=== PATIENT | female | born 1935 | race Caucasian/White ===

== ENCOUNTER 2018-04-21 17:46 | Emergency (ER) | payer OTHER ==
[~2018-04-21] VITALS: Ht 152.4 cm; Wt 52.6 kg
[2018-04-21 18:00] VITALS: BP 114/60
--- NOTE | 2018-04-21 19:00 | NUR ---
PT REFUSING TO STAY & BE TREATED, SON SIGNED AMA. MAYUR, SEWING MACHINE OPERATOR SEMIAUTOMATIC AWARE.
== END 2018-04-21 19:37 | disposition left against medical advice (07) ==
LOC: EDBD 17:55 → ER 17:55
DX: I10 Essential (primary) hypertension (principal); K21.9 Gastro-esophageal reflux disease without esophagitis; E78.00 Pure hypercholesterolemia, unspecified; F03.90 Unspecified dementia, unspecified severity, without behavioral disturbance, psychotic disturbance, mood disturbance, and anxiety
CPT/HCPCS: Z7502

== ENCOUNTER 2018-10-21 14:30 | Inpatient (IN) | payer MEDICARE, MEDICAID ==
[~2018-10-21] VITALS: Ht 160 cm; Wt 52.2 kg
--- NOTE | 2018-10-21 14:55 | NUR ---
LATOSHA FROM [facility], SEND BY PMD FOR ELEVATED K+ LEVEL. A/OX2, TAJIK SPEAKING, NO DISTRESS NOTED, NEEDS ATTENDED. KEPT COMFORTABLE. ATTACHED TO THE MONITOR.
[2018-10-21] MEDS ORDERED: ASCO500T9 PO (15:12)
[2018-10-21] MEDS ORDERED: ASPI-1169 PO (15:12)
[2018-10-21] MEDS ORDERED: ESCI5TAB PO (15:12)
[2018-10-21] MEDS ORDERED: ACET-868 PO (15:12)
[2018-10-21] MEDS ORDERED: ACET-2605 PO (15:12)
[2018-10-21] MEDS ORDERED: ALLO100T PO (15:12)
[2018-10-21] MEDS ORDERED: LORA0.5T PO (15:12)
[2018-10-21] MEDS ORDERED: AMLO5TAB9 PO (15:12)
[2018-10-21] MEDS ORDERED: HYDR-4076 PO ×2 (15:12)
[2018-10-21] MEDS ORDERED: ONDA4TAB5 PO (15:12)
[2018-10-21] MEDS ORDERED: PANT40TA2 PO (15:12)
[2018-10-21 15:23] LABS: BASOPHILS # (AUTO) 0.1 /CMM (0.0-0.2); BASOPHILS % (AUTO) 0.9 % (0.0-2.0); EOSINOPHILS % (AUTO) 4.3 % (0.0-6.0); HEMATOCRIT 26 % (33-45); HEMOGLOBIN 8.6 g/dL (11.5-14.8); LYMPHOCYTES # (AUTO) 1.4 /CMM (0.8-4.8); LYMPHOCYTES % (AUTO) 20.6 % (20.0-44.0); MEAN CORPUSCULAR HGB CONC 33 g/dl (31.0-36.0); MEAN CORPUSCULAR VOLUME 96 fL (82-100); MONOCYTES # (AUTO) 0.9 /CMM (0.1-1.30); MONOCYTES % (AUTO) 13.3 % (2.0-12.0); NEUTROPHILS % (AUTO) 60.9 % (43.0-81.0); PLATELET COUNT (AUTO) 235 /CMM (150-450); RED BLOOD CELL COUNT(AUTO) 2.74 MIL/uL (4.0-5.2); WHITE BLOOD COUNT (AUTO) 6.5 K/uL (4.3-11.0)
[2018-10-21 15:37] LABS: CARBON DIOXIDE 14 mmol/L (21-32); CHLORIDE 108 mmol/L (98-107); CREATININE 4.2 mg/dL (0.6-1.3); GLUCOSE 102 mg/dL (74-106); POTASSIUM 4.5 mmol/L (3.5-5.1); SODIUM SERUM 139 mmol/L (136-145); UREA NITROGEN, BLOOD 48 mg/dL (7-18)
[2018-10-21 15:41] LABS: CALCIUM, SERUM 8.2 mg/dL (8.5-10.1)
--- NOTE | 2018-10-21 16:44 | NUR ---
CALLED FOR BED, TURNED IN MOVE SHEET, GOING TO BED 308-1
--- NOTE | 2018-10-21 17:24 | NUR ---
REPORT GIVEN TO FAITH RANDHAWA.
[2018-10-21] MEDS ORDERED: IV NS 0.9% 1,000 ML IV PRN (17:45)
--- NOTE | 2018-10-21 17:59 | NUR ---
PATIENT TRANSFERRED TO ROOM 308 MED SURG. PATIENT IN STABLE CONDITION. UNA EDGE. ENDORSED TO FAITH RANDHAWA.
[2018-10-21] MEDS ORDERED: ACETAMINOPHEN 325 MG TABLET PO PRN (18:00)
[2018-10-21] MEDS ORDERED: MAG HYDROX/AL HYDROX/SIMETH 30 ML UDC PO PRN (18:00)
[2018-10-21] MEDS ORDERED: Z GUARD REMEDY 2 OZ OINT TP PRN (18:00)
[2018-10-21] MEDS ORDERED: ONDANSETRON HCL/PF 4 MG/2 ML VIAL IVP PRN (18:00)
[2018-10-21] MEDS ORDERED: hydrALAZINE HCL 25 MG TABLET PO PRN (18:00)
[2018-10-21] MEDS ORDERED: MAGNESIUM HYDROXIDE 30 ML UDC PO PRN (18:00)
[2018-10-21] MEDS ORDERED: HYDROCODONE/APAP 5/325MG 1 EACH TABLET PO PRN (18:00)
[2018-10-21] MEDS ORDERED: LORAZEPAM 0.5 MG TABLET PO PRN (18:00)
[2018-10-21 18:30] VITALS: BP 186/73
--- NOTE | 2018-10-21 19:30 | NUR ---
MS RN NOTES RECEIVED REPORT FROM FAITH RANDHAWA,PATIENT CAME FROM ER PER ANTHONY,WAS SENT FROM [facility] FOR ELEVATED POTASSIUM ON 10/15MNOW ELEVATED BUN AND CREATININE.A/O X1-2,SPEAK THAI WITH LITTLE KINYARWANDA, NOTED SLIGHT BRUISING ON BOTH UPPER ARMS,SALINE LOCK OUT,FOUND ON BEDSIDE TABLE.NO BLEEDING ON SITE.EATING RIGHT NOW DINNER FOOD.FALL PRECAUTION OBSERVED,BED ON LOWEST POSITION AND LOCKED.CALL LIGHT IN REACH,NEEDS ANTICIPATED.
[2018-10-21 19:58] VITALS: BP 160/71
--- NOTE | 2018-10-21 20:00 | NUR ---
MS RN NOTES NEW SALINE LOCK PLACE ON RIGHT FORE ARM #22,SECURED WITH BROWN SLEEVE.
[2018-10-21 20:37] VITALS: BP 160/71
[2018-10-21 21:22] LABS: HEMOGLOBIN 8.5 g/dL (11.5-14.8)
[2018-10-22 06:32] LABS: CHOLESTEROL 147 mg/dL (<200); HDL CHOLESTEROL 35 mg/dL (40-60); LDL 99 mg/dL (0-99); THYROID STIMULATING HORMONE 2.094 uIU/mL (0.358-3.74); TRIGLYCERIDES 81 mg/dL (30-150)
[2018-10-22 06:33] LABS: CALCIUM, SERUM 8.6 mg/dL (8.5-10.1); CARBON DIOXIDE 14 mmol/L (21-32); CHLORIDE 111 mmol/L (98-107); CREATININE 4.4 mg/dL (0.6-1.3); GLUCOSE 90 mg/dL (74-106); MAGNESIUM 1.4 mg/dL (1.8-2.4); PHOSPHORUS 5.4 mg/dL (2.5-4.9); POTASSIUM 4.9 mmol/L (3.5-5.1); SODIUM SERUM 140 mmol/L (136-145); UREA NITROGEN, BLOOD 55 mg/dL (7-18)
--- NOTE | 2018-10-22 06:34 | NUR ---
MS RN NOTES FAIRLY RESTED AT NIGHT,TINO ANY DISCOMFORTS,SALINE LOCK REMAINS PATENT ON RIGHT FORE ARM.CALL LIGHT IN REACHNEEDS ATTENDED,WILL ENDORSE TO DAY NURSE FOR LINO.
[2018-10-22 06:40] LABS: BASOPHILS # (AUTO) 0.1 /CMM (0.0-0.2); EOSINOPHILS % (AUTO) 5.3 % (0.0-6.0); HEMATOCRIT 24 % (33-45); HEMOGLOBIN 8.1 g/dL (11.5-14.8); LYMPHOCYTES # (AUTO) 1.3 /CMM (0.8-4.8); LYMPHOCYTES % (AUTO) 22.1 % (20.0-44.0); MEAN CORPUSCULAR HGB CONC 34 g/dl (31.0-36.0); MEAN CORPUSCULAR VOLUME 94 fL (82-100); MONOCYTES # (AUTO) 0.7 /CMM (0.1-1.30); MONOCYTES % (AUTO) 12.4 % (2.0-12.0); NEUTROPHILS # (AUTO) 3.4 /CMM (1.8-8.9); NEUTROPHILS % (AUTO) 59.2 % (43.0-81.0); PLATELET COUNT (AUTO) 202 /CMM (150-450); RED BLOOD CELL COUNT(AUTO) 2.54 MIL/uL (4.0-5.2); WHITE BLOOD COUNT (AUTO) 5.7 K/uL (4.3-11.0)
--- NOTE | 2018-10-22 07:27 | NUR ---
RN OPENING NOTES RECEIVED PATIENT IN BED RESTING, A/OX2, CAPE VERDEAN SPEAKING. NOT IN ANY FORM OF DISTRESS, NO SOB. NO S/S OF PAIN OR DISCOMFORT. IV ACCESS INTACT AND PATENT. KEPT PATIENT SAFE AND COMFORTABLE. BED IN LOW/LOCKED POSITION. SIDERAILS UPX2, CALL LIGHT IN REACH. WILL CONTINUE TO MONITOR ACCORDINGLY Addendum: 10/22/18 at 0735 by CECI ARANA BED ALARM ON
[2018-10-22 08:00] VITALS: BP 200/86
[2018-10-22] MEDS: ESCITALOPRAM OXALATE (10 MG) 10 MG TABLET PO SCH (08:20)
[2018-10-22] MEDS: PANTOPRAZOLE 40 MG TABLET.DR PO SCH (08:21)
[2018-10-22] MEDS: ASPIRIN 81 MG TAB.CHEW PO SCH (08:21)
[2018-10-22] MEDS: AMLODIPINE BESYLATE 5 MG TABLET PO SCH ×2 (08:21→16:28)
[2018-10-22] MEDS: ALLOPURINOL 100 MG TABLET PO SCH (08:21)
[2018-10-22] MEDS: hydrALAZINE HCL 25 MG TABLET PO SCH ×3 (08:22→16:28)
[2018-10-22] MEDS: ASCORBIC ACID 500 MG TABLET PO SCH (08:22)
[2018-10-22] MEDS ORDERED: hydrALAZINE HCL IV 20 MG VIAL IV PRN (09:00)
[2018-10-22 09:59] VITALS: BP 159/86
[2018-10-22 12:06] LABS: IRON, SERUM 40 ug/dl (50-175); TOTAL IRON BINDING CAPACITY 255 ug/dl (250-450)
--- NOTE | 2018-10-22 12:30 | NUR ---
RN NOTES PATIENT IS REFUSING CARE. ALSO REFUSED BREAKFAST AND LUNCH. ALWAYS SAYS "NO". CALLED CATHLEENLAZulema TO GET PATIENT BASELINE. PER STAFF, PATIENT ALERT AND ORIENTED, COOPERATIVE, FOLLOWS DIRECTION AND MED COMPLIANT, FEED SELF INDEPENDENTLY AND AMBULATORY. NOTIFIED DELL HEMPHILL NP. PER DELL, PATIENT NEEDS UA AND CULTURE. NO NEED FOR IVF AT THIS TIME. ORDERS NOTED AND WILL CARRY OUT.
[2018-10-22 16:00] VITALS: BP 180/78
[2018-10-22 16:05] LABS: APPEARANCE,URINE CLEAR (CLEAR); BILIRUBIN,URINE NEGATIVE (NEGATIVE); BLOOD, URINE NEGATIVE Ery/uL (NEGATIVE); KETONES,URINE NEGATIVE (NEGATIVE); LEUKOCYTE ESTERASE ,URINE NEGATIVE (NEGATIVE); NITRITE, URINE NEGATIVE (NEGATIVE); PROTEIN,URINE 1+ mg/dl (NEGATIVE); UGLUCOSE NEGATIVE (NEGATIVE); UROBILINOGEN,URINE 0.2 EU/dL (0.2)
[2018-10-22 16:07] LABS: COLOR,URINE OTHER (YELLOW)
[2018-10-22 16:32] LABS: BACTERIA,URINE None seen /HPF (None Seen); RBC,URINE 0-2 /HPF (0-2); SQUAMOUS EPITHELIAL CELL,UR Many /HPF (None Seen); WBC,URINE 0-2 /HPF (0-3)
[2018-10-22 18:00] VITALS: BP 140/85
--- NOTE | 2018-10-22 19:24 | NUR ---
RN CLOSING NOTES PATIENT IN STABLE CONDITION. ALL NEEDS ATTENDED AND PROVIDED. ALL DUE MEDICATIONS GIVEN ORDERED. URINE WAS COLLECTED BY FEMALE RN, PATIENT WAS COOPERATIVE IN THE AFTERNOON, TOOK MEDICATIONS, ATE DINNER. KEPT PATIENT SAFE AND COMFORTABLE. BED IN LOW/LOCKED POSITION, SIDERAILS UPX2, CALL LIGHT IN REACH. ENDORSED TO NIGHT RN FOR LINO.
--- NOTE | 2018-10-22 19:40 | NUR ---
MS RN NOTES RECEIVED ON BED ON HIGH FOWLERS POSITION,BREATHING REGULAR,NOT IN ANY FORM DISTRESS.SALINE LOCK RIGHT FORE ARM INTACT AND PATENT.GEL BED IN USED.FALL PRECAUTION OBSERVED.BED ON LOWEST POSITION AND LOCKED.CALL LIGHT IN REACH,NEEDS ANTICIPATED.
[2018-10-22 20:00] VITALS: BP 157/68
[2018-10-22 20:16] VITALS: BP 157/58
[2018-10-23 00:04] LABS: HEMOGLOBIN 8.2 g/dL (11.5-14.8)
--- NOTE | 2018-10-23 05:08 | NUR ---
MS RN NOTES REFUSED BLOOD DRAW THIS MORNING.
--- NOTE | 2018-10-23 06:39 | NUR ---
MS RN NOTES SLEPT WITH INTERVALS,REFUSING BLOOD DRAW MOST OF THE TIME,CHEST X-RAY DONE BY RADIOLOGY.IN NO ACUTE DISTRESS.WILL ENDORSE TO NORA RANDHAWA FOR LINO.
--- NOTE | 2018-10-23 07:37 | NUR ---
MS RN NOTES RECEIVED PATIENT IN BED RESTING COMFORTABLY. A/O X 1-2. ON ROOM AIR. NO COMPLAIN OF PAIN OR DISCOMFORT AT THIS TIME. IV ACCESS ON RIGHT FA #22, CURRENTLY ON HL. SAFETY MEASURES IN PLACE. BED IN LOW LOCKED POSITION, SIDE RAILS UP X2. CALL LIGHT WITHIN EASY REACH. WILL CONTINUE TO MONITOR.
[2018-10-23 08:00] VITALS: BP 170/71
[2018-10-23] MEDS: PANTOPRAZOLE 40 MG TABLET.DR PO SCH (08:20)
[2018-10-23] MEDS: hydrALAZINE HCL 25 MG TABLET PO SCH ×2 (08:21→12:06)
[2018-10-23] MEDS: AMLODIPINE BESYLATE 5 MG TABLET PO SCH (08:21)
[2018-10-23] MEDS: ASPIRIN 81 MG TAB.CHEW PO SCH (08:21)
[2018-10-23] MEDS: ASCORBIC ACID 500 MG TABLET PO SCH (08:22)
[2018-10-23] MEDS: ALLOPURINOL 100 MG TABLET PO SCH (08:22)
[2018-10-23] MEDS: ESCITALOPRAM OXALATE (10 MG) 10 MG TABLET PO SCH (08:22)
[2018-10-23 11:02] LABS: BASOPHILS # (AUTO) 0.1 /CMM (0.0-0.2); BASOPHILS % (AUTO) 1.4 % (0.0-2.0); EOSINOPHILS % (AUTO) 7.8 % (0.0-6.0); HEMATOCRIT 26 % (33-45); HEMOGLOBIN 8.5 g/dL (11.5-14.8); LYMPHOCYTES # (AUTO) 1.2 /CMM (0.8-4.8); MEAN CORPUSCULAR HGB CONC 33 g/dl (31.0-36.0); MEAN CORPUSCULAR VOLUME 95 fL (82-100); MONOCYTES # (AUTO) 0.6 /CMM (0.1-1.30); MONOCYTES % (AUTO) 11.9 % (2.0-12.0); NEUTROPHILS % (AUTO) 55.9 % (43.0-81.0); PLATELET COUNT (AUTO) 229 /CMM (150-450); RED BLOOD CELL COUNT(AUTO) 2.72 MIL/uL (4.0-5.2); WHITE BLOOD COUNT (AUTO) 5.4 K/uL (4.3-11.0)
[2018-10-23 11:17] LABS: ALANINE AMINOTRANSFERASE 19 U/L (12-78); ALBUMIN 2.7 g/dL (3.4-5.0); ALKALINE PHOSPHATASE 63 U/L (46-116); ASPARTATE AMINOTRANSFERASE 16 U/L (15-37); BILIRUBIN,TOTAL 0.2 mg/dL (0.2-1.0); CALCIUM, SERUM 8.5 mg/dL (8.5-10.1); CARBON DIOXIDE 16 mmol/L (21-32); CHLORIDE 109 mmol/L (98-107); CREATININE 4.6 mg/dL (0.6-1.3); GLUCOSE 136 mg/dL (74-106); MAGNESIUM 1.4 mg/dL (1.8-2.4); PHOSPHORUS 4.2 mg/dL (2.5-4.9); POTASSIUM 3.9 mmol/L (3.5-5.1); SODIUM SERUM 140 mmol/L (136-145); TOTAL PROTEIN, SERUM 6.1 g/dL (6.4-8.2); UREA NITROGEN, BLOOD 58 mg/dL (7-18)
[2018-10-23 11:51] LABS: CREATINE KINASE, TOTAL 34 U/L (26-192)
[2018-10-23] MEDS ORDERED: FERR325T23 PO (11:54)
[2018-10-23 12:06] VITALS: BP 146/74
--- NOTE | 2018-10-23 13:45 | NUR ---
MS RN NOTES CALLED [facility], SPOKE TO ALTON @ 3906 TO GIVE REPORT REGARDING THE PATIENT STATUS AND THAT PATIENT WILL BE GOING BACK AT THEIR FACILITY. WILL CONTINUE TO MONITOR.
--- NOTE | 2018-10-23 15:45 | NUR ---
MS AREA COORDINATOR NOTES PATIENT DISCHARGED IN STABLE CONDITION. A/O X 2. V/S TAKEN, STABLE AND RECORDED. PATIENT'S IV ACCESS REMOVED AND APPLIED PRESSURE DRESSINGS. SKIN IS INTACT. NAME ARM BAND REMOVED. ALL BELONGINGS CHECKED AND SIGNED. HEALTH TEACHINGS/DISCHARGED INSTRUCTIONS GIVEN AND VERBALIZED UNDERSTANDING. PATIENT LEFT UNIT VIA GURNEY WITH 2 AMBULANCE STAFF AT 1540 WITH NO ACUTE SIGNS OF DISTRESS. CHARGE NURSE AWARE OF DISCHARGED.
[2018-10-24 13:06] LABS: PTH, INTACT 102 pg/mL (15-65)
[2018-10-26 13:06] LABS: *SPE ALBUMIN 2.9 g/dL (2.9-4.4); *SPE ALPHA-1-GLOBULIN 0.2 g/dL (0.0-0.4); *SPE ALPHA-2-GLOBULIN 1.1 g/dL (0.4-1.0); *SPE BETA GLOBULIN 0.8 g/dL (0.7-1.3); *SPE GLOBULIN, TOTAL 2.8 g/dL (2.2-3.9); *SPE M-SPIKE Not Observed g/dL (Not Observed); *SPEGAMMA GLOBULIN 0.7 g/dL (0.4-1.8)
== END 2018-10-23 15:50 | DRG 682 ==
LOC: ER 14:30 → MED 17:15
PROVIDERS: ADMIT Nurse Practitioner Acute Care; ATTEND Nurse Practitioner Acute Care
DX: I12.9 Hypertensive chronic kidney disease with stage 1 through stage 4 chronic kidney disease, or unspecified chronic kidney disease (principal); N17.0 Acute kidney failure with tubular necrosis; N18.4 Chronic kidney disease, stage 4 (severe); E87.5 Hyperkalemia; K21.9 Gastro-esophageal reflux disease without esophagitis; F03.90 Unspecified dementia, unspecified severity, without behavioral disturbance, psychotic disturbance, mood disturbance, and anxiety; Z79.899 Other long term (current) drug therapy; Z79.82 Long term (current) use of aspirin; F32.9 Major depressive disorder, single episode, unspecified; Z90.49 Acquired absence of other specified parts of digestive tract; D63.8 Anemia in other chronic diseases classified elsewhere; M85.9 Disorder of bone density and structure, unspecified
CPT/HCPCS: 36415; 71045-TC; 76770-TC; 80048-TC; 80053-TC; 80061-TC; 81000-TC; 82550-TC; 83540-TC; 83735-TC; 83970; 84100-TC; 84155; 84165; 84443-TC; 85025-TC; 85027-TC; 87081-TC; 87086-TC; G0378

== ENCOUNTER 2019-05-03 21:18 | Inpatient (IN) | payer MEDICAID, MEDICARE ==
[~2019-05-03] VITALS: Ht 147.3 cm; Wt 45.8 kg
[~2019-05-03 21:18] MED LIST: ACET-2605 PO; ACET-868 PO; ALLO100T PO; AMLO5TAB9 PO; ASCO500T9 PO; ASPI-1169 PO; ESCI5TAB PO; FERR325T23 PO; HYDR-4076 PO; LORA0.5T PO; ONDA4TAB5 PO; PANT40TA2 PO
--- NOTE | 2019-05-03 21:31 | NUR ---
PT JOEL BORDEN FROM [facility] WITH A C/O N/V X2 IN THE MORNING, HEADACHE AND PT MISSED HD TODAY BECAUSE SHE DID NOT FEEL WELL. PT DENIES N/V AND HEADACHE AT THIS TIME. PT HAS [facility] TRUE CATH. PT WAS PLACED ON THE MONITOR AND CONTINUOUS PULSE OX.
--- NOTE | 2019-05-03 21:45 | NUR ---
20G IV STARTED IN RFA. UNABLE TO OBTAIN A BLOOD SAMPLE. JANNY, INSIDE SALES SPECIALIST IS AT THE BEDSIDE.
[2019-05-03 21:51] LABS: BASOPHILS # (AUTO) 0.1 /CMM (0.0-0.2); BASOPHILS % (AUTO) 0.7 % (0.0-2.0); HEMATOCRIT 41 % (33-45); HEMOGLOBIN 13.4 g/dL (11.5-14.8); LYMPHOCYTES # (AUTO) 1.5 /CMM (0.8-4.8); LYMPHOCYTES % (AUTO) 9.1 % (20.0-44.0); MEAN CORPUSCULAR HGB CONC 33 g/dl (31.0-36.0); MEAN CORPUSCULAR VOLUME 100 fL (82-100); MONOCYTES # (AUTO) 0.8 /CMM (0.1-1.30); MONOCYTES % (AUTO) 4.6 % (2.0-12.0); NEUTROPHILS # (AUTO) 13.9 /CMM (1.8-8.9); NEUTROPHILS % (AUTO) 85.6 % (43.0-81.0); PLATELET COUNT (AUTO) 181 /CMM (150-450); RED BLOOD CELL COUNT(AUTO) 4.14 MIL/uL (4.0-5.2); WHITE BLOOD COUNT (AUTO) 16.2 K/uL (4.3-11.0)
[2019-05-03 22:24] LABS: CALCIUM, SERUM 9.8 mg/dL (8.5-10.1); CARBON DIOXIDE 30 mmol/L (21-32); CHLORIDE 98 mmol/L (98-107); GLUCOSE 139 mg/dL (74-106); SODIUM SERUM 142 mmol/L (136-145); UREA NITROGEN, BLOOD 78 mg/dL (7-18)
[2019-05-03 22:27] LABS: CREATININE 9.5 mg/dL (0.6-1.3)
[2019-05-03 22:30] LABS: ALANINE AMINOTRANSFERASE 16 U/L (12-78); ALBUMIN 3.6 g/dL (3.4-5.0); ALKALINE PHOSPHATASE 88 U/L (46-116); ASPARTATE AMINOTRANSFERASE 18 U/L (15-37); B-TYPE NATRIURETIC PEPTIDE 8300 PG/ML (0-125); BILIRUBIN,DIRECT 0.1 mg/dL (0.0-0.2); BILIRUBIN,TOTAL 0.5 mg/dL (0.2-1.0); TOTAL PROTEIN, SERUM 7.4 g/dL (6.4-8.2)
[2019-05-03] MEDS ORDERED: ACETAMINOPHEN ES 500 MG TABLET PO ONE (22:30)
[2019-05-03] MEDS ORDERED: ONDANSETRON HCL/PF - ER 4 MG/2 ML VIAL IV ONE (22:30)
--- NOTE | 2019-05-03 22:30 | NUR ---
PT RETURNED FROM CT.
[2019-05-03] MEDS ORDERED: ONDANSETRON HCL/PF 4 MG/2 ML VIAL ONE (22:36)
[2019-05-03] MEDS ORDERED: ACETAMINOPHEN ES 500 MG TABLET ONE (22:37)
--- NOTE | 2019-05-04 00:18 | NUR ---
PT APPEARS TO BE RESTING COMFORTABLY.
--- NOTE | 2019-05-04 00:19 | NUR ---
CALLING REPORT TO AIRCRAFT POWERTRAIN REPAIRER. PT IS GOING TO RM 114
--- NOTE | 2019-05-04 00:20 | NUR ---
RECEIVED REPORT ON PT FROM EDIS LEE IN ER.
[2019-05-04] MEDS ORDERED: ACETAMINOPHEN 325 MG TABLET PO PRN (00:30)
[2019-05-04] MEDS ORDERED: ZOLPIDEM TARTRATE 5 MG TABLET PO PRN (00:30)
[2019-05-04] MEDS ORDERED: HYDROCODONE/APAP 5/325MG 1 EACH TABLET PO PRN (00:30)
[2019-05-04] MEDS ORDERED: MAG HYDROX/AL HYDROX/SIMETH 30 ML UDC PO PRN (00:30)
[2019-05-04] MEDS ORDERED: MAGNESIUM HYDROXIDE 30 ML UDC PO PRN (00:30)
[2019-05-04] MEDS ORDERED: Z GUARD REMEDY 2 OZ OINT TP PRN (00:30)
[2019-05-04] MEDS ORDERED: ONDANSETRON HCL/PF 4 MG/2 ML VIAL IVP PRN (00:30)
[2019-05-04 00:35] VITALS: BP 155/96
--- NOTE | 2019-05-04 00:40 | NUR ---
RN OPENING NOTES: PT ADMITTED FROM ER DEPT VIA STRETCHER ACCOMPANIED BY 1 PERSONNEL. UNDER CARE OF EFRAIN MONK W/ ADMIT DX OF NSTEMI AND CHF. HX OF DEMENTIA, CAD, ANEMIA, GERD, ESRD. ON DIALYSIS. HAS RIGHT UPPER CHEST TRUE CATHETER. LAST DIALYSIS ON 04.30.2019 REFUSED DIALYSIS ON 05.03.2019. TRANSFERRED TO BED. A&0X3, ABLE TO MAKE NEEDS KNOWN. NO ACUTE DISTRESS NOTED. ON ROOM AIR. HAS LAC #20 PATENT AND FLUSHED. ON TELE MONITOR SHOWING SR. BED BATH GIVEN. SKIN TAG ON RIGHT INNER LEG AND SACRAL PRESSURE SORE NOTED. PICTURES TAKEN. WOUND CARE TO F/U. VS: B/P 155/96, P 78, RR 18, SAO2 100%, T 97.5.WILL CONTINUE TO MONITOR.
[2019-05-04 00:58] LABS: PHOSPHORUS 4.6 mg/dL (2.5-4.9)
[2019-05-04] MEDS ORDERED: hydrALAZINE HCL IV 20 MG VIAL IV PRN (01:00)
--- NOTE | 2019-05-04 01:10 | NUR ---
RN NOTES, EFRAIN MONK ON PATIENTS ROOM UPON ADMISSION AND NOTED HIGH SYSTOLIC BLOOD PRESSURE 170S-180S, AND RECEIVED A NEW ORDER FOR HYDRALAZINE IV, NOTED AND CARRIED OUT, ADMINISTERED ORDERED.
[2019-05-04] MEDS: MORPHINE SULFATE INJ 2 MG/ML DISP.SYRIN IV PRN ×3 (01:14→15:40)
--- NOTE | 2019-05-04 01:15 | NUR ---
RN NOTES, PATIENT COMPLAINED OF CHEST PLAIN,10/31, MORPHINE ADMINISTERED AND ORDERED FOR STAT EKG RECEIVED, NOTED AND CARRIED OUT.
--- NOTE | 2019-05-04 01:36 | NUR ---
RN NOTES, PATIENT STATED AFTER SHE HAD PAIN ALL OVER, WHEN ASKED WHAT ABOUT THE CHEST PAIN, SHE STATED PAIN WENT ALL OVER MY BODY, STILL BLOOD PRESSURE NOTED HIGH, WILL CONTINUE TO MONITOR CLOSELY.
[2019-05-04 04:00] VITALS: BP 131/67
--- NOTE | 2019-05-04 06:33 | NUR ---
RN CLOSING NOTES: PT RESTING IN BED A&OX2-3. NO ACUTE DISTRESS NOTED. NO SIGNIFICANT CHANGES DURING SHIFT. PT ON TELE MONITOR READING SR. HAS LAC #20 PATENT AND FLUSHING, INTACT, CLEAN/DRY. ALL NEEDS ANTICIPATED AND MET. BED IN LOWEST AND LOCKED POSITION, SIDE RAILS UP X2, CALL LIGHT WITHIN REACH. WILL ENDORSE TO AM NURSE FOR LINO.
[2019-05-04 08:00] VITALS: BP 121/55
[2019-05-04] MEDS ORDERED: CYAN-51 PO (08:02)
[2019-05-04] MEDS ORDERED: FERR325T23 PO (08:02)
[2019-05-04] MEDS ORDERED: ATOR40TA PO (08:02)
[2019-05-04] MEDS ORDERED: SENN-168 PO (08:02)
[2019-05-04] MEDS ORDERED: DOCU-141 PO (08:02)
[2019-05-04] MEDS ORDERED: METO-295 PO (08:02)
[2019-05-04] MEDS ORDERED: FOLI0.8T2 PO (08:02)
[2019-05-04] MEDS ORDERED: METO25TA6 PO (08:02)
[2019-05-04] MEDS: ASPIRIN 81 MG TAB.CHEW PO SCH (08:08)
[2019-05-04 12:00] VITALS: BP_SYST 140; BP_SYST 97; BP_DIAS 56; BP_DIAS 70
[2019-05-04] MEDS: CARVEDILOL 6.25 MG TABLET PO SCH ×2 (12:00→21:18)
[2019-05-04 16:00] VITALS: BP 112/74
--- NOTE | 2019-05-04 19:15 | NUR ---
BLACKTOP SPREADER OPENING NOTES RECEIVED MS RIVERA IN BED AWAKE HD ONGOING, NO SIGN AND SYMPTOMS OF RESPIRATORY DISTRESS, O2 SAT @ >92% VIA ROOM AIR PT IS PRYDEINIG SPEAKING ALERT BUT ORIENTED X2, PT IS A LITTLE GIRON THIS TIME, WITH IV LINE ON L AC,PATENT, FLUSHING WELL, PERMACATH ON R UPPER CHESTWALL, KEPT PATIENT COMFORTABLE ON BED SAFETY MEASURE MAINTAINED, SIDE RAILS UP X3 BED ON LOWEST POSITION WILL CONTINUE TO MONITOR
--- NOTE | 2019-05-04 19:28 | NUR ---
TELE/RN CLOSING NOTES PATIENT CONTINUES TO REMAIN IN STABLE CONDITION THROUGHOUT THE SHIFT. PROVIDED COMFORT AND SAFETY. PATIENT ABLE TO TOLERATE MEALS AND MEDS WELL. PATIENT TOLERATED DIALYSIS WELL. IV ACCESS INTACT AND PATENT. FLUSHING WELL. NO S/S INFECTION AT THIS TIME. ALL NEEDS ANTICIPATED. CALL LIGHT WITHIN REACHED. BED LOCKED AND IN LOWEST POSITION. SAFETY MAINTAINED. ENDORSED TO PM NURSE FOR LINO.
[2019-05-04 20:00] VITALS: BP 120/67
[2019-05-05] VITALS (9 sets, daily range): BP systolic 96–159; BP diastolic 51–75
--- NOTE | 2019-05-05 00:30 | NUR ---
MANAGER FITNESS NOTES PT IS SLEEPING NO SIGN AND SYMPTOMS OF RESPIRATORY DISTRESS, SAFETY MEASURES STILL MAINTAINED GIVE REPORT TO MS OC RANDHAWA FOR CONTINUITY OF CARE
--- NOTE | 2019-05-05 07:30 | NUR ---
RN OPENING NOTE: RECEIVED PATIENT IN BED THIS MORNING SLEEPING WITH THE COVERS OVER HER FACE. ATTEMPTED TO ASSESS PATIENT, BUT PATIENT KEPT ON REFUSING MORNING ASSESSMENT, MOVING MY HAND OUT OF THE WAY WHEN I WOULD TRY TO PUT THE COVERS DOWN. PATIENT IS AGITATED AND WANTS TO BE LEFT ALONE. WILL ATTEMPT TO ASSESS HER AGAIN IN A LITTLE WHILE. PATIENT ON TELE MONITOR READING SINUS RHYTHM. SAFETY MEASURES IMPLEMENTED, BED IN LOWEST POSITION, LOCKED, SIDE RAILS UP X3, CALL LIGHT WITHIN REACH, WILL CONTINUE TO MONITOR PATIENT FOR ANY CHANGES. Addendum: 05/05/19 at 0817 by NIMA ANTHONY RN PATIENT IS AWAKE, EATING BREAKFAST. NO SIGNS OF DISTRESS NOTED. ALERT X2. IV ON LAC, C/D/I, FLUSHING WELL. HD CATH ON [facility]. REFUSED ASSESSMENT OF LUNGS. NO EDEMA NOTED. WILL CONTINUE TO MONITOR PATIENT.
--- NOTE | 2019-05-05 07:33 | NUR ---
TELE/RN CLOSING NOTE PATIENT IN BED ALERT WITH NO SIGN OF ANY DISTRESS. ON ROOM AIR SATURATING IN THE 97%. PATIENT ON THE MONITOR SHOWING SR HR IN THE 70'S. ALL SAFETY PRECAUTION APPLIED. BED ALARM ON. ENDORSED PATIENT TO MORNING SHIFT NURSE FOR LINO.
[2019-05-05 07:46] LABS: BASOPHILS # (AUTO) 0.1 /CMM (0.0-0.2); BASOPHILS % (AUTO) 0.5 % (0.0-2.0); EOSINOPHILS % (AUTO) 0.2 % (0.0-6.0); HEMATOCRIT 34 % (33-45); LYMPHOCYTES # (AUTO) 1.6 /CMM (0.8-4.8); LYMPHOCYTES % (AUTO) 12.7 % (20.0-44.0); MEAN CORPUSCULAR HGB CONC 33 g/dl (31.0-36.0); MEAN CORPUSCULAR VOLUME 102 fL (82-100); MONOCYTES # (AUTO) 1.1 /CMM (0.1-1.30); MONOCYTES % (AUTO) 8.9 % (2.0-12.0); NEUTROPHILS # (AUTO) 9.5 /CMM (1.8-8.9); NEUTROPHILS % (AUTO) 77.7 % (43.0-81.0); PLATELET COUNT (AUTO) 126 /CMM (150-450); RED BLOOD CELL COUNT(AUTO) 3.33 MIL/uL (4.0-5.2); WHITE BLOOD COUNT (AUTO) 12.2 K/uL (4.3-11.0)
[2019-05-05 08:02] LABS: CALCIUM, SERUM 8.9 mg/dL (8.5-10.1); CARBON DIOXIDE 30 mmol/L (21-32); CHLORIDE 107 mmol/L (98-107); CREATININE 6.3 mg/dL (0.6-1.3); GLUCOSE 107 mg/dL (74-106); MAGNESIUM 2.1 mg/dL (1.8-2.4); PHOSPHORUS 4.3 mg/dL (2.5-4.9); POTASSIUM 4.5 mmol/L (3.5-5.1); SODIUM SERUM 145 mmol/L (136-145); UREA NITROGEN, BLOOD 39 mg/dL (7-18)
[2019-05-05] MEDS: CARVEDILOL 6.25 MG TABLET PO SCH ×2 (09:00→21:23)
[2019-05-05] MEDS: ASPIRIN 81 MG TAB.CHEW PO SCH (09:19)
[2019-05-05 09:27] LABS: CHOLESTEROL 112 mg/dL (<200); HDL CHOLESTEROL 35 mg/dL (40-60); LDL 59 mg/dL (0-99); TRIGLYCERIDES 86 mg/dL (30-150)
--- NOTE | 2019-05-05 09:35 | NUR ---
INFORMED BRADEN JACKSON FOR MED RECON.
--- NOTE | 2019-05-05 10:44 | NUR ---
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 RECOMMENDATIONS MADE FOR SKIN PROTECTION. DISCUSSED WITH NURSING STAFF. PLASTIC SURGERY TEAM CONSULTED FOR SURGICAL CONSULT. DR HERRERA NOTIFIED. WILL SEE PRN. SANDHU ISOFLEX LOW AIRLOSS BED TO BE PLACED. CURRENT TEDDY SCORE IS 15. Addendum: 05/05/19 at 1046 by HANNAH REYES WNDNU Amended: Links added.
[2019-05-05] MEDS ORDERED: ACETAMINOPHEN 325 MG TABLET PO PRN (12:30)
[2019-05-05] MEDS ORDERED: MISCELLANEOUS MED 1 EA EA PO PRN (12:30)
[2019-05-05] MEDS ORDERED: METOCLOPRAMIDE HCL 10 MG TABLET PO PRN (12:30)
[2019-05-05] MEDS: hydrALAZINE HCL 25 MG TABLET PO SCH ×2 (13:08→16:36)
--- NOTE | 2019-05-05 15:01 | NUR ---
PATIENT C/O CHEST PAIN. PRN EKG ORDERED PER WILSTEIN'S NOTES.
[2019-05-05] MEDS: HYDROGEL DRESSING 90 GM TUBE TP SCH (15:13)
[2019-05-05] MEDS: FERROUS SULFATE (325 MG) 325 MG/TAB TABLET PO SCH ×2 (16:35→16:45)
[2019-05-05] MEDS: DOCUSATE SODIUM 100 MG CAPSULE PO SCH ×2 (16:35→16:44)
[2019-05-05] MEDS: SENNOSIDES 8.6 MG TABLET PO SCH ×2 (16:35→16:45)
[2019-05-05] MEDS: METOPROLOL TARTRATE 25 MG TABLET PO SCH (16:36)
[2019-05-05] MEDS: AMLODIPINE BESYLATE 5 MG TABLET PO SCH (16:36)
--- NOTE | 2019-05-05 19:10 | NUR ---
FAN ENGINE ENGINEER OPENING NOTES RECEIVED MS RIVERA IN BED AWAKE ON TELE MONITOR WITH CURRENT READING SR WITH INVERTED PV'S ON 80'S NO SIGN AND SYMPTOMS OF RESPIRATORY DISTRESS, O2 SAT @ >92% VIA ROOM AIR PT IS SLOVENIAN SPEAKING ALERT BUT ORIENTED X3, PT IS COOPERATIVE WITH IV LINE ON L AC,PATENT, FLUSHING WELL, PERMACATH ON R UPPER CHESTWALL, KEPT PATIENT COMFORTABLE ON BED SAFETY MEASURE MAINTAINED, SIDE RAILS UP X3 BED ON LOWEST POSITION WILL, CALL LIGHT WITHIN REACH CONTINUE TO MONITOR
--- NOTE | 2019-05-05 19:32 | NUR ---
RN CLOSING NOTE: PATIENT IS RESTING IN BED. NO ACUTE DISTRESS NOTED. VSS. IV FLUSHING WELL. ON TELE MONITOR, SR. SAFETY MEASURES IMPLEMENTED, BED IN LOWEST POSITION, LOCKED, SIDE RAILS UP X3, CALL LIGHT WITHIN REACH. WILL ENDORSE TO ONCOMING RN FOR CONTINUITY OF CARE.
[2019-05-05] MEDS: ATORVASTATIN 40 MG TABLET PO SCH (21:22)
[2019-05-06] VITALS (9 sets, daily range): BP systolic 101–159; BP diastolic 45–63
[2019-05-06] MEDS: PANTOPRAZOLE 40 MG TABLET.DR PO SCH ×2 (07:30→08:02)
--- NOTE | 2019-05-06 07:35 | NUR ---
JENNIE/RN CLOSING NOTES PATIENT CONTINUES TO REMAIN IN STABLE CONDITION THROUGHOUT THE SHIFT. TELE MONITOR READING AT SR 70'S-80'S PROVIDED COMFORT AND SAFETY. IV ACCESS INTACT AND PATENT. FLUSHING WELL. NO S/S INFECTION AT THIS TIME.NO SIGN AND SYMPTOMS OF DISTRESS NOTED ALL NEEDS ANTICIPATED. CALL LIGHT WITHIN REACHED. BED LOCKED AND IN LOWEST POSITION. SAFETY MAINTAINED. ENDORSED TO AM NURSE FOR LINO.
[2019-05-06 07:49] LABS: BASOPHILS # (AUTO) 0.1 /CMM (0.0-0.2); BASOPHILS % (AUTO) 1.1 % (0.0-2.0); HEMATOCRIT 31 % (33-45); HEMOGLOBIN 10.6 g/dL (11.5-14.8); LYMPHOCYTES # (AUTO) 2.1 /CMM (0.8-4.8); LYMPHOCYTES % (AUTO) 26.1 % (20.0-44.0); MEAN CORPUSCULAR HGB CONC 34 g/dl (31.0-36.0); MEAN CORPUSCULAR VOLUME 101 fL (82-100); MONOCYTES # (AUTO) 0.7 /CMM (0.1-1.30); MONOCYTES % (AUTO) 8.7 % (2.0-12.0); NEUTROPHILS # (AUTO) 5.1 /CMM (1.8-8.9); NEUTROPHILS % (AUTO) 62.1 % (43.0-81.0); PLATELET COUNT (AUTO) 147 /CMM (150-450); WHITE BLOOD COUNT (AUTO) 8.2 K/uL (4.3-11.0)
[2019-05-06 07:57] LABS: CALCIUM, SERUM 8.3 mg/dL (8.5-10.1); CARBON DIOXIDE 28 mmol/L (21-32); CHLORIDE 105 mmol/L (98-107); GLUCOSE 94 mg/dL (74-106); MAGNESIUM 2.1 mg/dL (1.8-2.4); PHOSPHORUS 3.8 mg/dL (2.5-4.9); POTASSIUM 4.6 mmol/L (3.5-5.1); SODIUM SERUM 142 mmol/L (136-145); UREA NITROGEN, BLOOD 49 mg/dL (7-18)
[2019-05-06 08:01] LABS: CREATININE 7.6 mg/dL (0.6-1.3)
--- NOTE | 2019-05-06 08:39 | NUR ---
rn note attempted to reach BRADEN JACKSON TO REPORT CR LEVEL OF 7.6, THROUGH EPIC EXCHANGE, NO CALL BACK YET FROM .
--- NOTE | 2019-05-06 08:45 | NUR ---
RNN OTE LEFT MESSAGE FOR DR IRELAND WITH SUE, CHIEF TECHNOLOGY OFFICER, ABOUT CR LEVEL 7.6. NO CALL BACK YET.
[2019-05-06] MEDS: FERROUS SULFATE (325 MG) 325 MG/TAB TABLET PO SCH ×3 (09:00→17:48)
[2019-05-06] MEDS: CYANOCOBALAMIN 500 MCG TABLET PO SCH ×2 (09:00→09:01)
[2019-05-06] MEDS: DOCUSATE SODIUM 100 MG CAPSULE PO SCH ×3 (09:00→17:48)
[2019-05-06] MEDS: AMLODIPINE BESYLATE 5 MG TABLET PO SCH ×2 (09:00→17:47)
[2019-05-06] MEDS: METOPROLOL TARTRATE 25 MG TABLET PO SCH ×2 (09:00→17:48)
[2019-05-06] MEDS: SENNOSIDES 8.6 MG TABLET PO SCH ×3 (09:00→17:48)
[2019-05-06] MEDS: hydrALAZINE HCL 25 MG TABLET PO SCH ×3 (09:00→17:00)
[2019-05-06] MEDS: VIT B CMPLX 3/FA/VIT C/BIOTIN 1 TAB TABLET PO SCH ×2 (09:00→09:02)
[2019-05-06] MEDS: ASPIRIN 81 MG TAB.CHEW PO SCH ×2 (09:00→09:01)
--- NOTE | 2019-05-06 09:00 | NUR ---
rn note morning bp meds held due to hd
[2019-05-06] MEDS: HYDROGEL DRESSING 90 GM TUBE TP SCH (09:02)
[2019-05-06] MEDS: CARVEDILOL 6.25 MG TABLET PO SCH ×2 (11:18→21:00)
--- NOTE | 2019-05-06 13:46 | NUR ---
corn detasseler Notes Hydralazine was held due to low BP. BP 101/45 P.85 PROJECT ADMINISTRATOR Zoie Boateng notified.
--- NOTE | 2019-05-06 18:59 | NUR ---
HYDRALAZINE NOT GIVEN, BP IS LOW. Addendum: 05/06/19 at 1900 by FRANKY MOCTEZUMA RN BP 97/43 MMHG HR 80
--- NOTE | 2019-05-06 19:00 | NUR ---
RN NOTE PT IS OLIGURIC, ENCOURAGED TO URINATE OR GO TO THE BATHROOM, BUT REFUSED. PT REFUSED TO BE TOUCHED AND DO STRAIGHT IN AND OUT CATHETER. WILL ENDORSE TO ARTIFICIAL GLASS EYE MAKER TO ATTEMPT LATER.
--- NOTE | 2019-05-06 19:50 | NUR ---
HOSPICE CONSULTANT NOTE: PATIENT RESTING IN BED, NO ACUTE DISTRESS NOTED. BREATHING EVEN AND UNLABORED, NO SOB NOTED. TELE READING SR 76 WITH INVERTED T WAVE. IV TO LAC IN PLACE. BED LOCKED AND IN LOWEST POSITION, CALL LIGHT IN REACH. WILL CONTINUE TO MONITOR.
[2019-05-06] MEDS: ATORVASTATIN 40 MG TABLET PO SCH (21:15)
--- NOTE | 2019-05-06 21:15 | NUR ---
APPLICATIONS INTERN NOTE: PATIENT COREG HELD, PATIENT BLOOD PRESSURE 102/56, HR 74. PATIENT ALSO REFUSED LIPITOR, EXPLAINED RISK AND BENEFITS, AND CONTINUES TO REFUSE. WILL CONTINUE TO MONITOR.
[2019-05-07 00:15] VITALS: BP 106/64
[2019-05-07 04:15] VITALS: BP 131/59
--- NOTE | 2019-05-07 06:10 | NUR ---
WEAVER DOBBY LOOM NOTE: PATIENT RESTING IN BED, NO ACUTE DISTRESS NOTED. BREATHING EVEN AND UNLABORED, NO SOB NOTED. TELE READING SR 70'S WITH INVERTED T WAVE. IV TO LAC IN PLACE. BED LOCKED AND IN LOWEST POSITION, CALL LIGHT IN REACH. WILL ENDORSE TO DAY NURSE TO CONTINUE WITH PLAN OF CARE.
[2019-05-07] MEDS: PANTOPRAZOLE 40 MG TABLET.DR PO SCH (07:30)
--- NOTE | 2019-05-07 07:35 | NUR ---
LINE ERECTOR NOTES OPENING RECEIVED PATIENT IN BED A/OX 3 IRANIAN SPEAKER. REFUSED THE BLOOD DRAW AND VITALS. NO SOB OR DISCOMFORT NOTED AT THIS TIME. WILL FOLLOW UP WITH PT. BED AT THE LOWEST POSITION, BED ALARM ON. CALL LIGHT WITHIN REACH.
[2019-05-07 08:00] VITALS: BP 131/59
[2019-05-07] MEDS ORDERED: MAGN400O6 PO (08:21)
[2019-05-07] MEDS ORDERED: Hydrogel Dressing TP (08:21)
[2019-05-07] MEDS: CARVEDILOL 6.25 MG TABLET PO SCH ×2 (09:00→21:03)
[2019-05-07] MEDS: hydrALAZINE HCL 25 MG TABLET PO SCH ×3 (09:00→17:00)
[2019-05-07] MEDS: AMLODIPINE BESYLATE 5 MG TABLET PO SCH ×2 (09:00→17:00)
[2019-05-07] MEDS: HYDROGEL DRESSING 90 GM TUBE TP SCH (09:00)
[2019-05-07] MEDS: METOPROLOL TARTRATE 25 MG TABLET PO SCH ×2 (09:00→17:00)
[2019-05-07] MEDS: CYANOCOBALAMIN 500 MCG TABLET PO SCH (09:00)
[2019-05-07] MEDS: DOCUSATE SODIUM 100 MG CAPSULE PO SCH ×2 (09:00→17:00)
[2019-05-07] MEDS: FERROUS SULFATE (325 MG) 325 MG/TAB TABLET PO SCH ×2 (09:00→17:00)
[2019-05-07] MEDS: VIT B CMPLX 3/FA/VIT C/BIOTIN 1 TAB TABLET PO SCH (09:00)
[2019-05-07] MEDS: SENNOSIDES 8.6 MG TABLET PO SCH ×2 (09:00→17:00)
[2019-05-07] MEDS: ASPIRIN 81 MG TAB.CHEW PO SCH (09:00)
--- NOTE | 2019-05-07 10:24 | NUR ---
LABORER CONCRETE PAVING NOTES PATIENT IS REFUSING TO HAVE VITALS AND MEDICATIONS.
[2019-05-07 12:00] VITALS: BP 136/62
--- NOTE | 2019-05-07 15:32 | NUR ---
DISCUSSED WITH MD PATIENT REFUSING TREATMENT/CARE,NEED PSYCHE EVAL PRIOR TO DISCHARGE.FACE SHEET FAXED TO [employer] [facility] DR. NED VEGA.
[2019-05-07 15:33] LABS: BASOPHILS % (AUTO) 0.8 % (0.0-2.0); EOSINOPHILS % (AUTO) 2.5 % (0.0-6.0); HEMATOCRIT 28 % (33-45); HEMOGLOBIN 9.4 g/dL (11.5-14.8); LYMPHOCYTES # (AUTO) 1.7 /CMM (0.8-4.8); LYMPHOCYTES % (AUTO) 27.3 % (20.0-44.0); MEAN CORPUSCULAR HGB CONC 34 g/dl (31.0-36.0); MEAN CORPUSCULAR VOLUME 100 fL (82-100); MONOCYTES # (AUTO) 0.6 /CMM (0.1-1.30); MONOCYTES % (AUTO) 9.8 % (2.0-12.0); NEUTROPHILS # (AUTO) 3.8 /CMM (1.8-8.9); NEUTROPHILS % (AUTO) 59.6 % (43.0-81.0); PLATELET COUNT (AUTO) 133 /CMM (150-450); RED BLOOD CELL COUNT(AUTO) 2.79 MIL/uL (4.0-5.2); WHITE BLOOD COUNT (AUTO) 6.3 K/uL (4.3-11.0)
--- NOTE | 2019-05-07 15:33 | NUR ---
CM MADE AWARE.
[2019-05-07 15:47] LABS: CALCIUM, SERUM 7.9 mg/dL (8.5-10.1); CARBON DIOXIDE 29 mmol/L (21-32); CHLORIDE 102 mmol/L (98-107); CREATININE 5.9 mg/dL (0.6-1.3); GLUCOSE 143 mg/dL (74-106); MAGNESIUM 1.7 mg/dL (1.8-2.4); PHOSPHORUS 3.2 mg/dL (2.5-4.9); SODIUM SERUM 138 mmol/L (136-145); UREA NITROGEN, BLOOD 30 mg/dL (7-18)
[2019-05-07 16:00] VITALS: BP 112/49
--- NOTE | 2019-05-07 18:00 | NUR ---
MS RN NOTES PATIENT IS REFUSING MEDICATIONS. EXPLAINED THE CONSEQUENCES OF NOT HAVING THE MEDICATION. PATIENT REFUSED AGAIN. WAITING FOR PSYCH EVAL.
--- NOTE | 2019-05-07 19:15 | NUR ---
WILLOWER NOTES CALLED [employer] TO FOLLOW UP WITH PSYCH CONSULT. THEY INFORMED THAT DR MARINO WILL SEE THE PATIENT TOMORROW.
--- NOTE | 2019-05-07 19:20 | NUR ---
RN OPENING NOTES: PATIENT IN BED, AWAKE, AND VERBALLY RESPONSIVE. NO SOB. NO C/O PAIN AT THIS TIME. PATIENT HAS HD CATH ON (R) CHEST WALL; CLEAN AND INTACT. IV ACCESS (L) AC G20 C/D/I. PER AM SHIFT NURSE, PATIENT REFUSED MEDS DURING HER SHIFT AND BRADEN STRICKLAND AWARE. PSYCH CONSULT TO BE DONE TOMORROW BY DR. MARINO. DISCHARGE ON HOLD, AWAITING FOR PSYCH CONSULT AND URINE CULTURE. SAFETY PRECAUTIONS IMPLEMENTED. SIDE RAILS X 2 UP. HOB ELEVATED. BED LOCKED, ALARM ON, AND IN LOW POSITION. CALL LIGHT PLACED WITHIN REACH. WILL CONT. TO MONITOR.
--- NOTE | 2019-05-07 19:46 | NUR ---
MS RN NOTES PATIENT IN BED A/OX3 COMFORTABLE IN BED. NO SOB OR DISCOMFORT NOTED AT THIS TIME. PSYCH CONSULT TOMORROW WITH DR MARINO. PATIENT IS REFUSING MEDS. PER CLASS A LINEMAN MARCO A PATIENT WILL BE DISCHARGED AFTER PSYCH EVAL AND CULTURE. BED AT THE LOWEST POSITION LOCKED , CALL LIGHT WITHIN REACH. ENDORSED TO BRANCH EMPLOYMENT COORDINATOR NURSE FOR LINO.
[2019-05-07 20:00] VITALS: BP 117/63
[2019-05-07 20:59] LABS: APPEARANCE,URINE CLEAR (CLEAR); BILIRUBIN,URINE NEGATIVE (NEGATIVE); BLOOD, URINE NEGATIVE Ery/uL (NEGATIVE); COLOR,URINE YELLOW (YELLOW); KETONES,URINE NEGATIVE (NEGATIVE); LEUKOCYTE ESTERASE ,URINE SMALL (NEGATIVE); NITRITE, URINE NEGATIVE (NEGATIVE); PH,URINE 8.5 (5.0-8.0); PROTEIN,URINE 30 mg/dl (NEGATIVE); UGLUCOSE NEGATIVE (NEGATIVE); UROBILINOGEN,URINE 0.2 EU/dL (0.2)
--- NOTE | 2019-05-07 21:00 | NUR ---
RN NOTE: URINE SPECIMEN COLLECTED VIA IN AND OUT STRAIGHT CATH ORDERED BY BRADEN STRICKLAND. LAB NOTIFIED. Addendum: 05/07/19 at 2325 by FEI LÓPEZ RN 2100: EXPLAINED TO PATIENT THAT URINE SPECIMEN NEEDS TO BE COLLECTED ORDERED BY BRADEN STRICKLAND BEFORE DISCHARGE. PATIENT AGREED TO STRAIGHT CATH PROCEDURE. BILL ANGUIANO ALSO AT BEDSIDE. CHARGE NURSE AWARE.
[2019-05-07] MEDS: ATORVASTATIN 40 MG TABLET PO SCH (21:03)
--- NOTE | 2019-05-07 21:14 | NUR ---
RN NOTE: PATIENT TOOK SCHEDULED MEDICATIONS. NO EPISODES OF REFUSING MEDICATIONS/TX AT THIS TIME. WILL CONT. TO MONITOR.
[2019-05-07 23:01] LABS: BACTERIA,URINE Few /HPF (None Seen); RBC,URINE 0-2 /HPF (0-2); SQUAMOUS EPITHELIAL CELL,UR Moderate /HPF (None Seen)
[2019-05-08 04:00] VITALS: BP 121/60
--- NOTE | 2019-05-08 07:15 | NUR ---
RN CLOSING NOTES: PATIENT IN BED, ASLEEP, BUT EASILY AROUSABLE. NO SOB. NO C/O PAIN AT THIS TIME. PATIENT HAS HD CATH ON (R) CHEST WALL; CLEAN AND INTACT. DRY DRESSING IN PLACE. IV ACCESS (L) AC G20 C/D/I. URINE CULTURE RESULT STILL PENDING. PSYCH CONSULT TO BE DONE TODAY. AM SHIFT NURSE INFORMED TO CALL BRADEN STRICKLAND ONCE PSYCH CONSULT IS DONE. NO EPISODES OF REFUSING MEDICATIONS/CARE DURING SHIFT. PATIENT REMAINED COMPLIANT WITH CARE. SAFETY PRECAUTIONS IMPLEMENTED. SIDE RAILS X 2 UP. HOB ELEVATED. BED LOCKED, ALARM ON, AND IN LOW POSITION. ENDORSED TO AM SHIFT NURSE FOR CONTINUITY OF CARE.
--- NOTE | 2019-05-08 07:45 | NUR ---
MS RN OPENING NOTE RECEIVED PATIENT IN BED SLEEPING COMFORTABLY. PATIENT IN NO ACUTE DISTRESS. NO SOB NOTED. PATIENT BREATHING IS EVEN AND UNLABORED. PATIENT IV INTACT. PATIENT SAFETY PRECAUTIONS IN PLACE. PATIENT BED IS LOCKED AND IN LOWEST POSITION. CALL LIGHT WITH IN REACH. WILL CONTINUE TO MONITOR.
[2019-05-08 08:00] VITALS: BP 122/63
[2019-05-08] MEDS: SENNOSIDES 8.6 MG TABLET PO SCH ×2 (08:10→16:18)
[2019-05-08] MEDS: CARVEDILOL 6.25 MG TABLET PO SCH (08:11)
[2019-05-08] MEDS: AMLODIPINE BESYLATE 5 MG TABLET PO SCH ×2 (08:12→16:18)
[2019-05-08] MEDS: hydrALAZINE HCL 25 MG TABLET PO SCH ×3 (08:12→16:49)
[2019-05-08] MEDS: VIT B CMPLX 3/FA/VIT C/BIOTIN 1 TAB TABLET PO SCH (08:12)
[2019-05-08] MEDS: PANTOPRAZOLE 40 MG TABLET.DR PO SCH (08:12)
[2019-05-08] MEDS: DOCUSATE SODIUM 100 MG CAPSULE PO SCH ×2 (08:12→16:21)
[2019-05-08] MEDS: ASPIRIN 81 MG TAB.CHEW PO SCH (08:14)
[2019-05-08] MEDS: FERROUS SULFATE (325 MG) 325 MG/TAB TABLET PO SCH ×2 (08:14→16:18)
[2019-05-08] MEDS: CYANOCOBALAMIN 500 MCG TABLET PO SCH (08:15)
[2019-05-08] MEDS: HYDROGEL DRESSING 90 GM TUBE TP SCH (08:15)
[2019-05-08] MEDS: METOPROLOL TARTRATE 25 MG TABLET PO SCH ×2 (08:44→16:49)
--- NOTE | 2019-05-08 08:52 | NUR ---
MS RN NOTE PATIENT REFUSED METOPROLOL 0900 DOSE. EDUCATED RISKS VS BENEFITS WITH TRIBAL DELEGATE PRESENT. PATIENT CONTINUED TO REFUSE.
[2019-05-08 12:07] VITALS: BP 126/69
[2019-05-08] MEDS ORDERED: CEPH-570 PO (12:28)
[2019-05-08] MEDS ORDERED: CEPHALEXIN MONOHYDRATE 250 MG CAPSULE PO SCH ×2 (12:35→18:00)
[2019-05-08] MEDS ORDERED: DIVALPROEX SODIUM 125 MG CAP.SPRINK PO SCH (13:00)
[2019-05-08 16:00] VITALS: BP_SYST 115; BP_SYST 119; BP_DIAS 49; BP_DIAS 57
--- NOTE | 2019-05-08 16:50 | NUR ---
MS RN NOTE PATIENT REFUSED 1700 DOSE HYDRALAZINE, METOPROLOL, AND DOCUSATE. PATIENT GOT IRRITABLE AND REFUSED DESPITE RISKS VS BENEFITS EDUCATION. PATIENT CONTINUED TO REFUSE.
--- NOTE | 2019-05-08 17:03 | NUR ---
MS RN NOTE PATIENT SCHEDULED , , SAT FOR DIALYSIS. LAST RECEIVED 05/06/19. AT THIS TIME PATIENT UNDERGOING HEMODIALYSIS VERBAL ORDERS FROM DR. PUENTE TO [facility] [employer] CONSULTANT.
--- NOTE | 2019-05-08 18:35 | NUR ---
MS RN CLOSING NOTE PATIENT IN BED RESTING COMFORTABLY. PATIENT IN NO ACUTE DISTRESS. NO SOB NOTED. PATIENT BREATHING IS EVEN AND UNLABORED. PATIENT IN NO PAIN AT THIS TIME. BED ALARM IS ON. PATIENT KEPT CLEAN, DRY AND COMFORTABLE THROUGHOUT SHIFT. SAFETY PRECAUTIONS IN PLACE. PATIENT UNDERGOING HEMODIALYSIS AT THIS TIME. PATIENT TO GO TO [facility] AFTER DIALYSIS IS FINISHED. SURGICAL SUPPLIES STERILIZER TIME PER JOY AVIATION PROGRAM MANAGER IS 2030. SKIN ASSESSED, NO NEW SKIN BREAKDOWN NOTED. REPORT GIVEN TO NATALIA RANDHAWA AT [facility]. IV STILL IN PLACE AND PATENT. DC INSTRUCTIONS PROVIDED WITH CREAM RIPENER PRESENT. PATIENT VERBALIZED UNDERSTANDING AT THIS TIME. PATIENT UNABLE TO SIGN DUE HAND WEAKNESS TO WRITE. SIGNED BY TWO NURSES. BELONGINGS LIST SIGNED BY TWO NURSES AND BELONGINGS AT THE BEDSIDE. MD AWARE OF DISCHARGE. PATIENT BED IS LOCKED AND IN LOWEST POSITION. CALL LIGHT WITHIN REACH. WILL ENDORSE CARE AND DISCHARGE TO PM SHIFT FOR LINO.
--- NOTE | 2019-05-08 19:44 | NUR ---
MS RN NOTES RECEIVED PATIENT AWAKE IN BED WITH NO DISTRESS NOTED. CALL LIGHT WITHIN REACH. NO C/O PAIN OR DISCOMFORT. DIALYSIS END TIME WITH 1L REMOVED. VITALS WNL. PERIPHERAL LINE INTACT AND PATENT. ENCOURAGED USE OF CALL LIGHT FOR ASSISTANCE AND VERBALIZED GOOD UNDERSTANDING. BED IN LOW LOCK SETTING. ROOM FREE OF CLUTTER AND BELONGINGS KEPT NEAR BEDSIDE. WILL CONTINUE TO MONITOR
[2019-05-08 20:18] VITALS: BP 141/58
--- NOTE | 2019-05-08 20:45 | NUR ---
PATIENT PICKED UP BY TRANSPORTATION VIA GURNEY IN STABLE CONDITION. PATIENT AWAKE, A/O X3 WITH NO DISTRESS NOTED. NO C/O PAIN OR DISCOMFORT. VITALS WNL. RUC PERMACATH INTACT WITH STERILE DRESSINGS IN PLACE. NO SWELLING OR BLEEDING NOTED. LAC PIV REMOVED AND TOLERATED WELL. NO ACTIVE BLEEDING NOTED. [facility] ALL BELONGINGS TAKEN WITH PT.
== END 2019-05-08 20:48 | DRG 280 ==
LOC: ER 21:25 → TELE1 05-04 00:09 → MEDSG1 05-07 08:38
PROVIDERS: ADMIT Registered Nurse; ATTEND Registered Nurse
PROC: 5A1D70Z Performance of Urinary Filtration, Intermittent, Less than 6 Hours Per Day (ICD-10-PCS; principal; 2019-05-04)
DX: I13.2 Hypertensive heart and chronic kidney disease with heart failure and with stage 5 chronic kidney disease, or end stage renal disease (principal); L89.153 Pressure ulcer of sacral region, stage 3; I21.A1 Myocardial infarction type 2; N18.6 End stage renal disease; I50.33 Acute on chronic diastolic (congestive) heart failure; D68.69 Other thrombophilia; N39.0 Urinary tract infection, site not specified; F33.1 Major depressive disorder, recurrent, moderate; Z99.2 Dependence on renal dialysis; Z90.49 Acquired absence of other specified parts of digestive tract; D63.8 Anemia in other chronic diseases classified elsewhere; E21.3 Hyperparathyroidism, unspecified; I25.10 Atherosclerotic heart disease of native coronary artery without angina pectoris; K21.9 Gastro-esophageal reflux disease without esophagitis; M10.9 Gout, unspecified; I48.91 Unspecified atrial fibrillation; D72.829 Elevated white blood cell count, unspecified; D69.6 Thrombocytopenia, unspecified; E78.00 Pure hypercholesterolemia, unspecified; E78.5 Hyperlipidemia, unspecified; Z91.15 Patient's noncompliance with renal dialysis; E87.8 Other disorders of electrolyte and fluid balance, not elsewhere classified; F43.10 Post-traumatic stress disorder, unspecified; F41.0 Panic disorder [episodic paroxysmal anxiety]; F42.9 Obsessive-compulsive disorder, unspecified; F01.50 Vascular dementia, unspecified severity, without behavioral disturbance, psychotic disturbance, mood disturbance, and anxiety
CPT/HCPCS: 36415; 70450-TC; 71045-TC; 80048-TC; 80061-TC; 80076-TC; 81000-TC; 83735-TC; 83880; 84100-TC; 84484-TC; 85025-TC; 85730-TC; 86704; 86706; 87040-TC; 87081-TC; 87086-TC; 87340; 90935-TC; 93307-TC; A6248; G0378; J0360; J2270; J2405; J7030

== ENCOUNTER 2019-10-19 14:13 | Inpatient (IN) | payer MEDICARE ==
[~2019-10-19] VITALS: Ht 147.3 cm; Wt 43.5 kg
[~2019-10-19 14:13] MED LIST changes: -ALLO100T PO; -ASCO500T9 PO; -ASPI-1169 PO; +ATOR40TA PO; +CEPH-570 PO; +CYAN-51 PO; +DOCU-141 PO; -ESCI5TAB PO; +FOLI0.8T2 PO; +Hydrogel Dressing TP; -LORA0.5T PO; +MAGN400O6 PO; +METO-295 PO; +METO25TA6 PO; -ONDA4TAB5 PO; +SENN-261 PO
[2019-10-19] MEDS ORDERED: VITA1TAB20 PO (14:32)
[2019-10-19] MEDS ORDERED: CALC0.253 PO (14:32)
[2019-10-19 14:50] VITALS: BP 138/67
--- NOTE | 2019-10-19 14:50 | NUR ---
RECEIVED PATIENT FROM [facility] ADMIT. PATIENT IN STABLE CONDITION. A/OX2-3, ABLE TO MAKE NEEDS KNOWN. POLISH SPEAKING. NOT IN ANY FORM OF DISTRESS. NO SOB. DENIED PAIN OR DISCOMFORT AT THIS TIME. IV ACCESS LEFT AC #20 INTACT AND PATENT. NOTED WITH HD ACCESS IN RIGHT CHEST WALL. SKIN INTACT, BLANCHABLE REDNESS ON SACRUM. AND DISCOLORATIONS ON LEFT ARM. SITUATED PATIENT IN THE ROOM. INSTRUCTED TO USE CALL LIGHT FOR ASSISTANCE. BELONGINGS CHECKED, AND NOTED ON THE LIST. NO WALLET,CELLPHONES, OR OTHER EXPENSIVE ITEM. HOSPITAL GOWN WORN. SAFETY MEASURES IN PLACE. BED IN LOW/LOCKED POSITION. SIDERAILS UPX2, CALL LIGHT IN REACH. BED ALARM ON, SEMIFOWLERS POSITION. WILL CONT TO MONITOR ACCORDINGLY.
[2019-10-19] MEDS ORDERED: IV D5/0.45 NACL 1,000 ML IV PRN (17:11)
[2019-10-19] MEDS ORDERED: ONDANSETRON HCL/PF 4 MG/2 ML VIAL IVP PRN (17:30)
[2019-10-19] MEDS ORDERED: MAG HYDROX/AL HYDROX/SIMETH 30 ML UDC PO PRN (17:30)
[2019-10-19] MEDS ORDERED: Z GUARD REMEDY 2 OZ OINT TP PRN (17:30)
[2019-10-19] MEDS ORDERED: ZOLPIDEM TARTRATE 5 MG TABLET PO PRN (17:30)
[2019-10-19] MEDS ORDERED: ACETAMINOPHEN 325 MG TABLET PO PRN (17:30)
[2019-10-19] MEDS ORDERED: HYDROCODONE/APAP 5/325MG 1 EACH TABLET PO PRN (17:30)
[2019-10-19] MEDS ORDERED: MAGNESIUM HYDROXIDE 30 ML UDC PO PRN (17:30)
--- NOTE | 2019-10-19 17:52 | NUR ---
refused mrsa swab. saying "NO, no, no!"
--- NOTE | 2019-10-19 18:30 | NUR ---
refused blood draw. explained risk and benefits still refused. saying "NO no no!..". will notify
--- NOTE | 2019-10-19 19:10 | NUR ---
PATIENT IN STABLE CONDITION. ALL NEEDS ATTENDED AND PROVIDED. SAFETY MEASURES IN PLACE. BED IN LOW/LOCKED PSOTIION, SIDERAILS UPX2, CALL LIGHT IN REACH. BED ALARM ON. ENDORSED TO NIGHT RN FOR LINO.
--- NOTE | 2019-10-19 19:25 | NUR ---
TIRE REPAIRMAN OPENING NOTES RECEIVED PATIENT FROM MORNING SHIFT ALERT AND ORIENTED X 2. VERBALLY RESPONSIVE SYRIAC SPEAKING. BREATHING REGULAR AND UNLABORED ON ROOM AIR. RIGHT AC G20 IV LINE INTACT AND PATENT, FLUSHING WELL WITH NO BLEEDING OR S/S OF INFILTRATION NOTED. ON CARDIAC MONITORING WITH SINUS BRADYCARDIA AT 58bpm. RIGHT CHEST HD CATH INTACT WITH CLEAN AND DRY DRESSING. NO BLEEDING OBSERVED. ADVISED ON NOTHING BY MOUTH. NO S/S OF PAIN/DISCOMFORT SEEN AT THIS TIME. BED LOW AND LOCKED ON SEMI FOWLERS POSITION. CALL LIGHT IN REACH. WILL CONTINUE TO MONITOR.
[2019-10-19 20:00] VITALS: BP 144/74
[2019-10-19 20:54] VITALS: BP 144/74
--- NOTE | 2019-10-19 21:30 | NUR ---
ENTRY LEVEL MARKETING ASSISTANT NOTES CALLED [facility] FOR ANY INFORMATION ABOUT PATIENT'S FARE COLLECTOR PER LICENSED NURSE THE PATIENT IS SELF RESPONSIBLE. ASKED JEROME RANDHAWA FOR CZECH TRANSLATION TO GET CONSENT. PATIENT SIGNED CONSENT FOR EGD, ANESTHESIA AND BLOOD TRANSFUSION.
[2019-10-20] VITALS (7 sets, daily range): BP systolic 124–158; BP diastolic 67–78
--- NOTE | 2019-10-20 | NUR ---
TOPPIECE CUTTER NOTES PATIENT REFUSED BLOOD DRAW FOR THE SECOND TIME. ALSO REFUSED VITAL SIGNS TAKING AT 0000. RISK AND BENEFITS EXPLAINED.
--- NOTE | 2019-10-20 04:00 | NUR ---
EPIC PRELUDE ANALYST NOTES REFUSED VITAL SIGNS TAKING AND IV INFUSION. RISK AND BENEFITS EXPLAINED. BRADEN URBANO MADE AWARE.
--- NOTE | 2019-10-20 06:20 | NUR ---
APPLICATION OPERATIONS ENGINEER CLOSING NOTES PATIENT IN BED ALERT AND ORIENTED X 2-3 ZAMBIAN SPEAKING. AFEBRILE WITH NO S/S OF DISTRESS OBSERVED. RIGHT AC G20 IV LINE PATENT AND FLUSHING WELL. MAINTAINED ON CARDIAC MONITORING WITH NORMAL SINUS RHYTHM AT 77bpm. MAINTAINED ON NOTHING BY MOUTH. NO S/S OF PAIN/DISCOMFORT SEEN AT THIS TIME. BED LOW AND LOCKED ON SEMI FOWLERS POSITION. CALL LIGHT IN REACH. WILL ENDORSE TO MORNING SHIFT FOR LINO.
--- NOTE | 2019-10-20 06:20 | NUR ---
DIRT BIKE RACER NOTES SPOKE TO PATIENT AND AGREED TO HAVE BLOOD DRAW FOR LABS.
[2019-10-20 07:02] LABS: BASOPHILS # (AUTO) 0.1 /CMM (0.0-0.2); BASOPHILS % (AUTO) 1.3 % (0.0-2.0); EOSINOPHILS % (AUTO) 3.2 % (0.0-6.0); HEMATOCRIT 35 % (33-45); HEMOGLOBIN 11.6 g/dL (11.5-14.8); LYMPHOCYTES # (AUTO) 2.2 /CMM (0.8-4.8); LYMPHOCYTES % (AUTO) 34.9 % (20.0-44.0); MEAN CORPUSCULAR HGB CONC 33 g/dl (31.0-36.0); MEAN CORPUSCULAR VOLUME 95 fL (82-100); MONOCYTES # (AUTO) 0.5 /CMM (0.1-1.30); MONOCYTES % (AUTO) 8.2 % (2.0-12.0); NEUTROPHILS # (AUTO) 3.3 /CMM (1.8-8.9); NEUTROPHILS % (AUTO) 52.4 % (43.0-81.0); PLATELET COUNT (AUTO) 173 /CMM (150-450); RED BLOOD CELL COUNT(AUTO) 3.63 MIL/uL (4.0-5.2); WHITE BLOOD COUNT (AUTO) 6.3 K/uL (4.3-11.0)
[2019-10-20 07:22] LABS: CALCIUM, SERUM 8.6 mg/dL (8.5-10.1); CARBON DIOXIDE 22 mmol/L (21-32); CHLORIDE 106 mmol/L (98-107); GLUCOSE 128 mg/dL (74-106); PHOSPHORUS 4.5 mg/dL (2.5-4.9); POTASSIUM 4.1 mmol/L (3.5-5.1); SODIUM SERUM 141 mmol/L (136-145); UREA NITROGEN, BLOOD 24 mg/dL (7-18)
[2019-10-20 07:28] LABS: THYROID STIMULATING HORMONE 1.698 uIU/mL (0.358-3.74)
--- NOTE | 2019-10-20 07:45 | NUR ---
Tele/RN - Assessment Patient is awake, A/O x 2-3, tele shows SR, denies chest or abdominal pain at this time, no active bleeding, no apparent distress, stable on room air, currently NPO except meds, scheduled for EGD today, consent signed. IVF D5 1/2 NS at 75 ml/hr infusing well on the RAC with no signs of infiltration. Morning labs reviewed, no critical results, hgb/hct improved. Fall and aspiration precautions maintained. Patient educated on plan of care. Will continue with current medical management.
[2019-10-20] MEDS: PANTOPRAZOLE 40 MG VIAL IV SCH (08:19)
--- NOTE | 2019-10-20 10:48 | NUR ---
WOUND CARE CONSULT: PT PRESENTS WITH SACRAL SCARRING, PRESENT ON ADMISSION. RECOMMENDATIONS MADE FOR SKIN PROTCTION. DISCUSSED WITH NURSING STAFF. WILL SEE PRN. CRAIG IN AGREEMENT WITH PLAN OF CARE. CURRENT TEDDY SCORE IS 14. Addendum: 10/20/19 at 1049 by HANNAH REYES WNDNU Amended: Links added.
[2019-10-20] MEDS: CEFTRIAXONE 1 G in IV D5W 50 ML IV SCH (10:55)
[2019-10-20] MEDS ORDERED: hydrALAZINE HCL 25 MG TABLET PO SCH (13:00)
[2019-10-20] MEDS ORDERED: METOCLOPRAMIDE HCL 10 MG TABLET PO PRN (13:00)
--- NOTE | 2019-10-20 13:00 | NUR ---
Tele/RN - Notes Patient was sent to OR for EGD under the care of Dr. Rasheed, pre-op checklist completed, procedure consent in the chart. Endorsed accordingly.
[2019-10-20] MEDS ORDERED: SUCCINYLCHOLINE CHLORIDE 20 MG/ML VIAL ONE (13:12)
--- NOTE | 2019-10-20 14:50 | NUR ---
Tele/RN - Notes Patient came back from EGD in no acute distress, denies pain, A/O x 3. EGD result showed hiatal hernia, esophageal ulceration, no active bleeding. Will continue to monitor closely.
--- NOTE | 2019-10-20 15:10 | NUR ---
Tele/RN - MD Order Dr. Sweeney with order to resume medications and to start on cardiac diet.
[2019-10-20] MEDS: AMLODIPINE BESYLATE 10 MG TABLET PO SCH (15:21)
[2019-10-20] MEDS: FERROUS SULFATE (325 MG) 325 MG/TAB TABLET PO SCH (16:45)
[2019-10-20] MEDS ORDERED: METOPROLOL TARTRATE 25 MG TABLET PO SCH (17:00)
[2019-10-20] MEDS ORDERED: AMLODIPINE BESYLATE 5 MG TABLET PO SCH (17:00)
--- NOTE | 2019-10-20 18:12 | NUR ---
Tele/RN - End of shift summary Patient is A/O x 3, SR on the monitor, denies pain, no SOB, stable on room air, no active bleeding this shift, tolerated dinner well. Saline lock on the RAC is patent, flushing well. All needs attended. Will continue with current medical management.
--- NOTE | 2019-10-20 19:30 | NUR ---
DIRECTOR OF GIFT PLANNING NOTES RECEIVED ON BED A/O X2-3,BREATHING REGULAR,NOT IN ANY FORM OF DISTRESS.SALINE LOCK RIGHT AC INTACT AND PATENT,WITH RIGHT CHEST WALL PERMA CATH FOR HD ACCESS.WILL HAVE HD TREATMENT TOMORROW MORNING PER REPORT.FALL RISK,BED ALARM TRIGGERED.BED ON LOWEST POSITION AND LOCKED.CALL LIGHT IN REACH,NEEDS ANTICIPATED.
[2019-10-20] MEDS: hydrALAZINE HCL 50 MG TABLET PO SCH (21:52)
[2019-10-20] MEDS: METOPROLOL TARTRATE 50 MG TABLET PO SCH (21:52)
[2019-10-20] MEDS: ATORVASTATIN 40 MG TABLET PO SCH (21:52)
[2019-10-21] VITALS: BP 132/68
[2019-10-21] MEDS: hydrALAZINE HCL 50 MG TABLET PO SCH ×3 (05:00→20:25)
[2019-10-21 06:28] LABS: BASOPHILS # (AUTO) 0.1 /CMM (0.0-0.2); BASOPHILS % (AUTO) 0.9 % (0.0-2.0); EOSINOPHILS % (AUTO) 2.9 % (0.0-6.0); HEMATOCRIT 33 % (33-45); LYMPHOCYTES # (AUTO) 1.9 /CMM (0.8-4.8); LYMPHOCYTES % (AUTO) 24.5 % (20.0-44.0); MEAN CORPUSCULAR HGB CONC 33 g/dl (31.0-36.0); MEAN CORPUSCULAR VOLUME 96 fL (82-100); MONOCYTES # (AUTO) 0.7 /CMM (0.1-1.30); MONOCYTES % (AUTO) 8.7 % (2.0-12.0); NEUTROPHILS # (AUTO) 4.8 /CMM (1.8-8.9); PLATELET COUNT (AUTO) 157 /CMM (150-450); RED BLOOD CELL COUNT(AUTO) 3.42 MIL/uL (4.0-5.2); WHITE BLOOD COUNT (AUTO) 7.6 K/uL (4.3-11.0)
[2019-10-21 06:32] LABS: CALCIUM, SERUM 8.3 mg/dL (8.5-10.1); CARBON DIOXIDE 21 mmol/L (21-32); CHLORIDE 109 mmol/L (98-107); CREATININE 5.1 mg/dL (0.6-1.3); GLUCOSE 92 mg/dL (74-106); MAGNESIUM 1.7 mg/dL (1.8-2.4); POTASSIUM 4.2 mmol/L (3.5-5.1); SODIUM SERUM 143 mmol/L (136-145); UREA NITROGEN, BLOOD 28 mg/dL (7-18)
--- NOTE | 2019-10-21 06:38 | NUR ---
STRUCTURAL RIGGER NOTES ON BED AWAKE,ALERT,ORIENTED X2,SLEPT WITH INTERVALS.NO PAIN,FOR HEMODIALYSIS TREATMENT TODAY,CONSENT SIGNED BY PATIENT.HD RN AT BEDSIDE.IN NO ACUTE DISTRESS.
--- NOTE | 2019-10-21 07:54 | NUR ---
Tele/RN - Assessment Patient is awake, A/O x 2-3, tele shows SR, denies chest or abdominal pain at this time, no active bleeding, no apparent distress, stable on room air, HD treatment ongoing. Saline lock on the RAC with no signs of infiltration. Morning labs reviewed, no critical results, magnesium 1.7, will notify MD to order replacement. Fall and aspiration precautions maintained. Patient educated on plan of care. Will continue with current medical management.
[2019-10-21 08:00] VITALS: BP 124/42
--- NOTE | 2019-10-21 08:30 | NUR ---
Tele/RN - HD treatment HD treatment completed, total fluid removed was one liter per HD, RN. Patient tolerated it well.
[2019-10-21] MEDS: FERROUS SULFATE (325 MG) 325 MG/TAB TABLET PO SCH ×2 (08:33→16:15)
[2019-10-21] MEDS: VIT B CMPLX 3/FA/VIT C/BIOTIN 1 TAB TABLET PO SCH (08:33)
[2019-10-21] MEDS: PANTOPRAZOLE 40 MG VIAL IV SCH (08:33)
[2019-10-21] MEDS: CALCITRIOL 0.25 MCG CAPSULE PO SCH (08:33)
[2019-10-21] MEDS: METOPROLOL TARTRATE 50 MG TABLET PO SCH ×2 (08:33→20:26)
[2019-10-21] MEDS: VITAMIN B COMP W-C 1 TAB TABLET PO SCH (08:33)
[2019-10-21] MEDS: AMLODIPINE BESYLATE 10 MG TABLET PO SCH (08:34)
[2019-10-21] MEDS ORDERED: Medication Not On Formulary EA (Folic Acid/Vitamin B Comp W-C (Nephro-Vite Tablet) 0.8 M PO SCH (09:00)
[2019-10-21] MEDS ORDERED: [UNRECOGNIZED DRUG - SUPPLY] TP SCH (09:00)
--- NOTE | 2019-10-21 11:00 | NUR ---
MS/RN - Notes DC telemetry and transfer to med-surg with same orders.
[2019-10-21] MEDS: CEFTRIAXONE 1 G in IV D5W 50 ML IV SCH (11:23)
--- NOTE | 2019-10-21 13:06 | NUR ---
MS/RN - Covid-19 specimen Covid-19 specimen collected and sent to the lab.
[2019-10-21] MEDS ORDERED: NEPRO VAN 237 ML CAN PO PRN (17:30)
--- NOTE | 2019-10-21 18:31 | NUR ---
MS/RN - End of shift summary Patient is A/O x 2-3, denies pain, no SOB, stable on room air, no active bleeding this shift. Saline lock on the RAC is patent and flushing well. Covid result was negative. Anticipate dc to SNF tomorrow if stable overnight. Will continue with current medical management.
--- NOTE | 2019-10-21 19:05 | NUR ---
MS RN NOTES RECEIVED PT IN BED AWAKE AND ABLE TO MAKE NEEDS KNOWN. PT A/O X2-3 TAJIK SPEAKING. RESPIRATIONS EVEN AND UNLABORED WITH NO S/S OF ACUTE DISTRESS OR SOB NOTED. NO COMPLAINTS OF PAIN AT THIS TIME. PT NOTED WITH RAC #20G PATENT AND INTACT AND SL. PT ALSO NOTED WITH RCHESTWALL PERMACATH. SAFETY MEASURES IN PLACE WITH BED IN LOWEST LOCKED POSITION WITH SIDE RAILS UP X2. CALL LIGHT WITHIN REACH. WILL CONTINUE TO MONITOR.
[2019-10-21 20:11] VITALS: BP 113/50
[2019-10-21] MEDS: ATORVASTATIN 40 MG TABLET PO SCH (22:00)
[2019-10-22] MEDS: hydrALAZINE HCL 50 MG TABLET PO SCH ×3 (04:07→20:28)
--- NOTE | 2019-10-22 06:00 | NUR ---
MS RN NOTES PT REFUSED AM LABS AT THIS TIME. [facility] WILL SEND ANOTHER PERSON TO DRAW LABS AFTER BREAKFAST. WILL CONTINUE TO MONITOR.
--- NOTE | 2019-10-22 06:53 | NUR ---
MS RN NOTES PT IN BED AWAKE AND ABLE TO MAKE NEEDS KNOWN. PT A/O X2-3 COOK ISLANDER SPEAKING. RESPIRATIONS EVEN AND UNLABORED WITH NO S/S OF ACUTE DISTRESS OR SOB NOTED THROUGHOUT SHIFT. PT KEPT CLEAN, DRY, AND COMFORTABLE. NO COMPLAINTS OF PAIN AT THIS TIME. PT NOTED WITH RAC #20G PATENT AND INTACT AND SL. PT ALSO NOTED WITH RCHESTWALL PERMACATH. SAFETY MEASURES IN PLACE WITH BED IN LOWEST LOCKED POSITION WITH SIDE RAILS UP X2. CALL LIGHT WITHIN REACH. WILL ENDORSE TO ONCOMING NURSE FOR LINO.
--- NOTE | 2019-10-22 07:38 | NUR ---
MS RN NOTES PATIENT IN BED SLEEPING NO SOB OR ACUTE DISTRESS NOTED. SAFETY MEASURES IN PLACE WILL CONTINUE TO MONITOR.
[2019-10-22 08:00] VITALS: BP 144/69
[2019-10-22] MEDS: FERROUS SULFATE (325 MG) 325 MG/TAB TABLET PO SCH ×2 (08:38→16:46)
[2019-10-22] MEDS: CALCITRIOL 0.25 MCG CAPSULE PO SCH (08:38)
[2019-10-22] MEDS: PANTOPRAZOLE 40 MG VIAL IV SCH (08:38)
[2019-10-22] MEDS: VIT B CMPLX 3/FA/VIT C/BIOTIN 1 TAB TABLET PO SCH (08:40)
[2019-10-22] MEDS: AMLODIPINE BESYLATE 10 MG TABLET PO SCH (08:40)
[2019-10-22] MEDS: VITAMIN B COMP W-C 1 TAB TABLET PO SCH (08:41)
[2019-10-22] MEDS: METOPROLOL TARTRATE 50 MG TABLET PO SCH ×2 (08:41→20:28)
[2019-10-22 09:21] LABS: BASOPHILS % (AUTO) 0.4 % (0.0-2.0); HEMATOCRIT 34 % (33-45); HEMOGLOBIN 11.3 g/dL (11.5-14.8); LYMPHOCYTES # (AUTO) 2.4 /CMM (0.8-4.8); LYMPHOCYTES % (AUTO) 38.4 % (20.0-44.0); MEAN CORPUSCULAR HGB CONC 33 g/dl (31.0-36.0); MEAN CORPUSCULAR VOLUME 97 fL (82-100); MONOCYTES # (AUTO) 0.6 /CMM (0.1-1.30); MONOCYTES % (AUTO) 9.3 % (2.0-12.0); NEUTROPHILS # (AUTO) 3.1 /CMM (1.8-8.9); NEUTROPHILS % (AUTO) 48.9 % (43.0-81.0); PLATELET COUNT (AUTO) 124 /CMM (150-450); RED BLOOD CELL COUNT(AUTO) 3.55 MIL/uL (4.0-5.2); WHITE BLOOD COUNT (AUTO) 6.3 K/uL (4.3-11.0)
[2019-10-22 09:22] LABS: CALCIUM, SERUM 8.5 mg/dL (8.5-10.1); CARBON DIOXIDE 24 mmol/L (21-32); CHLORIDE 104 mmol/L (98-107); CREATININE 4.7 mg/dL (0.6-1.3); GLUCOSE 131 mg/dL (74-106); MAGNESIUM 1.8 mg/dL (1.8-2.4); PHOSPHORUS 3.8 mg/dL (2.5-4.9); POTASSIUM 3.1 mmol/L (3.5-5.1); SODIUM SERUM 139 mmol/L (136-145); UREA NITROGEN, BLOOD 28 mg/dL (7-18)
[2019-10-22] MEDS: CEFTRIAXONE 1 G in IV D5W 50 ML IV SCH (11:20)
[2019-10-22 15:59] VITALS: BP 115/51
--- NOTE | 2019-10-22 18:47 | NUR ---
MS RN NOTES PATIENT IN BED RESTING NO SOB OR ACUTE DISTRESS NOTED. PATIENT ALERT, ORIENTED X 3. ALL DUE MEDICATIONS ADMINISTERED. ALL NEEDS MET. NO ACUTE CHANGES NOTED DURING SHIFT. WILL ENDORSE CARE TO PM SHIFT.
--- NOTE | 2019-10-22 19:05 | NUR ---
MS RN NOTES RECEIVED PT IN BED AWAKE AND ABLE TO MAKE NEEDS KNOWN. PT A/O X2-3 LUXEMBOURGISH SPEAKING. RESPIRATIONS EVEN AND UNLABORED WITH NO S/S OF ACUTE DISTRESS OR SOB NOTED. NO COMPLAINTS OF PAIN AT THIS TIME. PT NOTED WITH RAC #20G PATENT AND INTACT AND SL. PT ALSO NOTED WITH RCHESTWALL PERMACATH. SAFETY MEASURES IN PLACE WITH BED IN LOWEST LOCKED POSITION WITH SIDE RAILS UP X2. CALL LIGHT WITHIN REACH. WILL CONTINUE TO MONITOR.
[2019-10-22 20:38] VITALS: BP 113/64
[2019-10-22] MEDS: ATORVASTATIN 40 MG TABLET PO SCH (21:14)
[2019-10-23] MEDS: hydrALAZINE HCL 50 MG TABLET PO SCH ×3 (05:00→21:22)
--- NOTE | 2019-10-23 07:37 | NUR ---
MS RN NOTES PT IN BED AWAKE AND ABLE TO MAKE NEEDS KNOWN. PT A/O X2-3 CITIZEN OF [place] SPEAKING. RESPIRATIONS EVEN AND UNLABORED WITH NO S/S OF ACUTE DISTRESS OR SOB NOTED THROUGHOUT SHIFT. PT KEPT CLEAN, DRY, AND COMFORTABLE. NO COMPLAINTS OF PAIN AT THIS TIME. PT NOTED WITH RAC #20G PATENT AND INTACT AND SL. PT ALSO NOTED WITH RCHESTWALL PERMACATH. SAFETY MEASURES IN PLACE WITH BED IN LOWEST LOCKED POSITION WITH SIDE RAILS UP X2. CALL LIGHT WITHIN REACH. WILL ENDORSE TO ONCOMING NURSE FOR LINO.
[2019-10-23 07:45] VITALS: BP 130/58
--- NOTE | 2019-10-23 08:00 | NUR ---
MS RN NOTES PT IN BED AWAKE AND ABLE TO MAKE NEEDS KNOWN. PT A/O X2-3 AUSTRIAN SPEAKING. RESPIRATIONS EVEN AND UNLABORED WITH NO S/S OF ACUTE DISTRESS OR SOB NOTED -ON ROOM AIR. PT KEPT CLEAN, DRY, AND COMFORTABLE. NO COMPLAINTS OF PAIN AT THIS TIME. WITH RAC #20G PATENT AND INTACT AND SL. PT ALSO NOTED WITH RT CHESTWALL PERMACATH. SAFETY MEASURES IN PLACE WITH BED IN LOWEST LOCKED POSITION WITH SIDE RAILS UP X2. CALL LIGHT WITHIN REACH.
[2019-10-23 08:25] LABS: BASOPHILS # (AUTO) 0.1 /CMM (0.0-0.2); BASOPHILS % (AUTO) 0.9 % (0.0-2.0); EOSINOPHILS % (AUTO) 3.6 % (0.0-6.0); HEMATOCRIT 34 % (33-45); LYMPHOCYTES # (AUTO) 2.5 /CMM (0.8-4.8); LYMPHOCYTES % (AUTO) 34.4 % (20.0-44.0); MEAN CORPUSCULAR HGB CONC 33 g/dl (31.0-36.0); MEAN CORPUSCULAR VOLUME 98 fL (82-100); MONOCYTES # (AUTO) 0.6 /CMM (0.1-1.30); NEUTROPHILS # (AUTO) 3.7 /CMM (1.8-8.9); NEUTROPHILS % (AUTO) 52.1 % (43.0-81.0); PLATELET COUNT (AUTO) 120 /CMM (150-450); RED BLOOD CELL COUNT(AUTO) 3.43 MIL/uL (4.0-5.2); WHITE BLOOD COUNT (AUTO) 7.2 K/uL (4.3-11.0)
[2019-10-23] MEDS: VIT B CMPLX 3/FA/VIT C/BIOTIN 1 TAB TABLET PO SCH (08:43)
[2019-10-23] MEDS: CALCITRIOL 0.25 MCG CAPSULE PO SCH (08:43)
[2019-10-23] MEDS: FERROUS SULFATE (325 MG) 325 MG/TAB TABLET PO SCH ×2 (08:43→16:33)
[2019-10-23] MEDS: VITAMIN B COMP W-C 1 TAB TABLET PO SCH (08:43)
[2019-10-23] MEDS: AMLODIPINE BESYLATE 10 MG TABLET PO SCH (08:43)
[2019-10-23] MEDS: PANTOPRAZOLE 40 MG VIAL IV SCH (08:43)
[2019-10-23] MEDS: METOPROLOL TARTRATE 50 MG TABLET PO SCH ×2 (08:44→21:23)
[2019-10-23 08:49] LABS: CALCIUM, SERUM 8.3 mg/dL (8.5-10.1); CARBON DIOXIDE 24 mmol/L (21-32); CHLORIDE 103 mmol/L (98-107); CREATININE 5.8 mg/dL (0.6-1.3); GLUCOSE 85 mg/dL (74-106); MAGNESIUM 1.9 mg/dL (1.8-2.4); PHOSPHORUS 4.9 mg/dL (2.5-4.9); POTASSIUM 3.6 mmol/L (3.5-5.1); SODIUM SERUM 137 mmol/L (136-145); UREA NITROGEN, BLOOD 40 mg/dL (7-18)
[2019-10-23] MEDS: CEFTRIAXONE 1 G in IV D5W 50 ML IV SCH (10:00)
--- NOTE | 2019-10-23 13:20 | NUR ---
HELD HYDRALAZINE AT THIS TIME,PT IS GOING TO HAVE DIALYSIS TODAY.
--- NOTE | 2019-10-23 13:30 | NUR ---
PT IS UNDERGOING HEMODIALYSIS PROCEDURE AT THIS TIME
[2019-10-23] MEDS ORDERED: ALBUMIN 25% 25 GM in PREMIX 1 EA IV PRN (14:00)
[2019-10-23 15:47] VITALS: BP 90/36
--- NOTE | 2019-10-23 16:22 | NUR ---
Hemodialysis procedure completed with no output. BP 90/36 HR 74. Pt is comfortably resting denying any pain or distress. Held BP med. Will monitor.
--- NOTE | 2019-10-23 18:08 | NUR ---
PT COMFORTABLY SLEEPING IN BED BUT AROUSABLE.DENIES ANY PAIN OR DISTRESS. CALL LIGHT PLACED WITHIN REACH.
[2019-10-23 20:00] VITALS: BP 135/63
[2019-10-23 20:25] VITALS: BP 135/63
--- NOTE | 2019-10-23 20:31 | NUR ---
RN NOTES RECEIVED PATIENT IN BED, ALERT AND ORIENTED X2, MACEDONIAN SPEAKING ONLY, ROOM AIR, DENIES PAIN AT THIS TIME, NOT IN APPARENT DISTRESS, WILL CONTINUE TO MONITOR, CALL LIGHT WITHIN REACH
[2019-10-23] MEDS: ATORVASTATIN 40 MG TABLET PO SCH (21:22)
[2019-10-24] MEDS: hydrALAZINE HCL 50 MG TABLET PO SCH ×3 (04:22→20:29)
--- NOTE | 2019-10-24 06:22 | NUR ---
RN NOTES ALERT AND ORIENTED X1, BULGARIAN SPEAKING ONLY, ANXIOUS AT TIMES, OLIGURIC, ESRD ON HD, SACRAL REDNESS, CONTINUE OFFLOADING, TURNING AND REPOSITIONING, NOT COMPLIANT WITH MEDICATION, SCD, NO BLOOD THINNER, HISTORY OF ANEMIA, LIKELY TO HAVE GI BLEED, WITH EPISODE OF COFFEE-GROUND EMESIS, S/P EGD, MONITOR H/H, KEPT SAFE, WILL CONTINUE TO MONITOR.
--- NOTE | 2019-10-24 07:00 | NUR ---
MS RN OPENING NOTES RECEIVED PATIENT AWAKE IN BED AT THIS TIME. AOX1-2. ESTONIAN SPEAKING. NO SOB NOTED, NO S/S OF ANY ACUTE DISTRESS NOTED, NO C/O PAIN AT THIS TIME. RESPIRATIONS EVEN AND UNLABORED WITH EQUAL RISE AND FALL IN CHEST. PT NOTED WITH RCW PERMA CATH. IV ACCESS ON RAC G#20, HL, INTACT, PATENT AND FLUSHING WELL. ASPIRATION AND SAFETY PRECAUTIONS IN PLACE. BED IN LOWEST LOCKED POSITION, SIDE RAILS UP, HEAD OF BED ELEVATED TO SEMI FOWLERS POSITION, CALL LIGHT WITHIN REACH. WILL CONTINUE TO MONITOR
[2019-10-24 08:00] VITALS: BP 138/49
[2019-10-24] MEDS: CALCITRIOL 0.25 MCG CAPSULE PO SCH (09:08)
[2019-10-24] MEDS: VITAMIN B COMP W-C 1 TAB TABLET PO SCH (09:08)
[2019-10-24] MEDS: VIT B CMPLX 3/FA/VIT C/BIOTIN 1 TAB TABLET PO SCH (09:08)
[2019-10-24] MEDS: METOPROLOL TARTRATE 50 MG TABLET PO SCH ×2 (09:09→20:30)
[2019-10-24] MEDS: FERROUS SULFATE (325 MG) 325 MG/TAB TABLET PO SCH ×2 (09:09→16:27)
[2019-10-24] MEDS: AMLODIPINE BESYLATE 10 MG TABLET PO SCH (09:10)
[2019-10-24] MEDS: PANTOPRAZOLE 40 MG VIAL IV SCH (09:10)
[2019-10-24 09:26] VITALS: BP 126/65
[2019-10-24] MEDS: CEFTRIAXONE 1 G in IV D5W 50 ML IV SCH (10:14)
[2019-10-24 10:39] LABS: BASOPHILS % (AUTO) 0.7 % (0.0-2.0); EOSINOPHILS % (AUTO) 2.4 % (0.0-6.0); HEMATOCRIT 32 % (33-45); HEMOGLOBIN 10.5 g/dL (11.5-14.8); LYMPHOCYTES # (AUTO) 1.6 /CMM (0.8-4.8); LYMPHOCYTES % (AUTO) 23.4 % (20.0-44.0); MEAN CORPUSCULAR HGB CONC 33 g/dl (31.0-36.0); MEAN CORPUSCULAR VOLUME 97 fL (82-100); MONOCYTES # (AUTO) 0.7 /CMM (0.1-1.30); NEUTROPHILS # (AUTO) 4.2 /CMM (1.8-8.9); NEUTROPHILS % (AUTO) 63.5 % (43.0-81.0); PLATELET COUNT (AUTO) 105 /CMM (150-450); WHITE BLOOD COUNT (AUTO) 6.7 K/uL (4.3-11.0)
[2019-10-24 10:49] LABS: CALCIUM, SERUM 8.8 mg/dL (8.5-10.1); CARBON DIOXIDE 25 mmol/L (21-32); CHLORIDE 109 mmol/L (98-107); CREATININE 3.9 mg/dL (0.6-1.3); GLUCOSE 106 mg/dL (74-106); MAGNESIUM 1.9 mg/dL (1.8-2.4); PHOSPHORUS 2.4 mg/dL (2.5-4.9); POTASSIUM 3.7 mmol/L (3.5-5.1); SODIUM SERUM 143 mmol/L (136-145); UREA NITROGEN, BLOOD 23 mg/dL (7-18)
[2019-10-24] MEDS ORDERED: K PHOS NEUTRAL 250 MG TABLET PO ONE (15:30)
[2019-10-24 16:00] VITALS: BP 115/58
--- NOTE | 2019-10-24 19:36 | NUR ---
MS RN CLOSING NOTES PT AWAKE IN BED AT THIS TIME. PT REMAINED STABLE THROUGHOUT SHIFT. ALL CARE, NEEDS, TREATMENT, MEDICATIONS ADMINISTERED ANTICIPATED PER SCHEDULE. PT KEPT CLEAN AND DRY. SAFETY PRECAUTIONS IN PLACE, BED IN LOWEST LOCKED POSITION, HOB ELEVATED TO SEMI FOWLERS POSITION, SIDE RAILS UP, CALL LIGHT WITHIN REACH, WILL ENDORSE TO PATIENT ACCESS REPRESENTATIVE NURSE FOR LINO.
--- NOTE | 2019-10-24 19:44 | NUR ---
MS EDIS OPEN NOTES PATIENT IS AWAKE, EATING IN BED. ON RA, NO SOB/ ACUTE RESPIRATORY DISTRESS NOTED. IV ON R AC IS PATENT AND INTACT. APPEARS COMFORTABLE/ NO COMPLAINTS OF PAIN AT THE MOMENT. BED IS IN LOWEST LOCKED POSITION WITH SIDE RAILS UP X3, SEMI FOWLERS. CALL LIGHT IS WITHIN REACH. WILL CONTINUE TO MONITOR
[2019-10-24 20:00] VITALS: BP 127/63
[2019-10-24] MEDS: ATORVASTATIN 40 MG TABLET PO SCH (21:41)
[2019-10-25] MEDS: hydrALAZINE HCL 50 MG TABLET PO SCH ×2 (04:25→13:01)
--- NOTE | 2019-10-25 06:36 | NUR ---
MS RN CLOSE NOTES PATIENT IS LAYING IN BED. A/O X1. ON RA, NO SOB/ ACUTE RESPIRATORY DISTRESS NOTED. IV IN R AC #20G IS PATENT AND INTACT. APPEARS COMFORTABLE/ NO COMPLAINTS OF PAIN AT THE MOMENT. BED IS IN LOWEST LOCKED POSITION WITH SIDE RAILS UP X3, SEMI FOWLERS. CALL LIGHT IS WITHIN REACH. WILL ENDORSE TO AM NURSE.
--- NOTE | 2019-10-25 07:03 | NUR ---
MS RN OPENING NOTES RECEIVED PATIENT AWAKE IN BED AT THIS TIME. AOX1-2. GERMAN SPEAKING. NO SOB NOTED, NO S/S OF ANY ACUTE DISTRESS NOTED, NO C/O PAIN AT THIS TIME. RESPIRATIONS EVEN AND UNLABORED ON RA. PT NOTED WITH RCW PERMA CATH. IV ACCESS ON RAC G#20, HL, INTACT, PATENT AND FLUSHING WELL. ASPIRATION AND SAFETY PRECAUTIONS IN PLACE. BED IN LOWEST LOCKED POSITION, SIDE RAILS UP, HEAD OF BED ELEVATED TO SEMI FOWLERS POSITION, CALL LIGHT WITHIN REACH. WILL CONTINUE TO MONITOR
[2019-10-25 08:00] VITALS: BP 128/56
[2019-10-25] MEDS: PANTOPRAZOLE 40 MG VIAL IV SCH (09:04)
[2019-10-25] MEDS: CALCITRIOL 0.25 MCG CAPSULE PO SCH (09:05)
[2019-10-25] MEDS: AMLODIPINE BESYLATE 10 MG TABLET PO SCH (09:05)
[2019-10-25] MEDS: FERROUS SULFATE (325 MG) 325 MG/TAB TABLET PO SCH ×2 (09:05→17:18)
[2019-10-25] MEDS: VITAMIN B COMP W-C 1 TAB TABLET PO SCH (09:05)
[2019-10-25] MEDS: METOPROLOL TARTRATE 50 MG TABLET PO SCH (09:06)
[2019-10-25] MEDS: VIT B CMPLX 3/FA/VIT C/BIOTIN 1 TAB TABLET PO SCH (09:08)
[2019-10-25] MEDS: CEFTRIAXONE 1 G in IV D5W 50 ML IV SCH (10:11)
--- NOTE | 2019-10-25 11:18 | NUR ---
PER DR ALVARADO REQUEST, AUTHORIZATION FOR USE OR DISCLOSURE OF HEALTH CARE INFORMATION WAS FAXED TO [facility] (FAX: [phone]) AT THIS TIME. ORDERS CARRIED OUR. WILL CONTINUE TO MONITOR
[2019-10-25 16:00] VITALS: BP 160/61
--- NOTE | 2019-10-25 18:00 | NUR ---
MS RN CLOSING NOTES PT AWAKE IN BED AT THIS TIME. PT REMAINED STABLE THROUGHOUT SHIFT. ALL CARE, NEEDS, TREATMENT, MEDICATIONS ADMINISTERED ANTICIPATED PER SCHEDULE. PT KEPT CLEAN AND DRY. SAFETY PRECAUTIONS IN PLACE, BED IN LOWEST LOCKED POSITION, HOB ELEVATED TO SEMI FOWLERS POSITION, SIDE RAILS UP, CALL LIGHT WITHIN REACH, WILL ENDORSE TO SUPPLIES PACKER NURSE FOR LINO.
[2019-10-25 20:00] VITALS: BP 131/65
--- NOTE | 2019-10-25 20:12 | NUR ---
MS RN NOTES PER AM SHIFT, REPORT GIVEN TO [facility] TO TRE RN CHIEF ENGINEER RESEARCH; PATIENT GOING TO ROOM 204; PATIENT A/OX1, GREENLANDIC SPEAKING; BREATHING EVEN AND UNLABORED; TOLERATING ROOM AIR WELL; NO SOB NOTED; L AC #20 REMOVED, IV TIP INTACT; NO S/S OF BLEEDING NOTED; RCW PERMA CATH PRESENT; VITAL SIGNS STABLE; BELONGINGS WITH PATIENT; PATIENT DISCHARGED FROM UNIT, ACCOMPANIED BY 2 EMT STAFF
== END 2019-10-25 20:00 | DRG 391 ==
LOC: TELE 14:13 → MED 10-21 11:14
PROVIDERS: ADMIT Student in an Organized Health Care Education/Training Program; ATTEND Student in an Organized Health Care Education/Training Program
PROC: 0DJ08ZZ Inspection of Upper Intestinal Tract, Via Natural or Artificial Opening Endoscopic (ICD-10-PCS; principal; 2019-10-20)
PROC: 5A1D70Z Performance of Urinary Filtration, Intermittent, Less than 6 Hours Per Day (ICD-10-PCS; 2019-10-21)
DX: K21.0 Gastro-esophageal reflux disease with esophagitis (principal); N18.6 End stage renal disease; G92 Toxic encephalopathy; I13.2 Hypertensive heart and chronic kidney disease with heart failure and with stage 5 chronic kidney disease, or end stage renal disease; D62 Acute posthemorrhagic anemia; I50.32 Chronic diastolic (congestive) heart failure; N17.9 Acute kidney failure, unspecified; I25.10 Atherosclerotic heart disease of native coronary artery without angina pectoris; Z99.2 Dependence on renal dialysis; K44.9 Diaphragmatic hernia without obstruction or gangrene; D64.9 Anemia, unspecified; E78.00 Pure hypercholesterolemia, unspecified; F03.90 Unspecified dementia, unspecified severity, without behavioral disturbance, psychotic disturbance, mood disturbance, and anxiety; F32.9 Major depressive disorder, single episode, unspecified; Z90.49 Acquired absence of other specified parts of digestive tract; Z79.899 Other long term (current) drug therapy; L90.5 Scar conditions and fibrosis of skin
CPT/HCPCS: 36415; 71045-TC; 80048-TC; 83735-TC; 83970; 84100-TC; 84443-TC; 85025-TC; 86706; 87081-TC; 87340; 90935-TC; A4216; A6403; C9113; G0378; J0330; J0696; J2704; J3490; J7060; P9047

== ENCOUNTER 2021-10-12 20:33 | Inpatient (IN) | payer MEDICARE, OTHER ==
[~2021-10-12] VITALS: Ht 152.4 cm; Wt 30.8 kg
[~2021-10-12 20:33] MED LIST changes: -ACET-2605 PO; +AMLO-212 PO; -AMLO5TAB9 PO; +CALC0.253 PO; -CEPH-570 PO; -CYAN-51 PO; -MAGN400O6 PO; +VITA1TAB20 PO
--- NOTE | 2021-10-12 21:03 | NUR ---
[facility] FROM SNF. MISSED DIALYSIS TODAY. PT COVID (+). PLACED COMFORTABLY IN BED. A/O X3. ATTACHED TO MONITOR. HD ACCESS ON RIGHT SUBCLAVIAN PERMCATH.
--- NOTE | 2021-10-12 21:04 | NUR ---
IV CANNULA 20G LEFT AC. BLOOD DRAWN AND SENT TO LAB
--- NOTE | 2021-10-12 21:05 | NUR ---
COVID SWAB DONE AND SENT TO LAB
--- NOTE | 2021-10-12 21:05 | NUR ---
CXR DONE AT BEDSIDE
[2021-10-12 21:28] LABS: CALCIUM, SERUM 9.3 mg/dL (8.5-10.1); CARBON DIOXIDE 32 mmol/L (21-32); CHLORIDE 101 mmol/L (98-107); CREATININE 5.7 mg/dL (0.6-1.3); GLUCOSE 83 mg/dL (74-106); SODIUM SERUM 138 mmol/L (136-145); UREA NITROGEN, BLOOD 18 mg/dL (7-18)
[2021-10-12 21:43] LABS: BASOPHILS % (AUTO) 0.6 % (0.0-2.0); EOSINOPHILS % (AUTO) 3.6 % (0.0-6.0); HEMATOCRIT 31 % (33-45); LYMPHOCYTES # (AUTO) 1.3 K/uL (0.8-4.8); LYMPHOCYTES % (AUTO) 30.5 % (20.0-44.0); MEAN CORPUSCULAR HGB CONC 33 g/dl (31.0-36.0); MEAN CORPUSCULAR VOLUME 93 fL (82-100); MONOCYTES # (AUTO) 0.4 K/uL (0.1-1.30); NEUTROPHILS # (AUTO) 2.4 K/uL (1.8-8.9); NEUTROPHILS % (AUTO) 55.3 % (43.0-81.0); PLATELET COUNT (AUTO) 146 K/uL (150-450); RED BLOOD CELL COUNT(AUTO) 3.27 MIL/uL (4.0-5.2); WHITE BLOOD COUNT (AUTO) 4.4 K/uL (4.3-11.0)
--- NOTE | 2021-10-12 22:20 | NUR ---
pcr collected sent to lab
--- NOTE | 2021-10-12 23:07 | NUR ---
TRIED TO GIVE REPORT. RN IS AT BEDSIDE.
--- NOTE | 2021-10-12 23:18 | NUR ---
REPORT GIVEN TO EDIS WHITFIELD
--- NOTE | 2021-10-12 23:30 | NUR ---
PATIENT ARRIVED FROM ER, AWAKE, A/O X1. NO S/S OF DISTRESS NOTED. NO COMPLAIN OF PAIN. CALL LIGHT WITHIN REACH. BED IN LOWEST AND LOCKED POSITION. HOB ELEVATED. WITH RIGHT SUBCLAVIAN PERMA CATH INTACT.
--- NOTE | 2021-10-12 23:30 | NUR ---
TRANSFERRED PATIENT TO RM 120-1
--- NOTE | 2021-10-12 23:59 | NUR ---
BP 230/98 HR 92, PATIENT IS ASYMPTOMATIC, CABIN OUTFITTER CHARLES AWARE.
[2021-10-13] MEDS ORDERED: ZOLPIDEM TARTRATE 5 MG TABLET PO PRN
[2021-10-13] MEDS ORDERED: METOCLOPRAMIDE HCL 10 MG TABLET PO PRN
[2021-10-13] MEDS ORDERED: Z GUARD REMEDY 4 OZ OINT TP PRN
[2021-10-13] MEDS: hydrALAZINE HCL IV 20 MG VIAL IV PRN (00:33)
[2021-10-13 03:12] VITALS: BP 157/76
--- NOTE | 2021-10-13 07:44 | NUR ---
RN NOTE PT RECEIVED RESTING IN BED. AWAKE ALERT AND VERBALLY RESPONSIVE. IN ROOM AIR. NOT IN RESPI DISTRESS. COVID PREC. PCR PENDING. R SUBCLAVIAN PERMACATH IN PLACE. WITH IV ACCES ON LAC G20. SAFETY MEASURES FOLLOWED. WILL CONT TO MONITOR.
[2021-10-13] MEDS ORDERED: AMLODIPINE BESYLATE 5 MG TABLET PO SCH (09:00)
[2021-10-13] MEDS: FERROUS SULFATE (325 MG) 325 MG/TAB TABLET PO SCH ×2 (09:04→17:54)
[2021-10-13] MEDS: SENNOSIDES 8.6 MG TABLET PO SCH ×2 (09:04→17:54)
[2021-10-13] MEDS: DOCUSATE SODIUM 100 MG CAPSULE PO SCH ×2 (09:04→17:54)
[2021-10-13] MEDS: CALCITRIOL 0.25 MCG CAPSULE PO SCH (09:04)
[2021-10-13] MEDS: hydrALAZINE HCL 25 MG TABLET PO SCH ×3 (09:05→17:54)
[2021-10-13] MEDS: AMLODIPINE BESYLATE 5 MG TABLET PO SCH ×2 (09:06→17:54)
[2021-10-13] MEDS: METOPROLOL TARTRATE 25 MG TABLET PO SCH ×2 (09:06→17:54)
[2021-10-13] MEDS: HEPARIN SODIUM, PORCINE 5000 UNITS/1 ML VIAL SQ SCH ×2 (09:11→21:09)
[2021-10-13] MEDS: PANTOPRAZOLE 40 MG TABLET.DR PO SCH (09:32)
[2021-10-13] MEDS ORDERED: NEPRO VAN 237 ML CAN PO PRN (11:00)
[2021-10-13 11:40] LABS: BASOPHILS % (AUTO) 0.6 % (0.0-2.0); EOSINOPHILS % (AUTO) 2.2 % (0.0-6.0); HEMATOCRIT 26 % (33-45); HEMOGLOBIN 8.5 g/dL (11.5-14.8); LYMPHOCYTES # (AUTO) 0.8 K/uL (0.8-4.8); LYMPHOCYTES % (AUTO) 17.7 % (20.0-44.0); MEAN CORPUSCULAR HGB CONC 33 g/dl (31.0-36.0); MEAN CORPUSCULAR VOLUME 93 fL (82-100); MONOCYTES # (AUTO) 0.4 K/uL (0.1-1.30); MONOCYTES % (AUTO) 8.9 % (2.0-12.0); NEUTROPHILS # (AUTO) 3.4 K/uL (1.8-8.9); NEUTROPHILS % (AUTO) 70.6 % (43.0-81.0); PLATELET COUNT (AUTO) 136 K/uL (150-450); RED BLOOD CELL COUNT(AUTO) 2.73 MIL/uL (4.0-5.2); WHITE BLOOD COUNT (AUTO) 4.8 K/uL (4.3-11.0)
[2021-10-13 12:00] VITALS: BP 145/82
[2021-10-13 12:09] LABS: CALCIUM, SERUM 8.3 mg/dL (8.5-10.1); CARBON DIOXIDE 31 mmol/L (21-32); CHLORIDE 101 mmol/L (98-107); CREATININE 5.5 mg/dL (0.6-1.3); GLUCOSE 148 mg/dL (74-106); MAGNESIUM 1.8 mg/dL (1.8-2.4); POTASSIUM 4.4 mmol/L (3.5-5.1); SODIUM SERUM 138 mmol/L (136-145); UREA NITROGEN, BLOOD 22 mg/dL (7-18)
[2021-10-13] MEDS: ACETAMINOPHEN 325 MG TABLET PO PRN (13:01)
--- NOTE | 2021-10-13 14:07 | NUR ---
RN NOTE PT S/P HD, WITH 1L FLUIDS REMOVED. PT IN GOOD CONDITION. V/S STABLE. WILL CONTINUE TO MONITOR
--- NOTE | 2021-10-13 14:22 | NUR ---
RN NOTE PT ON HD, PO BP MEDS HYDRALAZINE 1300 DOSE HELD
[2021-10-13 16:00] VITALS: BP 136/59
--- NOTE | 2021-10-13 18:56 | NUR ---
RN NOTE PT RESTING IN BED. AWAKE ALERT AND VERBALLY RESPONSIVE. IN ROOM AIR. NOT IN RESPI DISTRESS. COVID PREC. PCR PENDING. R SUBCLAVIAN PERMACATH IN PLACE. WITH IV ACCES ON LAC G20. SAFETY MEASURES FOLLOWED.DUE MEDICATIONS GIVEN, AM/PM CARE DONE. WILL CONT TO MONITOR.
--- NOTE | 2021-10-13 19:15 | NUR ---
RN NOTES RECEIVED PT FOR CONTINUITY OF CARE. PATIENT A/OX1; CONFUSED IN NO S/SX OF ACUTE DISTRESS AT THIS TIME; CURRENTLY ON ROOM AIR; WITH 02 SAT >93% AT THIS TIME. WILL ENSURE SAFETY MEASURES WITHIN THE SHIFT. PATIENT BED ALARM IS ON. HEAD OF BED ELEVATED. BED IS LOCKED, IN LOWEST POSITION AND SIDE RAILS UP. CALL LIGHT WITHIN REACH OF THE PATIENT. APPLICABLE ISOLATION PRECAUTIONS IN PLACE. WILL CONTINUE TO MONITOR AND REASSESS FOR ANY CHANGES AND WILL CARRY OUT ANY ONGOING AND ACTIVE MD ORDER.
[2021-10-13 20:00] VITALS: BP 120/52
[2021-10-13] MEDS: ATORVASTATIN 40 MG TABLET PO SCH (21:08)
[2021-10-14] VITALS: BP 118/72
[2021-10-14 04:00] VITALS: BP 121/80
--- NOTE | 2021-10-14 04:00 | NUR ---
RN NOTES PATIENT REMAINED TO BE IN NO SIGNS OF ACUTE RESPIRATORY DISTRESS, SAFE ENVIRONMENT MAINTAINED FOR PT. AM PATIENT CARE DONE. WILL CONTINUE TO MONITOR AND REASSESS FOR ANY CHANGES THROUGHOUT THE SHIFT.
--- NOTE | 2021-10-14 06:45 | NUR ---
RN CLOSING NOTE: PATIENT REMAINS IN ROOM IN NO SIGNS OF RESPIRATORY DISTRESS, PATIENT STILL ON ROOM AIR;TOLERATING WELL SATURATING @ >95% SP02. SR ON MONITOR. ON DROPLET PREC. SAFETY MEASURES IMPLEMENTED, BED IN LOWEST POSITION, LOCKED, SIDE RAILS UP, CALL LIGHT WITHIN REACH. ALL NEEDS AND ORDERS ADDRESSED DURING THE SHIFT. IV ACCESS MAINTAINED INTACT, SECURED AND FLUSHING WELL. ALL DUE MEDS GIVEN ORDERED & SCHEDULED ; PATIENT TOLERATED WELL. PATIENT KEPT CLEAN AND COMFORTABLE WITHIN THE SHIFT. PATIENT ENDORSED TO INCOMING SHIFT RN WITH STABLE VITAL SIGN AND FOR CONTINUITY OF CARE.
--- NOTE | 2021-10-14 07:15 | NUR ---
TELE/RN OPENING NOTE PATIENT AWAKE LAYING IN BED A&OX1. ALL VSS. PATIENT SATTING AT 96% ON ROOM AIR SR. VOIDING VIA DIAPER. DIET RENAL STANDARD. IV LAC #20G PATENT AND INTACT FLUSHED WITH NS. R SUBCLAVIAN HD PERMACATH. COVID PCR PENDING. ALL SAFETY FALL PRECAUTIONS IN PLACE BED IN LOWEST POSITION, SIDE RAILS UP, BED LOCK ON, BED ALARM ON, CALL LIGHT WITHIN REACH. WILL CONTINUE TO MONITOR.
--- NOTE | 2021-10-14 07:45 | NUR ---
TELE/RE NOTE PATIENT REFUSED THE MORNING LABS. I WENT INTO THE PATIENTS ROOM AND ASKED HER IS WE COULD TAKE THE LABS AND SHE AGREED BUT THE LAB [facility] WAS NOT ABLE TO GET BLOOD. LAB WILL SEND SOMEONE ELSE LATER TODAY.
[2021-10-14 08:00] VITALS: BP 171/73
--- NOTE | 2021-10-14 08:00 | NUR ---
RN/TELE NOTE PATIENT WAS CLEANED ALL LINEN WAS CHANGED, A NEW GOWN WAS PROVIDED. PATIENT WAS ADJUSTED IN THE BED WITH PILLOWS FOR COMFORT. ALL SAFETY FALL PRECAUTIONS IN PLACE.
[2021-10-14] MEDS: HEPARIN SODIUM, PORCINE 5000 UNITS/1 ML VIAL SQ SCH ×2 (09:23→21:17)
[2021-10-14] MEDS: AMLODIPINE BESYLATE 5 MG TABLET PO SCH ×3 (09:24→16:40)
[2021-10-14] MEDS: ACETAMINOPHEN 325 MG TABLET PO PRN (09:25)
[2021-10-14] MEDS: FERROUS SULFATE (325 MG) 325 MG/TAB TABLET PO SCH ×3 (09:25→16:40)
[2021-10-14] MEDS: DOCUSATE SODIUM 100 MG CAPSULE PO SCH ×3 (09:25→16:40)
[2021-10-14] MEDS: METOPROLOL TARTRATE 25 MG TABLET PO SCH ×3 (09:25→16:40)
[2021-10-14] MEDS: SENNOSIDES 8.6 MG TABLET PO SCH ×3 (09:25→16:40)
[2021-10-14] MEDS: CALCITRIOL 0.25 MCG CAPSULE PO SCH (09:26)
[2021-10-14] MEDS: PANTOPRAZOLE 40 MG TABLET.DR PO SCH (09:26)
[2021-10-14] MEDS: hydrALAZINE HCL 25 MG TABLET PO SCH ×4 (09:26→16:39)
[2021-10-14] MEDS ORDERED: ACET-868 PO (10:19)
[2021-10-14] MEDS ORDERED: NITR0.4T48 SL (10:19)
[2021-10-14] MEDS ORDERED: MENT71OI2 TP (10:19)
[2021-10-14] MEDS ORDERED: NEUTRA-PHOS PO (10:19)
[2021-10-14] MEDS ORDERED: ACET-2605 PO (10:19)
[2021-10-14] MEDS ORDERED: CLON0.1T PO (10:19)
[2021-10-14] MEDS ORDERED: AMIN30LI2 PO (10:19)
[2021-10-14] MEDS ORDERED: NUT.237L67 PO (10:19)
[2021-10-14] MEDS ORDERED: POLY17PO4 PO (10:19)
[2021-10-14] MEDS ORDERED: ALBU8.5H8 IH (10:19)
[2021-10-14] MEDS ORDERED: ONDA-97 PO (10:19)
[2021-10-14] MEDS ORDERED: DICL100G26 TP (10:19)
[2021-10-14 12:00] VITALS: BP 115/50
--- NOTE | 2021-10-14 15:00 | NUR ---
PATIENT REFUSED ALL HER PO MEDS, VERBALLY ABUSIVE TO STAFF AND WAS TRYING TO HIT THE STAFF WHO WAS GIVING THE MEDICATIONS. CONTACTED
[2021-10-14 16:00] VITALS: BP 135/56
--- NOTE | 2021-10-14 16:00 | NUR ---
FERNIE EDI ARCHITECT CAME AND REPORTED THAT THE PATIENT REFUSED TO BE DRAWN FOR HER CBC AND CMP. PATIENT BECAME COMBATIVE AND AGGRESSIVE TOWARDS THE EDI ARCHITECT. WILL TRY AGAIN THE 3RD TIME.
--- NOTE | 2021-10-14 17:32 | NUR ---
RECEIVED A MESSAGE FROM BRADEN STRICKLAND AND ORDERED PSYCH CONSULT AND TO DO HER NEXT LAB DRAW ON PATIENT'S NEXT HD. CALLED PSYCH 190, SPOKE WITH FLORENCE AND STATED THAT DR. MARINO IS THE MANAGER IMPLEMENTATION DOCTOR AND TO PLS FAX THE PAPERWORK TO THE OFFICE. RECEIVED CONFIRMATION RECEIPT.
--- NOTE | 2021-10-14 17:37 | NUR ---
CORRECTION ON THE NOTE EARLIER TIME WAS SUPPOSED TO BE 1700. PT REFUSED ALL HER PM MEDS AND WAS VERBALLY ABUSIVE TO STAFF AND IS TRYING TO HIT THE NURSE. LEFT A MESSAGE FOR DOCTOR ATHLETIC AGENT
--- NOTE | 2021-10-14 18:48 | NUR ---
RN CLOSING NOTES: PATIENT IN BED, ASLEEP BUT EASILY AROUSABLE TO TOUCH AND SOUND. PATIENT ALERT X 1 WITH PERIODS OF CONFUSION. PATIENT IS IN RA WITH OXYGEN SATURATION OF 98%. BREATHING UNLABORED AND REGULARLY. NO SOB AND NO S/S RESPIRATORY DISTRESS NOTED AT THIS TIME. PATIENT ON SR WITH HR OF 72. PATIENT ONLY HAD 400 CC OF FLUID INTAKE. NURSE WANTED TO CHECK HER IV LINE FOR PATENCY THE LAST TIME BUT PATIENT SAID "NO" AND REFUSES FOR THE NURSE TO TOUCH HER. NURSE VISIBLY SAW THE IV SITE ON LEFT AC WITH # 20 GAUGE INTACT, WITH NO INFILTRATION, NO BLOOD NOTED. PT HAS NO S/S OF PAIN OR DISCOMFORT. NO EPISODES OF N/V. WILL ENDORSE TO NEXT SHIFT NURSE FOR CONTINUITY OF CARE.
--- NOTE | 2021-10-14 19:40 | NUR ---
RN OPENING NOTES: RECEIVED PATIENT IN BED, ASLEEP BUT EASILY AROUSABLE, A/O X1 WITH CONFUSION AND VERBALLY RESPONSIVE. ON ROOM AIR AND PT TOLERATED WELL. BREATHING EVEN AND UNLABORED. IV ACCESS ON LAC #20G INTACT AND PATENT. NO S/S OF INFILTRATIONS. RT SUBCLAVIAN HD CATH INTACT AND COVERED WITH DRY DRESSING. NO FACIAL GRIMACING NOTED. NO ACUTE DISTRESS. ALL SAFETY MEASURES IN PLACE. BED IN LOWEST POSITION AND LOCKED. SIDE RAILS UP X3, PLACE CALL LIGHT WITH IN REACH. WILL CONTINUE TO MONITOR
[2021-10-14 20:00] VITALS: BP 153/69
[2021-10-14] MEDS: ATORVASTATIN 40 MG TABLET PO SCH (21:16)
--- NOTE | 2021-10-14 22:00 | NUR ---
RN NOTES: PT TOOK HER MEDICATIONS WITHOUT ANY RESISTANT. PT AGREED TO DO THE LAB, LINE ERECTOR UNABLE TO DRAW BLOOD. WILL CONTINUE TO MONITOR
[2021-10-15] VITALS: BP 150/65
[2021-10-15 04:00] VITALS: BP 150/80
[2021-10-15 06:40] LABS: BASOPHILS % (AUTO) 0.9 % (0.0-2.0); HEMATOCRIT 28 % (33-45); LYMPHOCYTES # (AUTO) 1.1 K/uL (0.8-4.8); MEAN CORPUSCULAR HGB CONC 33 g/dl (31.0-36.0); MEAN CORPUSCULAR VOLUME 94 fL (82-100); MONOCYTES # (AUTO) 0.4 K/uL (0.1-1.30); MONOCYTES % (AUTO) 11.1 % (2.0-12.0); NEUTROPHILS # (AUTO) 2.1 K/uL (1.8-8.9); PLATELET COUNT (AUTO) 141 K/uL (150-450); RED BLOOD CELL COUNT(AUTO) 2.95 MIL/uL (4.0-5.2); WHITE BLOOD COUNT (AUTO) 3.9 K/uL (4.3-11.0)
--- NOTE | 2021-10-15 06:45 | NUR ---
RN CLOSING NOTES: PATIENT IN BED, ASLEEP BUT EASILY AROUSABLE, A/O X1 WITH CONFUSION AND VERBALLY RESPONSIVE. ON ROOM AIR AND PT TOLERATED WELL. O2 SAT 99%. BREATHING EVEN AND UNLABORED. IV ACCESS ON LAC #20G INTACT AND PATENT. NO S/S OF INFILTRATIONS. RT SUBCLAVIAN HD CATH INTACT AND COVERED WITH DRY DRESSING. NO FACIAL GRIMACING NOTED. NO ACUTE DISTRESS. ALL DUE MEDS GIVEN ORDERED. ALL SAFETY MEASURES IN PLACE. BED IN LOWEST POSITION AND LOCKED. SIDE RAILS UP X3, PLACE CALL LIGHT WITH IN REACH. WILL ENDORSE TO MORNING SHIFT NURSE.
[2021-10-15 06:52] LABS: CARBON DIOXIDE 27 mmol/L (21-32); CHLORIDE 102 mmol/L (98-107); GLUCOSE 80 mg/dL (74-106); MAGNESIUM 1.9 mg/dL (1.8-2.4); PHOSPHORUS 5.2 mg/dL (2.5-4.9); POTASSIUM 3.7 mmol/L (3.5-5.1); SODIUM SERUM 139 mmol/L (136-145); UREA NITROGEN, BLOOD 20 mg/dL (7-18)
--- NOTE | 2021-10-15 07:35 | NUR ---
GLASS HANDLER OPENING NOTE: PATIENT IN BED. PATIENT IS ALERT AND ORIENTED X1-2. PATIENT SHOWS SIGNS OF CONFUSION. PATIENT IS CHINESE SPEAKING. PATIENT IS ON ROOM AIR AND SATURATING ABOVE 99 %. PATIENT HAS IV ACCESS ON LEFT AC #20G INTACT AND PATENT.RIGHT SUBCLAVIAN HD CATH INTACT AND COVERED WITH DRY DRESSING. NO SIGNS OF DISTRESS OR PAIN. ALL SAFETY MEASURES IN PLACE. CALL LIGHT WITHIN REACH. BEDSIDE TABLE NEXT TO PATIENT. BED LOCKED IN LOWEST POSITION. BED ALARM ON. WILL CONTINUE TO ASSESS THROUGHOUT SHIFT
[2021-10-15] MEDS: PANTOPRAZOLE 40 MG TABLET.DR PO SCH (07:52)
[2021-10-15 08:00] VITALS: BP 134/66
[2021-10-15] MEDS: HEPARIN SODIUM, PORCINE 5000 UNITS/1 ML VIAL SQ SCH ×2 (09:00→21:22)
[2021-10-15] MEDS: FERROUS SULFATE (325 MG) 325 MG/TAB TABLET PO SCH ×2 (09:00→17:09)
[2021-10-15] MEDS: METOPROLOL TARTRATE 25 MG TABLET PO SCH ×2 (09:00→17:00)
[2021-10-15] MEDS: SENNOSIDES 8.6 MG TABLET PO SCH ×2 (09:00→16:52)
[2021-10-15] MEDS: DOCUSATE SODIUM 100 MG CAPSULE PO SCH ×2 (09:00→16:51)
[2021-10-15] MEDS: hydrALAZINE HCL 25 MG TABLET PO SCH ×3 (09:00→17:00)
[2021-10-15] MEDS: AMLODIPINE BESYLATE 5 MG TABLET PO SCH ×2 (09:00→17:08)
[2021-10-15] MEDS: CALCITRIOL 0.25 MCG CAPSULE PO SCH (09:00)
[2021-10-15] MEDS: ONDANSETRON HCL/PF 4 MG/2 ML VIAL IVP PRN (09:53)
--- NOTE | 2021-10-15 09:53 | NUR ---
spoke with BRADEN pérez about patient condition. pt vomiting and has nausea. said to give PRN Zofran
--- NOTE | 2021-10-15 10:07 | NUR ---
deric up zofran.patient refused zofran. waste in pharmaceutical waste only container in med room
--- NOTE | 2021-10-15 10:07 | NUR ---
patient refusing all medications croatian translation. explained benefits of medications still refused
--- NOTE | 2021-10-15 10:08 | NUR ---
POLICY VALUE CALCULATOR saw patient, ordered KUB and make her NPO except meds
--- NOTE | 2021-10-15 11:20 | NUR ---
WOUND CARE CONSULT: REVIEWED CHART, NURSING DOCUMENTATION AND PHOTOS WHICH INDICATE SACRAL INTACT DEEP TISSUE INJURY AND SCARRING WELL LEFT LOWER LEG CRUSTED WOUND, PRESENT ON ADMISSION. DPM CONSULT CALLED TO DR CUELLAR. RECOMMENDATIONS MADE FOR SKIN PROTECTION. DISCUSSED WITH NURSING STAFF. M Paula IN AGREEMENT WITH PLAN OF CARE.
[2021-10-15 11:25] LABS: ALBUMIN 2.9 g/dL (3.4-5.0); BILIRUBIN,DIRECT 0.1 mg/dL (0.0-0.2); BILIRUBIN,TOTAL 0.5 mg/dL (0.2-1.0); TOTAL PROTEIN, SERUM 6.2 g/dL (6.4-8.2)
[2021-10-15 12:00] VITALS: BP 132/63
[2021-10-15 16:00] VITALS: BP 160/67
--- NOTE | 2021-10-15 17:56 | NUR ---
spoke with Dr. Sotomayor endorse maybe ghanaian speaking staff will make her more comfortable with taking meds. patient has no family
--- NOTE | 2021-10-15 17:58 | NUR ---
able to give bp medications with mohawk translation
--- NOTE | 2021-10-15 19:30 | NUR ---
RECORD CENTER SPECIALIST CLOSING NOTE: PATIENT IN BED. PATIENT IS ALERT AND ORIENTED X1-2. PATIENT SHOWS SIGNS OF CONFUSION. PATIENT IS KHMER SPEAKING. PATIENT IS ON ROOM AIR AND SATURATING ABOVE 99 %. PATIENT HAS IV ACCESS ON LEFT AC #20 GAUGE INTACT AND PATENT. FLUSHING WELL. PATIENT HAS RIGHT SUBCLAVIAN HD CATH INTACT AND COVERED WITH DRY DRESSING PATIENT IS NPO EXCEPT MEDS.NO SIGNS OF DISTRESS OR PAIN. ALL SAFETY MEASURES IN PLACE. CALL LIGHT WITHIN REACH. BEDSIDE TABLE NEXT TO PATIENT. BED LOCKED IN LOWEST POSITION. BED ALARM ON
[2021-10-15 20:00] VITALS: BP 174/73
[2021-10-15] MEDS: hydrALAZINE HCL IV 20 MG VIAL IV PRN (21:20)
[2021-10-15] MEDS: ATORVASTATIN 40 MG TABLET PO SCH (21:20)
--- NOTE | 2021-10-15 21:30 | NUR ---
RN NOTES: PT'S BLOOD PRESSURE 174/73, PULSE- 85. HYDRALAZINE O.5 ML GIVEN PER PRN ORDER. PT TOLERATED WELL. HEPARIN AND LIPITOR GIVEN. WILL CONTINUE TO MONITOR
[2021-10-16] VITALS: BP 137/70
[2021-10-16 04:00] VITALS: BP 164/82
--- NOTE | 2021-10-16 06:42 | NUR ---
RN CLOSING NOTES: PATIENT IN BED, ASLEEP BUT EASILY AROUSABLE, A/O X1 WITH CONFUSION AND VERBALLY RESPONSIVE. ON ROOM AIR AND PT TOLERATED WELL. O2 SAT 99%. BREATHING EVEN AND UNLABORED. IV ACCESS ON LAC #20G INTACT AND PATENT. NO S/S OF INFILTRATIONS. RT SUBCLAVIAN HD CATH INTACT AND COVERED WITH DRY DRESSING. NO FACIAL GRIMACING NOTED. NO ACUTE DISTRESS. ALL DUE MEDS GIVEN ORDERED WITH LUBE WORKER. ALL SAFETY MEASURES IN PLACE. BED IN LOWEST POSITION AND LOCKED. SIDE RAILS UP X3, PLACE CALL LIGHT WITH IN REACH. WILL ENDORSE TO MORNING SHIFT NURSE.
[2021-10-16 07:29] LABS: HEMATOCRIT 30 % (33-45); HEMOGLOBIN 9.9 g/dL (11.5-14.8); MEAN CORPUSCULAR HGB CONC 34 g/dl (31.0-36.0); MEAN CORPUSCULAR VOLUME 93 fL (82-100); RED BLOOD CELL COUNT(AUTO) 3.17 MIL/uL (4.0-5.2); WHITE BLOOD COUNT (AUTO) 4.3 K/uL (4.3-11.0)
[2021-10-16 07:30] LABS: EOSINOPHILS % (AUTO) 4.9 % (0.0-6.0); LYMPHOCYTES # (AUTO) 1.1 K/uL (0.8-4.8); LYMPHOCYTES % (AUTO) 26.6 % (20.0-44.0); MONOCYTES # (AUTO) 0.4 K/uL (0.1-1.30); MONOCYTES % (AUTO) 10.3 % (2.0-12.0); NEUTROPHILS # (AUTO) 2.5 K/uL (1.8-8.9); NEUTROPHILS % (AUTO) 57.2 % (43.0-81.0); PLATELET COUNT (AUTO) 146 K/uL (150-450)
--- NOTE | 2021-10-16 07:48 | NUR ---
RN OPENING NOTES: RECEIVED PATIENT IN BED, ASLEEP BUT EASILY AROUSAL, A/O X1 WITH CONFUSION AND VERBALLY RESPONSIVE. ON ROOM AIR AND PT TOLERATED WELL. BREATHING EVEN AND UNLABORED. IV ACCESS ON LAC #20G INTACT AND PATENT. NO S/S OF INFILTRATIONS. NO FACIAL GRIMACING NOTED. NO ACUTE DISTRESS. ALL SAFETY MEASURES IN PLACE. BED IN LOWEST POSITION AND LOCKED. SIDE RAILS UP X3, PLACE CALL LIGHT WITH IN REACH. WILL CONTINUE TO MONITOR
[2021-10-16 08:00] VITALS: BP 154/70
[2021-10-16] MEDS: DOCUSATE SODIUM 100 MG CAPSULE PO SCH ×2 (08:15→17:01)
[2021-10-16] MEDS: FERROUS SULFATE (325 MG) 325 MG/TAB TABLET PO SCH ×2 (08:15→17:01)
[2021-10-16] MEDS: PANTOPRAZOLE 40 MG TABLET.DR PO SCH (08:15)
[2021-10-16] MEDS: CALCITRIOL 0.25 MCG CAPSULE PO SCH (08:15)
[2021-10-16] MEDS: AMLODIPINE BESYLATE 5 MG TABLET PO SCH ×2 (08:17→17:01)
[2021-10-16] MEDS: METOPROLOL TARTRATE 25 MG TABLET PO SCH ×2 (08:17→17:00)
[2021-10-16] MEDS: hydrALAZINE HCL 25 MG TABLET PO SCH ×3 (08:17→17:00)
[2021-10-16] MEDS: HEPARIN SODIUM, PORCINE 5000 UNITS/1 ML VIAL SQ SCH ×2 (08:20→21:28)
[2021-10-16] MEDS: SENNOSIDES 8.6 MG TABLET PO SCH ×2 (08:21→17:01)
[2021-10-16 08:23] LABS: CALCIUM, SERUM 8.9 mg/dL (8.5-10.1); CARBON DIOXIDE 24 mmol/L (21-32); CHLORIDE 101 mmol/L (98-107); CREATININE 6.5 mg/dL (0.6-1.3); GLUCOSE 75 mg/dL (74-106); MAGNESIUM 2.1 mg/dL (1.8-2.4); PHOSPHORUS 5.2 mg/dL (2.5-4.9); SODIUM SERUM 137 mmol/L (136-145); UREA NITROGEN, BLOOD 32 mg/dL (7-18)
[2021-10-16 13:42] VITALS: BP 154/70
[2021-10-16 16:00] VITALS: BP 174/78
--- NOTE | 2021-10-16 18:45 | NUR ---
PATIENT IN BED, ASLEEP BUT EASILY AROUSABLE, A/O X1 WITH CONFUSION AND VERBALLY RESPONSIVE. ON ROOM AIR AND PT TOLERATED WELL. O2 SAT 99%. BREATHING EVEN AND UNLABORED. IV ACCESS ON LAC #20G INTACT AND PATENT. NO S/S OF INFILTRATIONS. HAS SUBCLAVIAN HD CATH INTACT AND COVERED WITH DRY DRESSING. NO FACIAL GRIMACING NOTED. NO ACUTE DISTRESS. PATIENT UNDERWENT HEMODIALYSIS, BUT REFUSED 3 BLOOD LAB WORK IN A ROW . ALL DUE MEDS GIVEN ORDERED. ALL SAFETY MEASURES IN PLACE. BED IN LOWEST POSITION AND LOCKED. SIDE RAILS UP X3, PLACE CALL LIGHT WITH IN REACH. WILL ENDORSE TO MORNING SHIFT NURSE.
[2021-10-16 20:00] VITALS: BP 164/54
[2021-10-16] MEDS: ATORVASTATIN 40 MG TABLET PO SCH (21:29)
[2021-10-17] VITALS: BP 141/53
[2021-10-17 04:00] VITALS: BP 183/63
[2021-10-17] MEDS: hydrALAZINE HCL IV 20 MG VIAL IV PRN (04:49)
--- NOTE | 2021-10-17 04:49 | NUR ---
RN NOTES: PT'S BP- 183/63, PULSE- 75. HYDRALAZINE 0.5 ML GIVEN PER PRN ORDER. NO S/S OF HYPER/HYPOTENSION. WILL CONTINUE TO MONITOR
--- NOTE | 2021-10-17 06:41 | NUR ---
RN CLOSING NOTES: PATIENT IN BED, ASLEEP BUT EASILY AROUSABLE, A/O X1 WITH CONFUSION AND VERBALLY RESPONSIVE. ON ROOM AIR AND PT TOLERATED WELL. O2 SAT 99%. BREATHING EVEN AND UNLABORED. IV ACCESS ON LAC #20G INTACT AND PATENT. NO S/S OF INFILTRATIONS. RT SUBCLAVIAN HD CATH INTACT AND COVERED WITH DRY DRESSING. NO FACIAL GRIMACING NOTED. NO ACUTE DISTRESS. ALL DUE MEDS GIVEN ORDERED WITH NEWS COMMENTATOR. ALL SAFETY MEASURES IN PLACE. BED IN LOWEST POSITION AND LOCKED. SIDE RAILS UP X3, PLACE CALL LIGHT WITH IN REACH. WILL ENDORSE TO MORNING SHIFT NURSE.
[2021-10-17 07:21] LABS: BASOPHILS % (AUTO) 0.8 % (0.0-2.0); EOSINOPHILS % (AUTO) 1.5 % (0.0-6.0); HEMATOCRIT 32 % (33-45); HEMOGLOBIN 10.8 g/dL (11.5-14.8); LYMPHOCYTES # (AUTO) 1.3 K/uL (0.8-4.8); LYMPHOCYTES % (AUTO) 21.5 % (20.0-44.0); MEAN CORPUSCULAR HGB CONC 34 g/dl (31.0-36.0); MEAN CORPUSCULAR VOLUME 95 fL (82-100); MONOCYTES # (AUTO) 0.4 K/uL (0.1-1.30); MONOCYTES % (AUTO) 6.5 % (2.0-12.0); NEUTROPHILS # (AUTO) 4.1 K/uL (1.8-8.9); NEUTROPHILS % (AUTO) 69.7 % (43.0-81.0); PLATELET COUNT (AUTO) 164 K/uL (150-450); WHITE BLOOD COUNT (AUTO) 5.9 K/uL (4.3-11.0)
[2021-10-17 07:47] LABS: CALCIUM, SERUM 9.3 mg/dL (8.5-10.1); CARBON DIOXIDE 21 mmol/L (21-32); CHLORIDE 105 mmol/L (98-107); CREATININE 4.3 mg/dL (0.6-1.3); GLUCOSE 66 mg/dL (74-106); MAGNESIUM 2.2 mg/dL (1.8-2.4); PHOSPHORUS 4.1 mg/dL (2.5-4.9); POTASSIUM 4.2 mmol/L (3.5-5.1); SODIUM SERUM 141 mmol/L (136-145); UREA NITROGEN, BLOOD 18 mg/dL (7-18)
[2021-10-17 08:00] VITALS: BP 132/52
--- NOTE | 2021-10-17 08:08 | NUR ---
RN OPENING NOTE PATIENT IS IN BED ASLEEP BUT EASILY AROUSABLE. ALER, ORIENTED X 1. ON ROOM AIR. SINUS RHYTHM ON FLAVOR TANK TENDER. LEFT ANTECUBITAL LINE INTACT AND PATENT. HD CATH ON RIGHT SUBCLAVIAN INTACT AND PATENT. DENIES PAIN, BREATHING UNLABORED AND NOT IN ANY FORM OF DISTRESS. BED IS LOCKED IN LOWEST POSITION, 3 SIDE RAILS UP, CALL LIGHT WITHIN REACH. WILL CONTINUE TO MONITOR THROUGHOUT SHIFT.
[2021-10-17] MEDS: HEPARIN SODIUM, PORCINE 5000 UNITS/1 ML VIAL SQ SCH ×2 (09:00→09:17)
[2021-10-17] MEDS: hydrALAZINE HCL 25 MG TABLET PO SCH ×3 (09:00→17:06)
--- NOTE | 2021-10-17 09:00 | NUR ---
RN NOTE HYDRALAZINE NOT GIVEN DUE TO BP 132/52.
[2021-10-17] MEDS: FERROUS SULFATE (325 MG) 325 MG/TAB TABLET PO SCH ×2 (09:14→17:30)
[2021-10-17] MEDS: DOCUSATE SODIUM 100 MG CAPSULE PO SCH ×2 (09:14→17:06)
[2021-10-17] MEDS: AMLODIPINE BESYLATE 5 MG TABLET PO SCH ×2 (09:16→17:07)
[2021-10-17] MEDS: METOPROLOL TARTRATE 25 MG TABLET PO SCH ×2 (09:16→17:07)
[2021-10-17] MEDS: CALCITRIOL 0.25 MCG CAPSULE PO SCH (09:16)
[2021-10-17] MEDS: PANTOPRAZOLE 40 MG TABLET.DR PO SCH (09:20)
[2021-10-17] MEDS: SENNOSIDES 8.6 MG TABLET PO SCH ×2 (09:20→17:05)
[2021-10-17 12:00] VITALS: BP 132/41
[2021-10-17] MEDS: APIXABAN 2.5 MG TABLET PO SCH ×2 (13:44→17:26)
[2021-10-17] MEDS: ONDANSETRON HCL/PF 4 MG/2 ML VIAL IVP PRN (15:48)
[2021-10-17 16:00] VITALS: BP 142/44
--- NOTE | 2021-10-17 18:59 | NUR ---
RN CLOSING NOTE PATIENT REMAINED STABLE THROUGHOUT THE SHIFT AND HAS BEEN DOWNGRADED TO MED-SURG. TOLERATES ROOM AIR SATTING AT 99%. LEFT ANTECUBITAL SALINE LOCE INTACT AND PATENT. HD CATHETER ON RIGHT SUBCLAVIAN INTACT AND COVERED WITH DRY DRESSING. DENIES PAIN, BREATHING UNLABORED AND NOT IN ANY FORM OF DISTRESS. ALL HOSPITAL PRECAUTIONS IN PLACE. WILL ENDORSE TO KNOCKUP WORKER NURSE.
--- NOTE | 2021-10-17 19:20 | NUR ---
MS RN OPENING NOTE: RECEIVED PATIENT IN BED ASLEEP BUT EASILY AROUSABLE TO TOUCH AND VOICE. ALERT ORIENTED X 2. ON ROOM AIR. SINUS RHYTHM ON TRANSFER STATION OPERATOR. LEFT ANTECUBITAL LINE INTACT AND PATENT. HD CATH ON RIGHT SUBCLAVIAN INTACT AND PATENT. DENIES PAIN, BREATHING UNLABORED AND NOT IN ANY FORM OF DISTRESS. BED IS LOCKED IN LOWEST POSITION, 3 SIDE RAILS UP, CALL LIGHT WITHIN REACH. WILL CONTINUE TO MONITOR THROUGHOUT SHIFT.
[2021-10-17 20:00] VITALS: BP 159/76
[2021-10-17] MEDS: ATORVASTATIN 40 MG TABLET PO SCH (22:36)
[2021-10-18 06:00] VITALS: BP 163/70
--- NOTE | 2021-10-18 06:36 | NUR ---
MS RN CLOSING NOTE: NO SIGNIFICANT CHANGES THROUGHOUT THE SHIFT, PATIENT IN BED ASLEEP BUT EASILY AROUSABLE TO TOUCH AND VOICE. ALERT ORIENTED X 2. DIVEHI SPEAKING, ON ROOM AIR TOLERATING WELL SATING AT 100%. WITH IV ACCESS ON LEFT ANTECUBITAL LINE INTACT AND PATENT. HD CATH ON RIGHT SUBCLAVIAN INTACT AND PATENT. DENIES PAIN, BREATHING UNLABORED AND NOT IN ANY FORM OF DISTRESS. BED IS LOCKED IN LOWEST POSITION, 3 SIDE RAILS UP, CALL LIGHT WITHIN REACH. WILL CONTINUE TO MONITOR THROUGHOUT SHIFT.
--- NOTE | 2021-10-18 07:27 | NUR ---
RN OPENING NOTE- PT IN BED ASLEEP BUT AWAKENS EASILY. ALERT. ON ROOM AIR. SINUS RHYTHM ON SUPPLY CHAIN TECHNICIAN. IV -LEFT AC LINE #20. HD CATH ON RIGHT SUBCLAVIAN . NO PAIN NOTED ON ASSESSMENT, BREATHING NON-LABORED . BED IS LOCKED IN LOWEST POSITION, SIDE RAILS UP, CALL LIGHT WITHIN REACH. WILL CONTINUE TO MONITOR / ASSIST
[2021-10-18] MEDS: PANTOPRAZOLE 40 MG TABLET.DR PO SCH (07:42)
[2021-10-18] MEDS: METOPROLOL TARTRATE 25 MG TABLET PO SCH ×2 (08:46→16:49)
[2021-10-18] MEDS: AMLODIPINE BESYLATE 5 MG TABLET PO SCH ×2 (08:46→16:50)
[2021-10-18] MEDS: SENNOSIDES 8.6 MG TABLET PO SCH ×2 (08:46→16:56)
[2021-10-18] MEDS: hydrALAZINE HCL 25 MG TABLET PO SCH ×3 (08:46→16:48)
[2021-10-18] MEDS: CALCITRIOL 0.25 MCG CAPSULE PO SCH (08:46)
[2021-10-18] MEDS: DOCUSATE SODIUM 100 MG CAPSULE PO SCH ×2 (08:47→16:53)
[2021-10-18] MEDS: APIXABAN 2.5 MG TABLET PO SCH ×2 (08:47→16:57)
[2021-10-18] MEDS: FERROUS SULFATE (325 MG) 325 MG/TAB TABLET PO SCH ×2 (08:47→16:53)
[2021-10-18 14:00] VITALS: BP 166/68
[2021-10-18] MEDS ORDERED: APIX2.5T PO (14:15)
--- NOTE | 2021-10-18 17:00 | NUR ---
RN NOTE- HD DONE. 800 CC OUT. BP DECREASED SO HD RN STOPPED PROCEDURE. PT VS STABLE NOW.
--- NOTE | 2021-10-18 18:48 | NUR ---
RN CLOSING NOTE- PT IN BED, ALERT, ORIENTED TO PERSON PLACE. . ON ROOM AIR. SINUS RHYTHM ON TALENT RECRUITER. IV -LEFT AC LINE #20. HD CATH ON RIGHT SUBCLAVIAN . BREATHING NON-LABORED . PO INTAKE FAIR, VOIDING / BMS TODAY X 2. BED IS LOCKED IN LOWEST POSITION, SIDE RAILS UP, CALL LIGHT WITHIN REACH. WILL CONTINUE TO MONITOR / ASSIST
[2021-10-18 20:00] VITALS: BP 165/68
--- NOTE | 2021-10-18 20:21 | NUR ---
MS RN OPENING NOTE PATIENT AWAKE IN BED, ALERT/ORIENTED X 2, CONFUSED AT TIMES PER DAYSHIFT NURSE, YI SPEAKING. PATIENT DENIES PAIN AT THIS TIME. PT STABLE ON RA, NO S/S OF DISTRESS OR SOB NOTED, BREATHING JESÚS AND UNLABORED, SPO2: 98%. IV ACCESS LAC #20G INTACT AND SALINE LOCKED. RIGHT SUBCLAVIAN HD CATH NOTED AND INTACT. SAFETY MEASURES IN PLACE: CALL LIGHT WITHIN REACH, SIDE RAILS UP X 2, BED LOCKED IN LOWEST POSITION, BED ALARM ON. WILL CONTINUE TO MONITOR PATIENT
[2021-10-18] MEDS: ATORVASTATIN 40 MG TABLET PO SCH (22:09)
[2021-10-19 04:00] VITALS: BP 134/49
[2021-10-19 07:15] VITALS: BP 120/49
--- NOTE | 2021-10-19 07:27 | NUR ---
MS RN CLOSING NOTE PATIENT SLEEPING IN BED, ALERT/ORIENTED X 1, CONFUSED, CITIZEN OF [place] SPEAKING. PATIENT DENIES PAIN AT THIS TIME. PT STABLE ON RA, NO S/S OF DISTRESS OR SOB NOTED, BREATHING EVEN AND UNLABORED. IV ACCESS LAC #20G INTACT AND SALINE LOCKED. RIGHT SUBCLAVIAN HD CATH NOTED AND INTACT. MEDICATIONS GIVEN ORDERED, PT NEEDS MET THROUGHOUT SHIFT. SAFETY MEASURES IN PLACE: CALL LIGHT WITHIN REACH, SIDE RAILS UP X 2, BED LOCKED IN LOWEST POSITION, BED ALARM ON. ENDORSED TO DAY SHIFT NURSE FOR CONTINUITY OF CARE
--- NOTE | 2021-10-19 07:34 | NUR ---
RN OPENING NOTE PATIENT IS IN BED ASLEEP BUT EASILY AROUSABLE. ALER, ORIENTED X 1. ON ROOM AIR.BREATHING NON LABORED SINUS RHYTHM ON E COMMERCE MARKETING MANAGER. NO SIGHNS OF DISTRESS LEFT ANTECUBITAL LINE INTACT AND PATENT. HD CATH ON RIGHT SUBCLAVIAN INTACT AND PATENT. DENIES PAIN, BREATHING UNLABORED AND NOT IN ANY FORM OF DISTRESS. BED IS LOCKED IN LOWEST POSITION, 3 SIDE RAILS UP, CALL LIGHT WITHIN REACH. WILL CONTINUE TO MONITOR THROUGHOUT SHIFT.
[2021-10-19] MEDS: PANTOPRAZOLE 40 MG TABLET.DR PO SCH (07:50)
--- NOTE | 2021-10-19 08:03 | NUR ---
PATIENT HAD o2 SAT 75% , PUT PATIENT ON O2 4l VIA N/C
[2021-10-19] MEDS: AMLODIPINE BESYLATE 5 MG TABLET PO SCH (09:08)
[2021-10-19] MEDS: SENNOSIDES 8.6 MG TABLET PO SCH (09:08)
[2021-10-19] MEDS: FERROUS SULFATE (325 MG) 325 MG/TAB TABLET PO SCH (09:08)
[2021-10-19] MEDS: hydrALAZINE HCL 25 MG TABLET PO SCH ×2 (09:09→12:16)
[2021-10-19] MEDS: DOCUSATE SODIUM 100 MG CAPSULE PO SCH (09:10)
[2021-10-19] MEDS: METOPROLOL TARTRATE 25 MG TABLET PO SCH (09:10)
[2021-10-19] MEDS: CALCITRIOL 0.25 MCG CAPSULE PO SCH (09:10)
[2021-10-19] MEDS: APIXABAN 2.5 MG TABLET PO SCH (09:11)
[2021-10-19 12:16] VITALS: BP 147/67
--- NOTE | 2021-10-19 14:04 | NUR ---
patient is at stable health condition , received in order to discharge patient from [facility] , peripheral IV line was removed , discharge instructions provided in written and verbally to the RN cytotechnologist supervisor of the custodial Patient discharged from [facility]
== END 2021-10-19 14:54 | DRG 640 ==
LOC: ER 20:39 → TELE1 22:39 → MEDSG1 10-17 16:30
PROVIDERS: ADMIT Nurse Practitioner Family; ATTEND Nurse Practitioner Acute Care
PROC: 5A1D70Z Performance of Urinary Filtration, Intermittent, Less than 6 Hours Per Day (ICD-10-PCS; principal; 2021-10-18)
DX: E87.70 Fluid overload, unspecified (principal); N18.6 End stage renal disease; U07.1 COVID-19; I13.2 Hypertensive heart and chronic kidney disease with heart failure and with stage 5 chronic kidney disease, or end stage renal disease; D68.69 Other thrombophilia; I50.9 Heart failure, unspecified; I16.0 Hypertensive urgency; D63.1 Anemia in chronic kidney disease; E78.5 Hyperlipidemia, unspecified; F03.90 Unspecified dementia, unspecified severity, without behavioral disturbance, psychotic disturbance, mood disturbance, and anxiety; K21.9 Gastro-esophageal reflux disease without esophagitis; M10.9 Gout, unspecified; Z90.49 Acquired absence of other specified parts of digestive tract; Z91.14 Patient's other noncompliance with medication regimen; E83.89 Other disorders of mineral metabolism; M20.42 Other hammer toe(s) (acquired), left foot; M20.41 Other hammer toe(s) (acquired), right foot; M21.612 Bunion of left foot; M21.611 Bunion of right foot; M21.40 Flat foot [pes planus] (acquired), unspecified foot; B35.1 Tinea unguium; L60.3 Nail dystrophy; S91.012A Laceration without foreign body, left ankle, initial encounter; X58.XXXA Exposure to other specified factors, initial encounter; Y92.129 Unspecified place in nursing home as the place of occurrence of the external cause; R41.9 Unspecified symptoms and signs involving cognitive functions and awareness; J98.8 Other specified respiratory disorders
CPT/HCPCS: 36415; 71045-TC; 74018; 80048-TC; 80076-TC; 83735-TC; 84100-TC; 85025-TC; 85378-TC; 86140-TC; 86706; 87081-TC; 87340; 90935-TC; C9803; G0378; J0360; J1644; J2405; J7030; J8597; U0003

== ENCOUNTER 2022-02-04 13:19 | Inpatient (IN) | payer MEDICARE, OTHER ==
[~2022-02-04] VITALS: Ht 152.4 cm; Wt 35.6 kg
[~2022-02-04 13:19] MED LIST changes: +ACET-2605 PO; +ALBU8.5H8 IH; +AMIN30LI2 PO; +APIX2.5T PO; +CLON0.1T PO; +DICL100G26 TP; -FOLI0.8T2 PO; -HYDR-4076 PO; -Hydrogel Dressing TP; +MENT71OI2 TP; -METO-295 PO; +NEUTRA-PHOS PO; +NITR0.4T48 SL; +NUT.237L67 PO; +ONDA-97 PO; +POLY17PO4 PO; -VITA1TAB20 PO
--- NOTE | 2022-02-04 13:35 | NUR ---
BIB RA [facility] FROM A [facility],SYNCOPAL EPISODE WHILE HAVING TREATMENT. PT WAS 15 MINUTE INTOHER TREATMENT UNTIL SHE HAD HER SYNCOPAL EPISODE. PORT ACCESS ON HER R CHEST. PT IS A&OX2. ATTACHED TO MONITOR. AWAITING MD ORDERS.
--- NOTE | 2022-02-04 13:43 | NUR ---
MOVE SHEET SUBMITTED.
--- NOTE | 2022-02-04 13:55 | NUR ---
IV ESTABLISHED L AC 20G. LABS DRAWN AND COLLECTED AT BEDSIDE
[2022-02-04 14:11] LABS: BASOPHILS % (AUTO) 0.5 % (0.0-2.0); EOSINOPHILS % (AUTO) 0.8 % (0.0-6.0); HEMATOCRIT 37 % (33-45); HEMOGLOBIN 11.5 g/dL (11.5-14.8); LYMPHOCYTES # (AUTO) 0.7 K/uL (0.8-4.8); LYMPHOCYTES % (AUTO) 11.7 % (20.0-44.0); MEAN CORPUSCULAR HGB CONC 31 g/dl (31.0-36.0); MEAN CORPUSCULAR VOLUME 95 fL (82-100); MONOCYTES # (AUTO) 0.3 K/uL (0.1-1.30); MONOCYTES % (AUTO) 5.2 % (2.0-12.0); NEUTROPHILS % (AUTO) 81.8 % (43.0-81.0); PLATELET COUNT (AUTO) 115 K/uL (150-450); RED BLOOD CELL COUNT(AUTO) 3.85 MIL/uL (4.0-5.2); WHITE BLOOD COUNT (AUTO) 6.1 K/uL (4.3-11.0)
--- NOTE | 2022-02-04 14:20 | NUR ---
dr gaona at bedside w/ pt w/ nurse leader
--- NOTE | 2022-02-04 14:29 | NUR ---
YARON [phone] DR. EMMANUEL WILL CALL FOR PEER TO PEER.
[2022-02-04 14:34] LABS: ALANINE AMINOTRANSFERASE 10 U/L (12-78); ALBUMIN 2.5 g/dL (3.4-5.0); ALKALINE PHOSPHATASE 94 U/L (46-116); ASPARTATE AMINOTRANSFERASE 20 U/L (15-37); BILIRUBIN,TOTAL 0.5 mg/dL (0.2-1.0); CALCIUM, SERUM 8.9 mg/dL (8.5-10.1); CARBON DIOXIDE 31 mmol/L (21-32); CHLORIDE 108 mmol/L (98-107); CREATININE 5.8 mg/dL (0.6-1.3); GLUCOSE 130 mg/dL (74-106); POTASSIUM 3.8 mmol/L (3.5-5.1); SODIUM SERUM 145 mmol/L (136-145); TOTAL PROTEIN, SERUM 5.8 g/dL (6.4-8.2); UREA NITROGEN, BLOOD 37 mg/dL (7-18)
--- NOTE | 2022-02-04 14:58 | NUR ---
IN AND OUT CATHTER PLACED, NO URINE OUTPUT, PT IS A DILYSIS PT, DR HENDRICKSON AWARE.
[2022-02-04] MEDS ORDERED: CYAN500T9 PO (15:00)
[2022-02-04] MEDS ORDERED: BISA10SU11 RC (15:00)
[2022-02-04] MEDS ORDERED: SUCR1ORA15 PO (15:00)
--- NOTE | 2022-02-04 15:24 | NUR ---
COVID TEST COLLECTED AND SENT
[2022-02-04] MEDS ORDERED: FUROSEMIDE 40 MG/4 ML VIAL IV ONE (15:30)
--- NOTE | 2022-02-04 15:31 | NUR ---
CALLED [facility] [phone] PATIENT ATTENDS [facility] [phone] ON MWF TREATMENT TODAY WAS < ONE HOUR. SHE IS ON HEPARIN PER CANDIDO.
[2022-02-04] MEDS ORDERED: ACETAMINOPHEN 325 MG TABLET PO PRN (17:30)
[2022-02-04] MEDS ORDERED: BISACODYL SUPP (10 MG) 10 MG/SUPP.RECT SUPP.RECT RC PRN (17:30)
[2022-02-04] MEDS ORDERED: CLONIDINE HCL 0.1 MG TABLET PO PRN (17:30)
[2022-02-04] MEDS ORDERED: ACETAMINOPHEN ES 500 MG TABLET PO PRN (17:30)
[2022-02-04] MEDS ORDERED: SUCRALFATE 1 G/10 ML UDC PO SCH (17:30)
[2022-02-04] MEDS ORDERED: Z GUARD REMEDY 4 OZ OINT TP PRN (18:00)
[2022-02-04] MEDS ORDERED: ZOLPIDEM TARTRATE 5 MG TABLET PO PRN (18:00)
[2022-02-04] MEDS ORDERED: ONDANSETRON HCL/PF 4 MG/2 ML VIAL IVP PRN (18:00)
[2022-02-04] MEDS ORDERED: HYDROCODONE/APAP 5/325MG TABLET PO PRN (18:00)
[2022-02-04] MEDS ORDERED: MORPHINE SULFATE INJ 2 MG/ML DISP.SYRIN IV PRN (18:00)
--- NOTE | 2022-02-04 18:41 | NUR ---
GOT BED ASSIGNMENT > CHANGE OF SHIFT 325-2
[2022-02-04] MEDS ORDERED: ALBUTEROL FS 2.5 MG/0.5 ML VIAL.NEB IH PRN (19:30)
[2022-02-04] MEDS ORDERED: hydrALAZINE HCL IV 20 MG VIAL ONE (19:34)
[2022-02-04] MEDS: hydrALAZINE HCL IV 20 MG VIAL IV PRN (19:44)
--- NOTE | 2022-02-04 19:45 | NUR ---
RECEIVED REPORT FROM EDIS STEWARD. PT CAME EARLIER WITH CC OF [facility]OPE IN THE MIDDLE OF HD. PATIENT IS ALBANIAN SPEAKING. WITH HD ACCESS ON RIGHT CHEST. WITH IV CANNULA G20 ON LEFT AC. ATTACHED TO MONITOR. VITALS CHECKED.
[2022-02-04 20:00] VITALS: BP 138/75
--- NOTE | 2022-02-04 20:03 | NUR ---
REPORT GIVEN TO RN ARMAND
[2022-02-04 20:30] VITALS: BP 138/75
--- NOTE | 2022-02-04 20:45 | NUR ---
BRANCH RETAIL EXECUTIVEWAFER FABRICATOR NOTES RECEIVED PATIENT FROM ED [facility]IA [facility] AT 2020 UNDER THE CARE OF EFRAIN MONK NP WITH DX OF NSTEMI AND HYPERTENSIVE URGENCY. PATIENT IS A/O X1, URDU SPEAKING. PATIENT IS A POOR HISTORIAN, ADMISSION INFO TAKEN FROM MEDICAL RECORDS. BREATHING EVEN AND NON-LABORED ON ROOM AIR. NOT IN APPARENT DISTRESS. DENIES PAIN AT THIS TIME. HAS LEFT ANTECUBITAL IV ACCESS #20G AND SALINE LOCKED. NO S/S OF INFILTRATION NOTED. HAS RIGHT CHEST WALL HD PERMA CATH. DRESSING C/D/I. SKIN ASSESSMENT DONE. ALL BELONGINGS ACCOUNTED FOR. ORIENTED PATIENT TO ROOM AND STAFF. SAFETY PRECAUTIONS IN PLACE: BED LOW AND LOCKED, SIDE RAILS UP X2, CALL LIGHT WITHIN REACH. WILL CONTINUE POC.
[2022-02-04] MEDS: METOPROLOL TARTRATE 25 MG TABLET PO SCH (21:25)
[2022-02-04] MEDS: PANTOPRAZOLE 40 MG TABLET.DR PO SCH (21:25)
[2022-02-04] MEDS: ATORVASTATIN 40 MG TABLET PO SCH (21:26)
--- NOTE | 2022-02-04 21:30 | NUR ---
NURSES SUPERVISOR NOTES PATIENT SPIT OUT THE MEDS WHEN I CRUSHED IT. TOOK ANOTHER SET FROM [employer], PATIENT TOOK THE MEDS WHOLE. NO PROBLEM SWALLOWING.
[2022-02-05] VITALS: BP 156/75
[2022-02-05 04:00] VITALS: BP 125/53
--- NOTE | 2022-02-05 06:43 | NUR ---
CORPORATE BOND TRADER CLOSING NOTES PATIENT STABLE THROUGHOUT THE SHIFT. NO RESPIRATORY OR CARDIAC DISTRESS NOTED. ON TELE MONITOR READING SINUS RHYTHM AT 63 BPM. SAFETY PRECAUTIONS MAINTAINED. ENDORSED TO EDIS MARX.
--- NOTE | 2022-02-05 07:39 | NUR ---
RN NOTE RECEIVED PT RESTING IN BED, NOT IN DISTRESS. IN ROOM AIR. NO COMPLAINTS OF PAIN AND DISCOMFORT. WITH IV ACCESS ON LAC G20. NO IVF. PT NOTED WITH RCW PERMACATH. SAFETY MAINTAINED. WILL CONTINUE TO MONITOR.
[2022-02-05 07:42] LABS: BASOPHILS % (AUTO) 0.8 % (0.0-2.0); EOSINOPHILS % (AUTO) 1.9 % (0.0-6.0); LYMPHOCYTES # (AUTO) 1.2 K/uL (0.8-4.8); MEAN CORPUSCULAR HGB CONC 33 g/dl (31.0-36.0); MONOCYTES # (AUTO) 0.3 K/uL (0.1-1.30); NEUTROPHILS % (AUTO) 55.6 % (43.0-81.0); WHITE BLOOD COUNT (AUTO) 3.7 K/uL (4.3-11.0)
[2022-02-05 07:46] LABS: CARBON DIOXIDE 29 mmol/L (21-32); CHLORIDE 109 mmol/L (98-107); GLUCOSE 79 mg/dL (74-106); MAGNESIUM 1.8 mg/dL (1.8-2.4); PHOSPHORUS 4.5 mg/dL (2.5-4.9); POTASSIUM 3.5 mmol/L (3.5-5.1); SODIUM SERUM 144 mmol/L (136-145); UREA NITROGEN, BLOOD 40 mg/dL (7-18)
[2022-02-05 08:00] VITALS: BP 160/71
[2022-02-05 08:11] LABS: HEMATOCRIT 29 % (33-45); HEMOGLOBIN 9.6 g/dL (11.5-14.8); LYMPHOCYTES % (AUTO) 33.1 % (20.0-44.0); MEAN CORPUSCULAR VOLUME 93 fL (82-100); MONOCYTES % (AUTO) 8.6 % (2.0-12.0); NEUTROPHILS # (AUTO) 2.1 K/uL (1.8-8.9); PLATELET COUNT (AUTO) 112 K/uL (150-450); RED BLOOD CELL COUNT(AUTO) 3.15 MIL/uL (4.0-5.2)
[2022-02-05 08:30] LABS: IRON, SERUM 25 ug/dl (50-175); TOTAL IRON BINDING CAPACITY 112 ug/dl (250-450)
--- NOTE | 2022-02-05 08:58 | NUR ---
RN NOTE CRITICAL LAB RESULTS TROPONIN 89. CARDIO MD MADE AWARE, NO CHANGES ORDERED.
[2022-02-05] MEDS: CALCITRIOL 0.25 MCG CAPSULE PO SCH (09:00)
[2022-02-05] MEDS: NEPRO VAN 237 ML CAN PO SCH (09:00)
[2022-02-05] MEDS: METOPROLOL TARTRATE 25 MG TABLET PO SCH ×3 (09:00→21:35)
[2022-02-05] MEDS: DOCUSATE SODIUM 100 MG CAPSULE PO SCH ×2 (09:00→17:00)
[2022-02-05] MEDS: ASPIRIN 81 MG TAB.CHEW PO SCH (09:00)
[2022-02-05] MEDS: AMLODIPINE BESYLATE 5 MG TABLET PO SCH (09:00)
[2022-02-05] MEDS: SENNOSIDES 8.6 MG TABLET PO SCH ×2 (09:00→17:00)
[2022-02-05] MEDS: FERROUS SULFATE (325 MG) 325 MG/TAB TABLET PO SCH ×2 (09:00→17:00)
[2022-02-05] MEDS: PANTOPRAZOLE 40 MG TABLET.DR PO SCH ×3 (09:00→21:35)
[2022-02-05] MEDS: CYANOCOBALAMIN 500 MCG TABLET PO SCH (09:00)
[2022-02-05] MEDS: POLYETHYLENE GLYCOL 3350 17 GM POWD.PACK PO SCH (09:00)
[2022-02-05 10:00] LABS: FERRITIN 1611 ng/mL (8-388)
[2022-02-05] MEDS: hydrALAZINE HCL IV 20 MG VIAL IV PRN (10:51)
--- NOTE | 2022-02-05 10:51 | NUR ---
RN NOTE PT REFUSED AM MEDS. PMD MADE AWARE. BP NOTED 160/71 P-66. PRN IV HYDRALAZINE 10MG GIVEN. WILL CONT TO MONITOR.
[2022-02-05] MEDS: SUCRALFATE 1 G TABLET PO SCH ×3 (12:00→21:46)
--- NOTE | 2022-02-05 12:39 | NUR ---
WOUND CARE CONSULT: PT PRESENTS WITH VERY FRAGILE SKIN WITH AREAS OF DISCOLORATION AND SACRAL STAGE 3 PRESSURE ULCER WITH SURROUNDING DEEP TISSUE INJURY, PRESENT ON ADMISSION. PT NOTED TO BE VERY THIN AND BONY. DR HERRERA CALLED FOR SURGICAL CONSULT. DISCUSSED SKIN PROTECTION WITH NURSING STAFF. IN AGREEMENT WITH PLAN OF CARE. Addendum: 02/05/22 at 1241 by HANNAH REYES WNDNU Amended: Links added.
[2022-02-05 16:00] VITALS: BP 120/50
--- NOTE | 2022-02-05 18:50 | NUR ---
RN NOTE PT RESTING IN BED, NOT IN DISTRESS. IN ROOM AIR. NO COMPLAINTS OF PAIN AND DISCOMFORT. WITH IV ACCESS ON LAC G20. NO IVF. PT NOTED WITH RCW PERMACATH. SAFETY MAINTAINED. WILL CONTINUE TO MONITOR. PT TO START ULTRA FILTRATION. WILL ENDORSE TO NEXT SHIFT.
--- NOTE | 2022-02-05 19:30 | NUR ---
RECEIVED PT RESTING IN BED, A/O X1. NOT IN DISTRESS. IN ROOM AIR. NO COMPLAINTS OF PAIN AND DISCOMFORT. ON TELE MONITOR. WITH IV ACCESS ON LAC G20 ON SL, WITH RCW PERMACATH. SAFETY MEASURES IN PLACE. HOB ELEVATED, BED LOCKED IN LOWEST POSITION, SIDE RAILS UP X2, BED ALARM ON, CALL LIGHT WITHIN REACH. WILL CONTINUE PLAN OF CARE.
[2022-02-05 20:00] VITALS: BP 153/59
[2022-02-05] MEDS ORDERED: ALBUMIN 25% 25 GM in PREMIX 1 EA IV PRN (20:00)
--- NOTE | 2022-02-05 20:05 | NUR ---
ONGOING HD. BP 103/59. NOTIFIED. RECEIVED ORDER FOR ALBUMIN 25% 100ML TO INFUSE AT 200ML/HR PRN FOR HD. WILL CARRY OUT ORDERED AND NEEDED.
[2022-02-05] MEDS: HYDROGEL DRESSING 90 GM TUBE TP SCH (20:30)
[2022-02-05] MEDS: ATORVASTATIN 40 MG TABLET PO SCH (21:46)
--- NOTE | 2022-02-05 22:00 | NUR ---
Pt's bp 150/58, was able to tolerate HD procedure well with an output of 2.1L.
[2022-02-06] VITALS: BP 159/60
[2022-02-06 04:00] VITALS: BP 167/64
--- NOTE | 2022-02-06 06:17 | NUR ---
PT SLEEPING IN BED, EASILY AWAKEN BY TOUCH OR BY CALLING HER NAME. A/O X1. NOT IN DISTRESS. IN ROOM AIR. NO COMPLAINTS OF PAIN AND DISCOMFORT. ON TELE MONITOR. WITH RCW PERMACATH. DUE MEDS OFFERED BUT PT REFUSED. NEEDS ATTENDED. SAFETY MEASURES IMAINTAINED. HOB SLIGHTLY ELEVATED, BED LOCKED IN LOWEST POSITION, SIDE RAILS UP X2, BED ALARM ON, CALL LIGHT WITHIN REACH. WILL ENDORSE TO NEXT NURSE ON DUTY FOR CONTINUITY OF CARE.
--- NOTE | 2022-02-06 06:51 | NUR ---
LAC G#20 IV ACCESS PULLED OUT BY PT. APPLIED PRESSURE AND PLACED DRESSING ON SITE. CHARGE NURSE INFORMED, REINSERTED IV LINE ON LT FOREARM G#22, PATENT AND INTACT. PT TOLERATED PROCEDURE WELL.
--- NOTE | 2022-02-06 07:27 | NUR ---
RN OPENING NOTE RECEIVED PATIENT SLEEPING IN BED, EASILY AROUSED. PATIENT IS A/O X1, VERBALLY RESPONSIVE, ABLE TO ANSWER SIMPLE QUESTIONS. ON ROOM AIR, TOLERATING WELL. NO SOB NOTED. BREATHING EVEN AND UNLABORED. NOTED WITH IV ACCESS ON LEFT FORE ARM #22G, INTACT AND PATENT, SALINE LOCKED. ON TELE MONITOR SHOWING SINUS RHYTHM, HR @64. DENIES ANY PAIN AT THIS TIME. SAFETY MEASURE IN PLACE. BED IN LOWEST AND LOCKED POSITION, SIDE RAILS UP X2, CALL LIGHT PLACED WITHIN EASY REACH. WILL CONTINUE TO MONITOR PATIENT.
[2022-02-06 08:00] VITALS: BP 161/75
[2022-02-06 08:38] LABS: BASOPHILS % (AUTO) 1.1 % (0.0-2.0); EOSINOPHILS % (AUTO) 1.5 % (0.0-6.0); HEMATOCRIT 31 % (33-45); HEMOGLOBIN 9.7 g/dL (11.5-14.8); LYMPHOCYTES % (AUTO) 26.6 % (20.0-44.0); MEAN CORPUSCULAR HGB CONC 32 g/dl (31.0-36.0); MEAN CORPUSCULAR VOLUME 95 fL (82-100); MONOCYTES # (AUTO) 0.3 K/uL (0.1-1.30); MONOCYTES % (AUTO) 6.6 % (2.0-12.0); NEUTROPHILS # (AUTO) 2.5 K/uL (1.8-8.9); NEUTROPHILS % (AUTO) 64.2 % (43.0-81.0); PLATELET COUNT (AUTO) 127 K/uL (150-450); RED BLOOD CELL COUNT(AUTO) 3.22 MIL/uL (4.0-5.2); WHITE BLOOD COUNT (AUTO) 3.8 K/uL (4.3-11.0)
[2022-02-06] MEDS: CYANOCOBALAMIN 500 MCG TABLET PO SCH (08:46)
[2022-02-06] MEDS: DOCUSATE SODIUM 100 MG CAPSULE PO SCH ×2 (08:46→16:34)
[2022-02-06] MEDS: POLYETHYLENE GLYCOL 3350 17 GM POWD.PACK PO SCH (08:46)
[2022-02-06] MEDS: FERROUS SULFATE (325 MG) 325 MG/TAB TABLET PO SCH ×2 (08:47→16:34)
[2022-02-06] MEDS: SENNOSIDES 8.6 MG TABLET PO SCH ×2 (08:47→16:34)
[2022-02-06] MEDS: CALCITRIOL 0.25 MCG CAPSULE PO SCH (08:47)
[2022-02-06] MEDS: ASPIRIN 81 MG TAB.CHEW PO SCH (08:47)
[2022-02-06] MEDS: SUCRALFATE 1 G TABLET PO SCH ×4 (08:47→21:06)
[2022-02-06] MEDS: ISOSORBIDE DINITRATE (20MG) 20 MG TABLET PO SCH ×2 (08:51→16:40)
[2022-02-06] MEDS: PANTOPRAZOLE 40 MG TABLET.DR PO SCH ×2 (08:51→21:06)
[2022-02-06] MEDS: AMLODIPINE BESYLATE 5 MG TABLET PO SCH (08:51)
[2022-02-06 08:52] LABS: CALCIUM, SERUM 8.7 mg/dL (8.5-10.1); CARBON DIOXIDE 24 mmol/L (21-32); CHLORIDE 108 mmol/L (98-107); CREATININE 6.9 mg/dL (0.6-1.3); GLUCOSE 57 mg/dL (74-106); POTASSIUM 3.7 mmol/L (3.5-5.1); SODIUM SERUM 145 mmol/L (136-145); UREA NITROGEN, BLOOD 45 mg/dL (7-18)
[2022-02-06] MEDS: METOPROLOL TARTRATE 25 MG TABLET PO SCH ×2 (08:52→21:07)
[2022-02-06] MEDS: hydrALAZINE HCL 50 MG TABLET PO SCH ×3 (08:52→16:39)
[2022-02-06] MEDS: NEPRO VAN 237 ML CAN PO SCH (08:52)
[2022-02-06] MEDS: HYDROGEL DRESSING 90 GM TUBE TP SCH (08:53)
[2022-02-06 08:58] LABS: ALANINE AMINOTRANSFERASE 6 U/L (12-78); ALBUMIN 3.1 g/dL (3.4-5.0); ALKALINE PHOSPHATASE 67 U/L (46-116); ASPARTATE AMINOTRANSFERASE 13 U/L (15-37); BILIRUBIN,TOTAL 0.6 mg/dL (0.2-1.0); TOTAL PROTEIN, SERUM 5.7 g/dL (6.4-8.2)
[2022-02-06 12:00] VITALS: BP 148/68
--- NOTE | 2022-02-06 13:00 | NUR ---
RN NOTE HYDRALAZINE 50 MG WITHHELD, PATIENT SCHEDULED FOR DIALYSIS.
[2022-02-06 16:00] VITALS: BP 148/78
--- NOTE | 2022-02-06 17:45 | NUR ---
RN NOTE HEMODIALYSIS STARTED BY HD NURSE LORENZO Martinez
--- NOTE | 2022-02-06 18:50 | NUR ---
RN CLOSING NOTE PATIENT RESTING IN BED. HEMODIALYSIS ONGOING. NO SIGNS OF ACUTE RESPIRATORY DISTRESS NOTED. STABLE ON ROOM AIR, NO SOB NOTED. BREATHING EVEN AND UNLABORED. IV ACCESS ON LEFT FORE ARM #22G, INTACT AND PATENT, SALINE LOCKED. REMIANS ON TELE MONITOR READING SINUS RHYTHM, HR @61. DENIES ANY PAIN AT THIS TIME. ALL DUE MEDS GIVEN, TAKEN WELL. SAFETY MEASURE MAINTAINED. BED IN LOWEST AND LOCKED POSITION, SIDE RAILS UP X2, CALL LIGHT PLACED WITHIN EASY REACH. WILL ENDORSE TO NEXT SHIFT FOR CONTINUITY OF CARE.
--- NOTE | 2022-02-06 19:30 | NUR ---
FILLER AND TRIMMER OPENING NOTE RECEIVED PT AWAKE IN BED. HD ONGOING AT BEDSIDE. A/O X1. PT STABLE ON ROOM AIR. NO SOB OR S/S OF RESPIRATORY DISTRESS. BREATHING EVEN AND UNLABORED. ON EXTERNAL SOLE DYER READING SR 65 BPM. IV ACCESS LFA 22G SL, INTACT AND PATENT. WITH RCW PERMACATH. SAFETY PRECAUTIONS IN PLACE. BED IN LOWEST LOCKED POSITION, HOB ELEVATED, SIDE RAILS UP X3, AND CALL LIGHT AND TABLE WITHIN REACH. ALL NEEDS MET AT THIS TIME.
[2022-02-06 20:00] VITALS: BP 147/59
[2022-02-06] MEDS: ATORVASTATIN 40 MG TABLET PO SCH (21:06)
--- NOTE | 2022-02-06 21:08 | NUR ---
RN NOTE PT COMPLAINED OF GENERALIZED PAIN 5/10. ADMINISTERED NORCO 5-325 MG FOR MODERATE PAIN ORDERED. MADE COMFORTABLE IN BED. ALL NEEDS MET AT THIS TIME.
[2022-02-07] VITALS (7 sets, daily range): BP systolic 116–154; BP diastolic 52–65
--- NOTE | 2022-02-07 06:36 | NUR ---
RN HYPERBARIC CLOSING NOTE PT AWAKE IN BED. A/O X1. PT STABLE ON ROOM AIR. NO SOB OR S/S OF RESPIRATORY DISTRESS. BREATHING EVEN AND UNLABORED. ON EXTERNAL IT PROGRAM AUDITOR READING SB 53 BPM. IV ACCESS LFA 22G SL, INTACT AND PATENT. WITH RCW PERMACATH. ALL DUE MEDS GIVEN ORDERED. WOUND TREATMENT RENDERED ORDERED. TURNED AND REPOSITIONED Q2H. SAFETY PRECAUTIONS IN PLACE AT ALL TIMES. BED IN LOWEST LOCKED POSITION, HOB ELEVATED, SIDE RAILS UP X3, AND CALL LIGHT AND TABLE WITHIN REACH. ALL NEEDS MET AT THIS TIME AND WILL ENDORSE TO ONCOMING NURSE FOR LINO.
--- NOTE | 2022-02-07 07:21 | NUR ---
MANAGER PLANT OPENING NOTES RECEIVED PT AWAKE IN BED IN NO ACUTE SIGNS OF DISTRESS. HOB ELEVATED. A/O X1. LAO SPEAKING. ON ROOM AIR, BREATHING EVEN AND UNLABORED. ON EXTERNAL KOSHER SEALER WITH CURRENT READING OF NSR 63 BPM. IV ACCESS ON LFA #22G SL, INTACT AND PATENT. PT WITH WITH RCW PERMACATH IN PLACE WITH DRESSING C/D/I. SAFETY MEASURES IN PLACE: BED IN LOWEST LOCKED POSITION, HOB ELEVATED, SIDE RAILS UP X3, CALL LIGHT AND TRAY TABLE WITHIN REACH. WILL CONTINUE TO MONITOR PT ACCORDINGLY.
[2022-02-07 07:37] LABS: BASOPHILS % (AUTO) 0.5 % (0.0-2.0); EOSINOPHILS % (AUTO) 2.8 % (0.0-6.0); HEMATOCRIT 28 % (33-45); LYMPHOCYTES # (AUTO) 1.3 K/uL (0.8-4.8); LYMPHOCYTES % (AUTO) 34.6 % (20.0-44.0); MEAN CORPUSCULAR HGB CONC 33 g/dl (31.0-36.0); MEAN CORPUSCULAR VOLUME 94 fL (82-100); MONOCYTES # (AUTO) 0.5 K/uL (0.1-1.30); MONOCYTES % (AUTO) 12.7 % (2.0-12.0); NEUTROPHILS # (AUTO) 1.8 K/uL (1.8-8.9); NEUTROPHILS % (AUTO) 49.4 % (43.0-81.0); PLATELET COUNT (AUTO) 109 K/uL (150-450); RED BLOOD CELL COUNT(AUTO) 2.95 MIL/uL (4.0-5.2); WHITE BLOOD COUNT (AUTO) 3.7 K/uL (4.3-11.0)
[2022-02-07] MEDS: SUCRALFATE 1 G TABLET PO SCH ×4 (07:44→21:15)
[2022-02-07 07:50] LABS: ALANINE AMINOTRANSFERASE 6 U/L (12-78); ALBUMIN 2.7 g/dL (3.4-5.0); ALKALINE PHOSPHATASE 77 U/L (46-116); ASPARTATE AMINOTRANSFERASE 14 U/L (15-37); BILIRUBIN,TOTAL 0.6 mg/dL (0.2-1.0); CALCIUM, SERUM 8.2 mg/dL (8.5-10.1); CARBON DIOXIDE 28 mmol/L (21-32); CHLORIDE 106 mmol/L (98-107); CREATININE 5.6 mg/dL (0.6-1.3); GLUCOSE 80 mg/dL (74-106); POTASSIUM 3.7 mmol/L (3.5-5.1); SODIUM SERUM 142 mmol/L (136-145); TOTAL PROTEIN, SERUM 5.3 g/dL (6.4-8.2); UREA NITROGEN, BLOOD 34 mg/dL (7-18)
[2022-02-07] MEDS: POLYETHYLENE GLYCOL 3350 17 GM POWD.PACK PO SCH ×2 (08:22→08:31)
[2022-02-07] MEDS: CYANOCOBALAMIN 500 MCG TABLET PO SCH (08:23)
[2022-02-07] MEDS: FERROUS SULFATE (325 MG) 325 MG/TAB TABLET PO SCH ×2 (08:23→17:00)
[2022-02-07] MEDS: DOCUSATE SODIUM 100 MG CAPSULE PO SCH ×2 (08:23→17:00)
[2022-02-07] MEDS: AMLODIPINE BESYLATE 5 MG TABLET PO SCH (08:23)
[2022-02-07] MEDS: CALCITRIOL 0.25 MCG CAPSULE PO SCH (08:23)
[2022-02-07] MEDS: hydrALAZINE HCL 50 MG TABLET PO SCH ×3 (08:23→17:00)
[2022-02-07] MEDS: PANTOPRAZOLE 40 MG TABLET.DR PO SCH ×2 (08:23→21:15)
[2022-02-07] MEDS: SENNOSIDES 8.6 MG TABLET PO SCH ×2 (08:24→17:00)
[2022-02-07] MEDS: ISOSORBIDE DINITRATE (20MG) 20 MG TABLET PO SCH ×2 (08:24→17:00)
[2022-02-07] MEDS: METOPROLOL TARTRATE 25 MG TABLET PO SCH ×2 (08:24→21:15)
[2022-02-07] MEDS: ASPIRIN 81 MG TAB.CHEW PO SCH (08:24)
[2022-02-07] MEDS: NEPRO VAN 237 ML CAN PO SCH ×3 (08:25→17:05)
[2022-02-07] MEDS: HYDROGEL DRESSING 90 GM TUBE TP SCH (09:12)
--- NOTE | 2022-02-07 17:05 | NUR ---
RN NOTES PATIENT REFUSED ALL HER AFTERNOON MEDICATIONS DESPITE ENCOURAGEMENT.
--- NOTE | 2022-02-07 18:32 | NUR ---
TELE-RN CLOSING NOTES PT IN BED ASLEEP AT THIS TIME, EASILY AROUSABLE. HOB ELEVATED. A/O X1-2. FRENCH SPEAKING. ON ROOM AIR, BREATHING EVEN AND UNLABORED, NO SOB NOTED DURING SHIFT. ON EXTERNAL DIRECT SERVICE PROVIDER WITH CURRENT READING OF NSR 64 BPM, NO C/O CARDIAC DISTRESS VOICED. IV ACCESS ON LFA #22G SL, INTACT AND PATENT. RCW PERMACATH IN PLACE WITH DRESSING C/D/I. PT TURNED AND REPOSITIONED Q 2HRS AND PRN. ALL NEEDS AND CARE PROVIDED WELL. SAFETY MEASURES IN PLACE: BED IN LOWEST LOCKED POSITION, HOB KEPT ELEVATED, SIDE RAILS UP X3, CALL LIGHT AND TRAY TABLE WITHIN REACH. WILL ENDORSE TO PRINTED CIRCUIT BOARD DRAFTER NURSE FOR LINO
--- NOTE | 2022-02-07 19:15 | NUR ---
RN NOTE PATIENT IN BED, ON SEMI SANTOS'S, AO X 2-3, LUX[place]OURG[place] SPEAKING ONLY, IN NO ACUTE DISTRESS, SATURATION AT 98% ON ROOM AIR, SR ON THE MONITOR, HR IS 71. IV LINE AT LFA 22G PATENT AND FLUSHING WELL, SALINE LOCKED. SAFETY MEASURES IN PLACE, HOB ELEVATED, BED IS LOCKED AND AT LOWEST POSITION, CALL LIGHT WITHIN REACH OF PATIENT. WILL CONT TO MONITOR AND REASSESS.
[2022-02-07] MEDS: ATORVASTATIN 40 MG TABLET PO SCH (21:15)
[2022-02-08] VITALS (7 sets, daily range): BP systolic 103–153; BP diastolic 56–72
[2022-02-08] MEDS: SUCRALFATE 1 G TABLET PO SCH ×3 (06:53→16:58)
[2022-02-08 06:54] LABS: BASOPHILS % (AUTO) 0.8 % (0.0-2.0); HEMATOCRIT 26 % (33-45); HEMOGLOBIN 8.5 g/dL (11.5-14.8); LYMPHOCYTES # (AUTO) 0.9 K/uL (0.8-4.8); LYMPHOCYTES % (AUTO) 24.9 % (20.0-44.0); MEAN CORPUSCULAR HGB CONC 33 g/dl (31.0-36.0); MEAN CORPUSCULAR VOLUME 94 fL (82-100); MONOCYTES # (AUTO) 0.3 K/uL (0.1-1.30); MONOCYTES % (AUTO) 6.8 % (2.0-12.0); NEUTROPHILS # (AUTO) 2.4 K/uL (1.8-8.9); NEUTROPHILS % (AUTO) 65.5 % (43.0-81.0); PLATELET COUNT (AUTO) 100 K/uL (150-450); WHITE BLOOD COUNT (AUTO) 3.7 K/uL (4.3-11.0)
--- NOTE | 2022-02-08 07:18 | NUR ---
LOIN PULLER OPENING NOTES RECEIVED PT AWAKE IN BED WITH ONGOING HEMODIALYSIS VIA RCW PERMACATHETER. PT IS A/O X1. YI SPEAKING, DENIES PAIN OR ANY DISCOMFORTS AT THIS TIME. ON ROOM AIR, BREATHING EVEN AND UNLABORED. ON TELE- MONITOR WITH CURRENT READING OF NSR, HR 81 BPM. IV ACCESS ON LFA #22G SL, INTACT AND PATENT. SAFETY MEASURES IN PLACE: BED IN LOWEST LOCKED POSITION, HOB ELEVATED, SIDE RAILS UP X3, CALL LIGHT AND TRAY TABLE WITHIN REACH. WILL CONTINUE TO MONITOR PT
[2022-02-08 07:38] LABS: ALANINE AMINOTRANSFERASE 6 U/L (12-78); ALBUMIN 2.4 g/dL (3.4-5.0); ALKALINE PHOSPHATASE 119 U/L (46-116); ASPARTATE AMINOTRANSFERASE 16 U/L (15-37); BILIRUBIN,TOTAL 0.4 mg/dL (0.2-1.0); CALCIUM, SERUM 7.9 mg/dL (8.5-10.1); CARBON DIOXIDE 31 mmol/L (21-32); CHLORIDE 106 mmol/L (98-107); CREATININE 4.4 mg/dL (0.6-1.3); GLUCOSE 97 mg/dL (74-106); POTASSIUM 3.4 mmol/L (3.5-5.1); SODIUM SERUM 142 mmol/L (136-145); TOTAL PROTEIN, SERUM 4.8 g/dL (6.4-8.2); UREA NITROGEN, BLOOD 32 mg/dL (7-18)
[2022-02-08] MEDS: NEPRO VAN 237 ML CAN PO SCH ×2 (08:07→17:02)
[2022-02-08] MEDS: hydrALAZINE HCL 50 MG TABLET PO SCH ×3 (08:07→16:58)
[2022-02-08] MEDS: METOPROLOL TARTRATE 25 MG TABLET PO SCH (08:08)
[2022-02-08] MEDS: ISOSORBIDE DINITRATE (20MG) 20 MG TABLET PO SCH ×2 (08:08→16:58)
--- NOTE | 2022-02-08 08:10 | NUR ---
RN NOTES PT ON ONGOING HEMODIALYSIS AT THIS TIME. DIALYSIS NURSE EVELIO SAID TO HOLD ALL BLOOD PRESSURE MEDICATIONS THIS MORNING.
[2022-02-08] MEDS: AMLODIPINE BESYLATE 5 MG TABLET PO SCH (08:31)
[2022-02-08] MEDS: CALCITRIOL 0.25 MCG CAPSULE PO SCH (08:57)
[2022-02-08] MEDS: DOCUSATE SODIUM 100 MG CAPSULE PO SCH ×2 (08:57→16:59)
[2022-02-08] MEDS: CYANOCOBALAMIN 500 MCG TABLET PO SCH (08:57)
[2022-02-08] MEDS: PANTOPRAZOLE 40 MG TABLET.DR PO SCH (08:57)
[2022-02-08] MEDS: FERROUS SULFATE (325 MG) 325 MG/TAB TABLET PO SCH ×2 (08:57→16:58)
[2022-02-08] MEDS: ASPIRIN 81 MG TAB.CHEW PO SCH (08:57)
[2022-02-08] MEDS: POLYETHYLENE GLYCOL 3350 17 GM POWD.PACK PO SCH (08:57)
[2022-02-08] MEDS: SENNOSIDES 8.6 MG TABLET PO SCH ×2 (08:58→16:59)
--- NOTE | 2022-02-08 09:12 | NUR ---
RN NOTES PT JUST COMPLETED HD AND TOLERATED PROCEDURE WITH 1 LITER OUT PER DIALYSIS NURSE EVELIO. S/P V/S: BP 122/60, P 79, R 18., T 97.7F.
[2022-02-08] MEDS: HYDROGEL DRESSING 90 GM TUBE TP SCH (09:19)
--- NOTE | 2022-02-08 11:55 | NUR ---
RN NOTES RAPID COVID-19 ANTIGEN SWAB DONE. SPECIMEN SENT TO LAB. WILL F/U RESULTS
--- NOTE | 2022-02-08 18:40 | NUR ---
RN NOTES PT FOR D/C TO [facility], P/U TIME IS SUPPOSEDLY 1800. CALLED [facility] CALL A CAR AT [place] [phone] WHY TRANSPORTATION IS DELAYED, SPOKED TO PATEL AND STATED THAT TRANSPORTATION WILL COME IN 15 MINUTES FROM THIS TIME.
--- NOTE | 2022-02-08 19:03 | NUR ---
RN DISCHARGED NOTES PT DISCHARGED TO [facility] IN STABLE CONDITION. A/O X1-2. GREENLANDIC SPEAKING. WHEELCHAIR AND ALL OTHER BELONGINGS ACCOUNTED FOR. PT ON ROOM AIR, TOLERATING WELL WITH NO ACUTE RESPIRATORY DISTRESS NOTED. PHOTOS OF SKIN ISSUES TAKEN AND FILED ON HER CHART. IV ACCESS ON LFA G#2O REMOVED WITH NO ACTIVE BLEEDING NOTED, DRY PRESSURE DRESSING APPLIED AT SITE. RCW PERMA-CATHETER IN PLACE WITH DRESSING CD/I. CALLED AND REPORT GIVEN TO PAOLONIA RUIZ OF [facility] EARLIER AND VERBALIZED UNDERSTANDING. PT HAS NO RELATIVE OR NEXT OF KIN ON FILE. TELE-BOX HANDED TO POLO COACHBELEN PEREZ. PT LEFT UNIT AT 1900 VIA GURNEY ACCOMPANIED BY 2 STAFF FROM [facility]. MD AND CHARGE NURSE AWARE OF DISCHARGE.
== END 2022-02-08 19:14 | DRG 280 ==
LOC: ER 13:40 → TELE 19:06
PROVIDERS: ADMIT Nurse Practitioner Acute Care; ATTEND Nurse Practitioner Acute Care
PROC: 5A1D70Z Performance of Urinary Filtration, Intermittent, Less than 6 Hours Per Day (ICD-10-PCS; principal; 2022-02-05)
DX: I13.2 Hypertensive heart and chronic kidney disease with heart failure and with stage 5 chronic kidney disease, or end stage renal disease (principal); I21.4 Non-ST elevation (NSTEMI) myocardial infarction; E43 Unspecified severe protein-calorie malnutrition; N18.6 End stage renal disease; I50.33 Acute on chronic diastolic (congestive) heart failure; G93.40 Encephalopathy, unspecified; F03.94 Unspecified dementia, unspecified severity, with anxiety; Z68.1 Body mass index [BMI] 19.9 or less, adult; R64 Cachexia; J98.11 Atelectasis; I16.0 Hypertensive urgency; G90.8 Other disorders of autonomic nervous system; E78.00 Pure hypercholesterolemia, unspecified; Z99.2 Dependence on renal dialysis; I25.10 Atherosclerotic heart disease of native coronary artery without angina pectoris; I25.2 Old myocardial infarction; K21.9 Gastro-esophageal reflux disease without esophagitis; M89.8X9 Other specified disorders of bone, unspecified site; Z79.899 Other long term (current) drug therapy; Z86.16 Personal history of COVID-19; Z91.14 Patient's other noncompliance with medication regimen; E21.3 Hyperparathyroidism, unspecified; M10.9 Gout, unspecified; D64.9 Anemia, unspecified; S31.000A Unspecified open wound of lower back and pelvis without penetration into retroperitoneum, initial encounter; X58.XXXA Exposure to other specified factors, initial encounter; Y93.89 Activity, other specified; Y92.129 Unspecified place in nursing home as the place of occurrence of the external cause
CPT/HCPCS: 36415; 71045-TC; 80048-TC; 80053-TC; 82728-TC; 83540-TC; 83735-TC; 83880; 84100-TC; 84134-TC; 84484-TC; 85025-TC; 86706; 87081-TC; 87340; 90935-TC; 92526; 92611-TC; 93307-TC; A4216; A6248; C9803; G0378; J0360; J7030; P9047